=== PATIENT | female | born 1960 | race Caucasian/White ===

== ENCOUNTER → 2017-12-08 08:47 | Outpatient (CLI) | payer OTHER, SELFPAY ==
[2017-12-08 09:40] LABS: AST(SGOT) 19 U/L (15-37); Alanine Aminotransfer ALT/SGPT 26 U/L (13-56); Albumin, Serum 3.7 g/dL (3.2-5.0); Alkaline Phosphatase 95 U/L (45-117); Bilirubin, Direct 0.18 mg/dL (0.00-0.30); Cholesterol 201 mg/dL (200); Globulin 4.1 g/dL (2.2-4.2); High Density Lipoprotein 43 mg/dL; Protein, Total 7.8 g/dL (6.4-8.2); Triglycerides 305 mg/dL; Very Low Density Lipoprotein 61 mg/dL (5-40)
== END ==
PROVIDERS: Family Provider Family Medicine; PCP Family Medicine; Visit Provider Internal Medicine Cardiovascular Disease
DX: E78.5 Hyperlipidemia, unspecified (principal); I25.10 Atherosclerotic heart disease of native coronary artery without angina pectoris; Z79.899 Other long term (current) drug therapy
CPT/HCPCS: 36415; 80061; 80076

== ENCOUNTER → 2017-12-21 16:12 | Outpatient (CLI) | payer BC, SELFPAY ==
--- NOTE | 2017-12-21 16:16 | HPBI_ITS ---
MAMMOGRAPHY - BILATERAL SCREENING REASON FOR EXAM: Female, 57 years old. Routine annual screening examination. PERTINENT HISTORY: Non-contributory. TECHNIQUE: Digital bilateral breast ivory (3D mammographic acquisition) in the CC and MLO projections. 2-D mediolateral oblique (MLO) and craniocaudad (CC) views of both breasts were obtained. CAD: Full Field Digital Mammography with Computer Added Detection was performed. COMPARISON: Comparison is made with prior study date August 09, 2016 and August 05, 2015. FINDINGS: Breast Composition: There are scattered areas of fibroglandular density. There are no dominant masses or suspicious calcifications. No other significant abnormalities are identified. There has been no significant change since the prior study. HPBI/SCREENING MAMM (CAD), BILAT IMPRESSION: Stable bilateral screening mammogram. Yearly follow-up mammogram recommended. (A) ASSESSMENT CATEGORY: BIRADS Category 1: Negative. A letter regarding these results will be sent to the patient by the facility within 30 days. Approximately 10% of breast cancers are not detected by mammography. A normal mammogram should not delay biopsy of a clinically suspicious abnormality. [id number] Electronically Signed: David Cox MD at 9:55 EST Tel [phone], Service support ,
== END ==
PROVIDERS: Family Provider Family Medicine; PCP Family Medicine; Visit Provider Family Medicine
DX: Z12.31 Encounter for screening mammogram for malignant neoplasm of breast (principal)
CPT/HCPCS: 77063; 77067

== ENCOUNTER → 2017-12-27 06:17 | Outpatient (CLI) | payer BC, SELFPAY ==
--- NOTE | 2017-12-27 13:00 | STRESSREP ---
Stress Test Report Exercise myocardial perfusion stress test. 57-year-old lady with a history of midsternal chest burning with activity medications simvastatin Plavix metoprolol aspirin. Status post stents in December 2013. Stress protocol: Resting EKG demonstrates sinus rhythm with rate of 71 bpm normal intervals are noted resting blood pressure is 130/80 mmHg. The patient exercised according to the regular Samuel protocol for total duration of 7 minutes and 30 seconds. Patient completed 1 minute and 30 seconds into stage III of the Samuel protocol. The maximum heart rate attained was 146 bpm which was 90% of maximum predicted heart rate the maximum workload attained was 9.3 metabolic equivalents. At rest there were no ST or T-wave changes noted suggest abnormal flow reserve or ischemia at peak exercise upsloping ST changes only were noted with normally the criteria for ischemia. No clinical angina was noted. The resting blood pressure is 130/80 mmHg with a peak blood pressure 142/78 mmHg rate pressure product was 18,600. Myocardial perfusion protocol. 11.3 mCi of technetium 99m sestamibi was injected at rest. The patient exercised according to regular Samuel protocol for 7 minutes 30 seconds attaining 90% maximum predicted heart rate at peak exercise 33.1 mCi of technetium 99m sestamibi was injected stress images were obtained stress and rest images were reconstructed and compared in the short axis vertical long and horizontal long axis. Patient experienced midsternal burning during the exercise which helps appeared to subside on discontinuation of exercise. Perfusion SPECT analysis: Review of the stress images demonstrate Uniform uptake of tracer noted in all areas myocardium. There is a very small portion of the mid anterior wall with mildly reduced perfusion which appears to improved somewhat on the resting. Ischemia cannot be completely excluded on the scan though less likely. No obvious areas of infarct are noted. Gated SPECT analysis: The gated ejection fraction is noted to be 82%. Conclusion: Exercise myocardial perfusion stress test with possible mid anterior ischemia at a moderate to high workload. Chest burning of uncertain clinical significance. Preserved ejection fraction.
== END ==
PROVIDERS: Family Provider Family Medicine; PCP Family Medicine; Visit Provider Physician Assistant Medical
DX: R07.9 Chest pain, unspecified (principal)
CPT/HCPCS: 78452; 93017; A9500; A4216

== ENCOUNTER → 2017-12-28 08:42 | Outpatient (CLI) | payer BC, SELFPAY ==
--- NOTE | 2017-12-28 08:55 | RAD_ITS ---
STUDY: X-RAY CHEST REASON FOR EXAM: Female, 57 years old. One month history of chest pain and shortness of breath. Abnormal stress test. TECHNIQUE: PA and lateral views of the chest. COMPARISON: Comparison is made with prior study June 22, 2014. FINDINGS: Hyperinflation. There is no demonstrated pleural abnormality. Normal size heart. Normal mediastinum and noa. Normal visualized pulmonary arteries. Normal visualized aortic arch and descending thoracic aorta. There is demineralization of the osseous structures. Normal visualized ribs, clavicles, and shoulders. There is no demonstrated abnormality of the visualized soft tissue structures of the upper abdomen. RAD/Chest PA and Lateral IMPRESSION: No acute abnormality is seen. Electronically Signed: David Cox MD at 15:32 EDT Tel [phone], Service support ,
[2017-12-28 09:29] LABS: Absolute Lymphocyte Count 2.17 X10^3/ul (0.83-4.51); Absolute Neutrophil Count 2.6 X10^3/uL (2.0-7.7); Basophil# 0.04 X10^3/uL; Basophil% 0.7 % (0-1); Eosinophil# 0.24 X10^3/uL; Eosinophils% 4.4 % (0-5); Hemoglobin 13.3 g/dl (12.0-15.0); Lymphocyte # 2.17 X10^3/ul (4.0); Lymphocyte % 39.4 % (19-41); Mean Corp Hgb Conc 31.7 g/gl (32-36); Mean Corpuscular Hgb 27.4 pg (27.0-32.0); Mean Corpuscular Volume 86.6 fL (81-99); Monocyte# 0.41 X10^3/uL; Monocyte% 7.4 % (0-10); Neutrophil # 2.64 X10^3/uL (2.7-7.7); Neutrophil % 47.9 % (47-70); Platelet Count 355 K/mm3 (150-450); Prothrombin Time (Protime)PT. 12.7 SECONDS (11.7-14.9); RBC Distribution Width CV 13.8 % (11.6-14.6); RBC Distribution Width SD 43.4 fl (35.1-43.9); Red Blood Count 4.85 M/mm3 (4.2-5.4); White Blood Count 5.5 K/mm3 (4.4-11.0)
[2017-12-28 09:30] LABS: Partial Thromboplast Time 26.9 Seconds (24.1-36.2)
[2017-12-28 09:33] LABS: POSITIVE COUNT NO; POSITIVE DIFFERENTIAL NO; POSITIVE MORPHOLOGY NO
[2017-12-28 09:49] LABS: Anion Gap 9 (5-15); BUN 10 mg/dL (7-18); BUN/Creat Ratio 10.2 RATIO (10-20); Chloride 107 mmol/L (98-107); Creatinine, Serum 0.98 mg/dL (0.55-1.02); EST Glomerular Filtration Rate 62 mL/min (>60); Est Glom Filt Rate - Afr Amer 75 mL/min (>60); Glucose 94 mg/dL (74-106); Potassium 3.9 mmol/L (3.5-5.1); Sodium Level 143 mmol/L (136-145)
== END ==
PROVIDERS: Family Provider Family Medicine; PCP Family Medicine; Visit Provider Physician Assistant Medical
DX: I25.10 Atherosclerotic heart disease of native coronary artery without angina pectoris (principal); R07.9 Chest pain, unspecified; R94.39 Abnormal result of other cardiovascular function study
CPT/HCPCS: 36415; 71046; 80048; 85025; 85610; 85730

== ENCOUNTER → 2018-01-03 06:53 | Day surgery (SDC) | payer BC, SELFPAY ==
[2018-01-02 13:51] VITALS: BMI 26.6
--- NOTE | 2018-01-03 07:37 | EKG12_ITS ---
Test Reason : PRE CATH Blood Pressure : / mmHG Vent. Rate : 062 BPM Atrial Rate : 062 BPM P-R Int : 176 ms QRS Dur : 088 ms QT Int : 412 ms P-R-T Axes : 041 036 045 degrees QTc Int : 418 ms Normal sinus rhythm Normal ECG When compared with ECG of 22-JUN-2014 23:10, Nonspecific T wave abnormality no longer evident in Inferior leads T wave amplitude has increased in Anterolateral leads Confirmed by CHELA VEGA ([id number]), newspaper editor managing KYLEE ARIAS ([id number]) on 01/05/2018 3:18:05 PM Referred By: Fede Andre Confirmed By:CHELA VEGA
--- NOTE | 2018-01-03 08:46 | CL.D_ITS ---
Patient Name: ANTIONE BULLOCK Study Date: 01/03/2018 Performing: Fede Andre MD Ht: 64.17 inches 163 cm : 1960 Wt: 154.32 lbs 70 kg Age: 57 Gender: female BSA: 1.76 PROCEDURE(S) PERFORMED [id number]/LV CLINICAL PROFILE AND INDICATIONS INDICATIONS: 57-year-old lady with a history of previous coronary artery disease and chest pain w ith abnormal stress test.. Stress/Imaging Standard Exercise Stress Test: Yes Result: Positive Low Risk Angina Classification Anginal Classification w/in 2 Weeks: No symptoms CAD Presentations: Symptom unlikely to be ischemic. CONCLUSIONS Coronary artery disease with previously placed stents in the LAD, circumflex, and right coronary shin ry all patent RECOMMENDATIONS Medical therapy DESCRIPTION OF PROCEDURE The patient arrived to the procedure lab. The risks and benefits of the procedure as well as a full d escription of our services here and current unavailability of surgical backup were fully explained to the patient and/or their significant other prior to the catheterization. The Timeout was completed, verifying the correct patient and procedure. The patient's procedural site was prepped and draped in the usual fashion. Local anesthetic was given subcutaneously to right groin region with Lidocaine 2%. Using a modified Seldinger technique, arterial access was obtained via the right femoral artery, a 5 Fr sheath was inserted. Left Coronary Artery selective angiography was performed in multiple views u sing a 5 Fr. JL4 catheter. Right Coronary Artery selective angiography was then performed in multiple views using a 5 Fr. 3DRC (Benedicto) catheter. Left Ventriculography was performed in GURROLA projection using a 5 Fr. Pigtail catheter. LV to AO pullback pressures were then recorded.The arterial sheath wa s pulled and manual compression applied until hemostasis is achieved. CORONARY ANGIOGRAPHY DOMINANCE: Right Dominant LEFT HEART ASSESSMENT Left Ventricular Ejection Fraction: by LV Gram 60 % Normal Left Ventricular systolic function LEFT MAIN: Angiographically normal LEFT ANTERIOR DECENDING ARTERY: Mild luminal irregularities MID LAD: Previously placed stent is patent CIRCUMFLEX ARTERY: MID CIRC: Previously placed stent is patent RIGHT CORONARY ARTERY: MID RCA: Mild luminal irregularities, Previously placed stent is patent COMPLICATIONS No Complications PROCEDURE MEDICATIONS Versed 1 mg IV Versed 1 mg IV Oxygen: 2 L/min via nasal cannula SUMMARY OF HEMODYNAMIC DATA Time AIR REST ECG 07:37:05 AO 130/72 (95) SA 08:03:35 LV 114/3, 10 08:10:50 LV 115/3, 11 08:10:56 LV 107/-3, 16 08:11:37 LVp 113/-4, 16 08:11:43 AOp 120/60 (86) 08:11:48 Signed By Fede Andre MD On 01/03/2018 8:45:56 AM Fede Andre MD
== END ==
PROVIDERS: Family Provider Family Medicine; PCP Family Medicine; Visit Provider Internal Medicine Cardiovascular Disease
DX: R07.89 Other chest pain (principal); I25.10 Atherosclerotic heart disease of native coronary artery without angina pectoris; R94.39 Abnormal result of other cardiovascular function study; Z95.5 Presence of coronary angioplasty implant and graft; E78.5 Hyperlipidemia, unspecified; R53.83 Other fatigue; R10.13 Epigastric pain; Z79.899 Other long term (current) drug therapy; Z79.02 Long term (current) use of antithrombotics/antiplatelets; Z79.82 Long term (current) use of aspirin; Z82.49 Family history of ischemic heart disease and other diseases of the circulatory system
CPT/HCPCS: 93005; 93458; 99152; J7040; C1769; Q9967

== ENCOUNTER 2018-01-30 07:37 | Day surgery (SDC) | payer BC, SELFPAY ==
[2018-01-30 08:01] VITALS: BP 111/76; PULSE 93; RESP 16; TEMP 36.2; O2SAT 97; BMI 26.1
--- NOTE | 2018-01-30 09:19 | PCM.OPRPT ---
Problem List (1) Epigastric pain Status: Acute (2) Gastro-esophageal reflux disease without esophagitis Status: Acute (3) Colon cancer screening Status: Acute Report of Operation Date of Procedure: 01/30/18 Pre-Operative Diagnosis: r10.13 epigastric abdominal pain. k21.9 gastroesophageal reflux disease without esophagitis. z12.11 screening colonoscopy Post-Operative Diagnosis: Same Surgery/Procedure Performed:: 54026 esophagogastroduodenoscopy. 45787 colonoscopy Type of Anesthesia:: MAC Anesthesiologist: Ozzy Camp Description of Procedure: Patient was brought into the endoscopy suite. Back of her throat was sprayed with Cetacaine spray. Bite-block was placed. She was placed in the left lateral decubitus position. She was given graded anesthesia. The scope was inserted in the back of the oropharynx and directed down the esophagus into the stomach and into the duodenum without difficulty. Operative findings: 1. Duodenum: Normal appearance no mass lesions no ulcerations. 2. Stomach: Normal appearance no mass lesions retroflexion showed a small hiatal hernia. She did have a few fundic gland polyps which I did not biopsy since she was on her Plavix. 3. Esophagus: Normal appearance no mass lesions no signs of esophagitis Z line was entirely normal. The scope was inserted into the rectum. Scope was directed through the sigmoid colon, descending colon, transverse colon, ascending colon, to the cecum. Operative findings: 1. Cecum: Normal appearance no mass lesions normal ileocecal valve. 2. Ascending colon: Normal appearance no mass lesions. 3. Transverse colon: Normal appearance no mass lesions 4. Descending colon: Normal appearance no mass lesions 5. Sigmoid colon: Normal appearance no mass lesion diffuse scattered diverticuli were identified. 6. Rectum: Normal appearance no mass lesions few internal hemorrhoids the scope was withdrawn. Digital rectal exam was performed showing a smooth prostate. The patient will need another colonoscopy in 10 years. Given the fact that there is absolutely no signs of any abnormalities in the esophagus I am going to have to obtain esophageal manometry to assess the motility of the esophagus. - Admit VTE Documentation VTE Present on Admission: No VTE Mechan Device Prophylaxis: None VTE Pharm Prophylaxis ordered?: No Reason prophylaxis not ordered:: Treatment Not Indicated
[2018-01-30 09:21] VITALS: BP 105/60; BP 111/76; PULSE 78; RESP 16; TEMP 36.4; O2SAT 95
[2018-01-30 09:25] VITALS: BP 105/65; BP 111/76; PULSE 72; RESP 16; O2SAT 98
[2018-01-30 09:30] VITALS: BP 111/76; BP 97/60; PULSE 70; RESP 16; O2SAT 96
[2018-01-30 09:35] VITALS: BP 106/61; BP 111/76; PULSE 68; RESP 16; TEMP 36.6; O2SAT 96
[2018-01-30 10:13] VITALS: BP 111/76
== END 2018-01-30 10:14 | disposition home or self-care (01) ==
LOC: EN 07:39 → AC 07:39
PROVIDERS: Family Provider Family Medicine; PCP Family Medicine; Visit Provider Surgery
PROC: 0DJD8ZZ Inspection of Lower Intestinal Tract, Via Natural or Artificial Opening Endoscopic (ICD-10-PCS; CPT 45378; principal; 2018-01-30 08:55)
DX: Z12.11 Encounter for screening for malignant neoplasm of colon (principal); K44.9 Diaphragmatic hernia without obstruction or gangrene; K21.9 Gastro-esophageal reflux disease without esophagitis; K31.7 Polyp of stomach and duodenum; K64.8 Other hemorrhoids; J45.909 Unspecified asthma, uncomplicated; I25.10 Atherosclerotic heart disease of native coronary artery without angina pectoris; E78.5 Hyperlipidemia, unspecified; F32.9 Major depressive disorder, single episode, unspecified; F41.9 Anxiety disorder, unspecified; Z79.82 Long term (current) use of aspirin; Z79.899 Other long term (current) drug therapy; Z78.0 Asymptomatic menopausal state; Z95.5 Presence of coronary angioplasty implant and graft
CPT/HCPCS: 43235; 45378; J7120

== ENCOUNTER 2018-03-02 19:45 | Emergency (ER) | payer BC, SELFPAY ==
[2018-03-02 19:46] VITALS: BP 131/81; PULSE 94; RESP 16; TEMP 37; O2SAT 95; BMI 26.6
[2018-03-02 19:49] VITALS: O2SAT 98
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
[2018-03-02 19:59] VITALS: BP 140/74; PULSE 86; RESP 16; O2SAT 95
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
[2018-03-02] MEDS: Ondansetron 4 MG/2 ML Vial IV ×2 (20:02→21:15)
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
[2018-03-02 20:19] LABS: Absolute Lymphocyte Count 4.35 X10^3/ul (0.83-4.51); Absolute Neutrophil Count 3.7 X10^3/uL (2.0-7.7); Basophil# 0.05 X10^3/uL; Basophil% 0.6 % (0-1); Eosinophils% 2.2 % (0-5); Hematocrit 36.9 % (37-47); Hemoglobin 12.4 g/dl (12.0-15.0); Lymphocyte # 4.35 X10^3/ul (4.0); Lymphocyte % 48.4 % (19-41); Mean Corp Hgb Conc 33.6 g/gl (32-36); Mean Corpuscular Hgb 28.3 pg (27.0-32.0); Mean Corpuscular Volume 84.2 fL (81-99); Mean Platelet Vol. 10.5 fl (6.2-12.0); Monocyte# 0.69 X10^3/uL; Monocyte% 7.7 % (0-10); Neutrophil # 3.67 X10^3/uL (2.7-7.7); Neutrophil % 40.9 % (47-70); POSITIVE COUNT NO; POSITIVE DIFFERENTIAL NO; POSITIVE MORPHOLOGY NO; Platelet Count 342 K/mm3 (150-450); RBC Distribution Width CV 13.9 % (11.6-14.6); RBC Distribution Width SD 42.7 fl (35.1-43.9); Red Blood Count 4.38 M/mm3 (4.2-5.4)
[2018-03-02 20:26] LABS: Anion Gap 13 (5-15); BUN 13 mg/dL (7-18); Calcium,Total 8.7 mg/dL (8.5-10.1); Chloride 109 mmol/L (98-107); Creatinine, Serum 1.08 mg/dL (0.55-1.02); EST Glomerular Filtration Rate 55 mL/min (>60); Est Glom Filt Rate - Afr Amer 67 mL/min (>60); Estimated Creatinine Clearance 48.43 ml/min; Glucose 115 mg/dL (74-106); Potassium 3.2 mmol/L (3.5-5.1); Sodium Level 144 mmol/L (136-145)
[2018-03-02 20:43] VITALS: BP 137/70; PULSE 101; RESP 18; O2SAT 100; O2SAT 99
[2018-03-02 20:43] LABS: AST(SGOT) 28 U/L (15-37); Alanine Aminotransfer ALT/SGPT 28 U/L (13-56); Albumin, Serum 3.9 g/dL (3.2-5.0); Alkaline Phosphatase 83 U/L (45-117); Bilirubin, Direct 0.14 mg/dL (0.00-0.30); Globulin 3.4 g/dL (2.2-4.2); Protein, Total 7.3 g/dL (6.4-8.2)
[2018-03-02 21:31] VITALS: BP 129/73; PULSE 87; RESP 16; O2SAT 100
--- NOTE | 2018-03-02 21:41 | ED.RN ---
dhruv here- transferring to [facility]. family members present. pt is very lethargic but can answer questions appropriately. flight nurses agreed to not given dilaudid at this time d/t mental status.
== END 2018-03-02 21:43 | disposition short-term general hospital (02) ==
PROVIDERS: Emergency Provider Emergency Medicine; Family Provider Family Medicine; PCP Family Medicine
DX: S06.5X0A Traumatic subdural hemorrhage without loss of consciousness, initial encounter (principal); V89.2XXA Person injured in unspecified motor-vehicle accident, traffic, initial encounter; Y93.9 Activity, unspecified; Y92.9 Unspecified place or not applicable; Y99.9 Unspecified external cause status; Z79.02 Long term (current) use of antithrombotics/antiplatelets; Z79.82 Long term (current) use of aspirin; Z79.899 Other long term (current) drug therapy; Z95.5 Presence of coronary angioplasty implant and graft
CPT/HCPCS: 51702; 70450; 71260; 72125; 74177; 80048; 80076; 85025; 96361; 96374; 96376; 99285; J7030; Q9967; J2405

== ENCOUNTER 2018-03-10 15:16 | Emergency (ER) | payer BC, SELFPAY ==
[2018-03-10 15:17] VITALS: BP 136/87; PULSE 86; RESP 14; TEMP 36.9; O2SAT 94; BMI 26.7
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
[2018-03-10] MEDS: Ondansetron 4 MG/2 ML Vial IV (15:55)
[2018-03-10] MEDS: 0.9% Normal Saline 1,000 ML 150 ML IV (15:56)
[2018-03-10] MEDS: HYDROmorphone 1 MG/ML Syringe IV (15:56)
[2018-03-10 16:32] VITALS: BP 139/76; PULSE 62; RESP 12; O2SAT 95
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
[2018-03-10 17:36] VITALS: BP 138/76; PULSE 60; RESP 14; O2SAT 93
[2018-03-10 18:04] VITALS: BP 120/78; PULSE 62; RESP 15; O2SAT 99
--- NOTE | 2018-03-10 18:17 | DCINST.ED_ITS ---
ED Disposition - Plan for ED Patient: Chief Complaint: Head Injury Instructions: ED Cephalgia Unspecified Prescriptions: Ondansetron [Zofran Odt] 4 mg PO Q8H PRN PRN #10 tab PRN Reason: Nausea Hydrocodone/Acetaminophen [[place] 5-325 Tablet] 1 - 2 each PO 4X/DAY PRN PRN 5 Days #20 tablet PRN Reason: Pain Referrals: Charlotte Fatima DO [Primary Care Provider] - Additional Instructions: Follow up with Dr. Guerrero next week as scheduled. Don't take plavix again until after you see him.
[2018-03-10] MEDS: Ondansetron 4 MG/2 ML Vial IM (18:21)
--- NOTE | 2018-03-10 18:56 | ED.RN ---
PT SAT UP FOR DISCHARGE AND BEGAN VOMITING. DR. SIERRA INFORMED. WROTE FOR ZOFRAN IM, AND HOME GOING PRESCRIPTIONS THAT WAS ELECTRONICALLY SUBMITTED TO PT PHARMACY. PT OBSERVED FOR AWHILE, AND THEN PLACED INTO WHEELCHAIR. PT WHEELED OUT OF DEPT. PT TOLERATED WELL BUT REPORTED CONTINUED NAUSEA.
== END 2018-03-10 18:58 | disposition home or self-care (01) ==
LOC: ED 15:37
PROVIDERS: Emergency Provider Emergency Medicine; Family Provider Family Medicine; PCP Family Medicine
DX: S06.5X9D Traumatic subdural hemorrhage with loss of consciousness of unspecified duration, subsequent encounter (principal); V49.9XXD Car occupant (driver) (passenger) injured in unspecified traffic accident, subsequent encounter; I25.10 Atherosclerotic heart disease of native coronary artery without angina pectoris; Z79.02 Long term (current) use of antithrombotics/antiplatelets; Z79.82 Long term (current) use of aspirin; Z79.899 Other long term (current) drug therapy; Z88.5 Allergy status to narcotic agent
CPT/HCPCS: 70450; 96361; 96372; 96374; 96375; 99285; J7030; J2405

== ENCOUNTER 2018-08-21 12:00 | Outpatient (RCR) | payer BC, SELFPAY ==
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
== END 2018-08-21 19:00 | disposition home or self-care (01) ==
LOC: SP 12:00
PROVIDERS: Family Provider Family Medicine; PCP Family Medicine
DX: S06.5X9D Traumatic subdural hemorrhage with loss of consciousness of unspecified duration, subsequent encounter (principal); R41.3 Other amnesia
CPT/HCPCS: 92507; 92523

== ENCOUNTER → 2018-10-16 07:56 | Outpatient (CLI) | payer BC, SELFPAY ==
[2018-10-16 10:59] LABS: AST(SGOT) 22 U/L (15-37); Alanine Aminotransfer ALT/SGPT 26 U/L (13-56); Albumin, Serum 3.9 g/dL (3.2-5.0); Alkaline Phosphatase 92 U/L (45-117); Bilirubin, Direct 0.22 mg/dL (0.00-0.30); Cholesterol 180 mg/dL (200); Globulin 3.8 g/dL (2.2-4.2); High Density Lipoprotein 49 mg/dL; Protein, Total 7.7 g/dL (6.4-8.2); Triglycerides 280 mg/dL; Very Low Density Lipoprotein 56 mg/dL (5-40)
== END ==
PROVIDERS: Family Provider Family Medicine; PCP Family Medicine; Referring Provider Internal Medicine Cardiovascular Disease; Visit Provider Internal Medicine Cardiovascular Disease
DX: E78.5 Hyperlipidemia, unspecified (principal)
CPT/HCPCS: 36415; 80061; 80076

== ENCOUNTER → 2018-12-28 13:13 | Outpatient (CLI) | payer BC, SELFPAY ==
[2018-10-30 14:07] VITALS: BMI 26.4
--- NOTE | 2018-12-28 13:18 | MRI_ITS ---
STUDY: MRI BRAIN WITHOUT CONTRAST REASON FOR EXAM: Female, 58 years old. Headache. Previous surgery to relieve subdural hematoma. TECHNIQUE: Standardized multiplanar fat and water weighted pulse sequences were obtained. COMPARISON: CT head without contrast 03/10/2018. FINDINGS: No restricted diffusion to suspect acute or subacute ischemic infarct. Normal size of the ventricles and extra-axial spaces for the patient's age. Normal white matter tracts of the supratentorial brain. Normal bilateral basal ganglia. Normal thalami. There is no extra-axial fluid accumulation. Normal flow voids within the major intracranial circulation suggesting patency by spin echo criteria. Normal sella turcica, pituitary gland, infundibular stalk, optic chiasm and hypothalamus. Normal tectal plate and pineal gland. Normal midbrain, claude and medulla. Normal cerebellum. Normal basal cisterns. Normal bilateral temporal bones. Normal bilateral internal auditory canals. No demonstrated orbital abnormality, within the constraints of a routine brain study. Normal visualized paranasal sinuses. Normal calvarium and skull base. Normal visualized soft tissue structures. Normal visualized upper cervical spine. MRI/Brain without Contrast IMPRESSION: 1. No MRI evidence of recurrent or residual subdural hematoma following surgical evacuation. 2. Normal MRI of the brain without contrast. Electronically Signed: Roberth Todd MD at 14:03 EDT , Service support ,
== END ==
PROVIDERS: Family Provider Family Medicine; PCP Family Medicine; Referring Provider Family Medicine; Visit Provider Family Medicine
DX: H93.19 Tinnitus, unspecified ear (principal); R51 Headache; Z86.73 Personal history of transient ischemic attack (TIA), and cerebral infarction without residual deficits
CPT/HCPCS: 70551

== ENCOUNTER → 2019-01-11 07:42 | Outpatient (CLI) | payer BC, SELFPAY ==
[2018-10-30 14:07] VITALS: BMI 26.4
--- NOTE | 2019-01-11 07:44 | BI_ITS ---
MAMMOGRAPHY - BILATERAL SCREENING REASON FOR EXAM: Female, 58 years old. Routine annual screening examination. PERTINENT HISTORY: Non-contributory. TECHNIQUE: Digital bilateral breast ivory (3D mammographic acquisition) in the CC and MLO projections. 2-D mediolateral oblique (MLO) and craniocaudad (CC) views of both breasts were obtained. CAD: Full Field Digital Mammography with Computer Added Detection was performed. COMPARISON: Comparison is made with prior study dated December 21, 2017 and August 09, 2016. FINDINGS: Breast Composition: There are scattered areas of fibroglandular density. There are no dominant masses or suspicious calcifications. No other significant abnormalities are identified. There has been no significant change since the prior study. BI/SCREENING MAMM (CAD), BILAT IMPRESSION: Stable bilateral screening mammogram. Yearly follow-up mammogram recommended. (A) ASSESSMENT CATEGORY: BIRADS Category 1: Negative. A letter regarding these results will be sent to the patient by the facility within 30 days. Approximately 10% of breast cancers are not detected by mammography. A normal mammogram should not delay biopsy of a clinically suspicious abnormality. [id number] Electronically Signed: David Cox, at 9:57 EDT , Service support ,
== END ==
PROVIDERS: Family Provider Family Medicine; PCP Family Medicine; Referring Provider Family Medicine; Visit Provider Family Medicine
DX: Z12.31 Encounter for screening mammogram for malignant neoplasm of breast (principal)
CPT/HCPCS: 77063; 77067

== ENCOUNTER → 2019-07-28 08:33 | Outpatient (CLI) | payer BC, SELFPAY ==
[2018-10-30 14:07] VITALS: BMI 26.4
[2019-07-28 10:05] LABS: AST(SGOT) 19 U/L (15-37); Alanine Aminotransfer ALT/SGPT 28 U/L (13-56); Albumin, Serum 3.8 g/dL (3.2-5.0); Alkaline Phosphatase 94 U/L (45-117); Cholesterol 159 mg/dL (200); Globulin 4.1 g/dL (2.2-4.2); High Density Lipoprotein 45 mg/dL; Protein, Total 7.9 g/dL (6.4-8.2); Triglycerides 178 mg/dL; Very Low Density Lipoprotein 36 mg/dL (5-40)
== END ==
PROVIDERS: Family Provider Family Medicine; PCP Family Medicine; Referring Provider Internal Medicine Cardiovascular Disease; Visit Provider Internal Medicine Cardiovascular Disease
DX: E78.5 Hyperlipidemia, unspecified (principal)
CPT/HCPCS: 36415; 80061; 80076

== ENCOUNTER → 2020-08-06 16:15 | Outpatient (CLI) | payer BC, SELFPAY ==
[2020-02-06 10:38] VITALS: BMI 27.8
--- NOTE | 2020-08-06 16:17 | BI_ITS ---
MAMMOGRAPHY - BILATERAL SCREENING REASON FOR EXAM: Female, 60 years old. Routine annual screening examination. PERTINENT HISTORY: Non-contributory. TECHNIQUE: Digital bilateral breast henny (3D mammographic acquisition) in the CC and MLO projections. 2-D mediolateral oblique (MLO) and craniocaudad (CC) views of both breasts were obtained. CAD: Full Field Digital Mammography with Computer Added Detection was performed. COMPARISON: Comparison is made with prior study dated 01/11/2019 and 12/21/2017. FINDINGS: Breast Composition: There are scattered areas of fibroglandular density. There are no dominant masses or suspicious calcifications. No other significant abnormalities are identified. There has been no significant change since the prior study. BI/SCREEN MAMM (CAD) W/HENNY BILAT IMPRESSION: Stable bilateral screening mammogram. Yearly follow-up mammogram recommended. (A) ASSESSMENT CATEGORY: BIRADS Category 1: Negative. A letter regarding these results will be sent to the patient by the facility within 30 days. Approximately 10% of breast cancers are not detected by mammography. A normal mammogram should not delay biopsy of a clinically suspicious abnormality. [id number] Electronically Signed: David Cox, at 8:22 EDT , Service support ,
== END ==
PROVIDERS: PCP Family Medicine; Referring Provider Family Medicine; Visit Provider Family Medicine
DX: Z12.31 Encounter for screening mammogram for malignant neoplasm of breast (principal)
CPT/HCPCS: 77063; 77067

== ENCOUNTER → 2020-09-03 09:02 | Outpatient (CLI) | payer MEDICARE, SELFPAY ==
[2020-02-06 10:38] VITALS: BMI 27.8
[2020-09-03 13:24] LABS: AST(SGOT) 21 U/L (15-37); Alanine Aminotransfer ALT/SGPT 37 U/L (13-56); Albumin, Serum 3.9 g/dL (3.2-5.0); Alkaline Phosphatase 82 U/L (45-117); Bilirubin, Direct 0.18 mg/dL (0.00-0.30); Cholesterol 174 mg/dL (200); Globulin 3.8 g/dL (2.2-4.2); High Density Lipoprotein 45 mg/dL; Protein, Total 7.7 g/dL (6.4-8.2); Triglycerides 234 mg/dL; Very Low Density Lipoprotein 47 mg/dL (5-40)
== END ==
PROVIDERS: PCP Family Medicine; Visit Provider Physician Assistant Medical
DX: I25.10 Atherosclerotic heart disease of native coronary artery without angina pectoris (principal); E78.00 Pure hypercholesterolemia, unspecified
CPT/HCPCS: 36415; 80061; 80076

== ENCOUNTER → 2020-12-16 07:12 | Outpatient (CLI) | payer MEDICARE, SELFPAY ==
[2020-12-04 10:53] VITALS: BMI 27.6
--- NOTE | 2020-12-16 08:49 | STRESSREP ---
Stress Test Report Date: 12-16-2020 Procedure: Exercise tolerance test/imaging study Indications: Chest pain; CAD; PCI: Status post COVID-19 Consent: Per the patient Procedure: The patient exercised on a Samuel protocol for 6 minutes completing Stage II achieving a peak heart rate of 139 bpm (87% predicted maximal heart rate) with a peak blood pressure 162/60 mmHg and a peak MET capacity of 7 METs. The baseline ECG demonstrated normal sinus rhythm. The peak exercise ECG demonstrated no obvious ECG changes. There were no cardiac dysrhythmias pretest, during exercise, or recovery. The functional capacity was considered average. There was the patient noted a little burning and a little shortness of breath with subsequent spontaneous resolution. The examination was discontinued secondary to dyspnea. Impression: 1. Technically adequate (percent predicted maximal heart rate greater than 85%) exercise tolerance test 2. Peak exercise ECG with no obvious ECG changes 3. There were no cardiac dysrhythmias pretest, during exercise, or recovery 4. Nuclear images pending Myocardial perfusion imaging study: Technique: The patient was injected with 11.3 mCi of technetium 99m Cardiolite and subsequently rest SPECT Cardiolite nuclear imaging was obtained in the horizontal long, vertical long, and short axis views. The patient exercised on a Samuel protocol for 6 minutes completing Stage II achieving a peak heart rate of 139 bpm (87% predicted maximal heart rate) with a peak blood pressure 162/60 mmHg and a peak MET capacity of 7 METs. The patient was injected with 32.1 mCi of technetium 99m Cardiolite and subsequently stress SPECT Cardiolite nuclear imaging was obtained in the horizontal long, vertical long, and short axis views. A gated Cardiolite study at peak stress was obtained. Interpretation: Rest and stress SPECT Cardiolite nuclear imaging status post realignment, normalization, and attenuation correction, demonstrates the appearance of body motion during image acquisition and the appearance of a small area of subtle diminished tracer uptake in the mid anterior segments which appears to be more prominent at rest as opposed to stress. There is end systolic thickening and brightening. The gated Cardiolite study demonstrates myocardial thickening and inward wall motion. The reported LVEF is 75%. Impression: 1. Rest and stress SPECT Cardiolite nuclear imaging demonstrate a small area of subtle diminished tracer uptake in the mid anterior segments which appears to be more prominent at rest as opposed to stress appearing compatible with shifting soft tissue attenuation/artifact with no myocardial perfusion changes considered diagnostic for associated stress-induced myocardial ischemia. 2. The gated Cardiolite study reports an LVEF of 75%. This note was generated with [employer] software. It may contain incorrect words, spelling, and punctuation that were not noted in checking the note before signing.
== END ==
PROVIDERS: PCP Family Medicine; Referring Provider Internal Medicine Cardiovascular Disease; Visit Provider Internal Medicine Cardiovascular Disease
DX: Z95.5 Presence of coronary angioplasty implant and graft (principal)
CPT/HCPCS: 78452; 93017; A9500; A4216

== ENCOUNTER → 2021-05-25 09:42 | Outpatient (CLI) | payer MEDICARE, SELFPAY ==
[2020-12-04 10:53] VITALS: BMI 27.6
[2021-05-25 11:17] LABS: AST(SGOT) 22 U/L (15-37); Alanine Aminotransfer ALT/SGPT 36 U/L (13-56); Albumin, Serum 3.9 g/dL (3.2-5.0); Alkaline Phosphatase 73 U/L (45-117); Bilirubin, Direct 0.18 mg/dL (0.00-0.30); Cholesterol 193 mg/dL (200); Globulin 3.8 g/dL (2.2-4.2); High Density Lipoprotein 49 mg/dL; Protein, Total 7.7 g/dL (6.4-8.2); Triglycerides 302 mg/dL; Very Low Density Lipoprotein 60 mg/dL (5-40)
== END ==
PROVIDERS: PCP Family Medicine; Referring Provider Physician Assistant Medical; Visit Provider Physician Assistant Medical
DX: E78.00 Pure hypercholesterolemia, unspecified (principal)
CPT/HCPCS: 36415; 80061; 80076

== ENCOUNTER → 2021-06-06 09:45 | Outpatient (CLI) | payer MEDICARE, SELFPAY ==
[2021-06-06 10:30] LABS: Hemoglobin A1c 5.7 % (3.8-5.6)
== END ==
PROVIDERS: PCP Family Medicine; Visit Provider Physician Assistant Medical
DX: R73.09 Other abnormal glucose (principal)
CPT/HCPCS: 36415; 83036

== ENCOUNTER → 2021-08-10 12:39 | Outpatient (CLI) | payer MEDICARE, SELFPAY ==
--- NOTE | 2021-08-10 12:42 | BI_ITS ---
MAMMOGRAPHY - BILATERAL SCREENING REASON FOR EXAM: Female, 61 years old. Routine annual screening examination. PERTINENT HISTORY: Non-contributory. TECHNIQUE: Digital bilateral breast henny (3D mammographic acquisition) in the CC and MLO projections. 2-D mediolateral oblique (MLO) and craniocaudad (CC) views of both breasts were obtained. CAD: Full Field Digital Mammography with Computer Added Detection was performed. COMPARISON: Comparison is made with prior study dated 08/06/2020 and 01/11/2019. FINDINGS: Breast Composition: There are scattered areas of fibroglandular density. There are no dominant masses or suspicious calcifications. No other significant abnormalities are identified. There has been no significant change since the prior study. BI/SCRN MAMM (CAD)W/HENNY BILAT IMPRESSION: Stable bilateral screening mammogram. Yearly follow-up mammogram recommended. (A) ASSESSMENT CATEGORY: BIRADS Category 1: Negative. A letter regarding these results will be sent to the patient by the facility within 30 days. Approximately 10% of breast cancers are not detected by mammography. A normal mammogram should not delay biopsy of a clinically suspicious abnormality. [id number] Electronically Signed: David Cox MD at 13:18 EDT , Service support ,
== END ==
PROVIDERS: PCP Family Medicine; Referring Provider Family Medicine; Visit Provider Family Medicine
DX: Z12.31 Encounter for screening mammogram for malignant neoplasm of breast (principal)
CPT/HCPCS: 77063; 77067

== ENCOUNTER → 2022-04-09 | Outpatient (CLI) | payer MEDICARE, SELFPAY ==
[2022-04-09 10:18] LABS: AST(SGOT) 26 U/L (15-37); Alanine Aminotransfer ALT/SGPT 39 U/L (13-56); Albumin, Serum 3.6 g/dL (3.2-5.0); Alkaline Phosphatase 76 U/L (45-117); Bilirubin, Direct 0.26 mg/dL (0.00-0.30); Cholesterol 166 mg/dL (200); Globulin 3.7 g/dL (2.2-4.2); High Density Lipoprotein 43 mg/dL; Protein, Total 7.3 g/dL (6.4-8.2); Triglycerides 244 mg/dL; Very Low Density Lipoprotein 49 mg/dL (5-40)
== END | disposition home or self-care (01) ==
PROVIDERS: PCP Family Medicine; Referring Provider Physician Assistant Medical; Visit Provider Physician Assistant Medical
DX: E78.00 Pure hypercholesterolemia, unspecified (principal)
CPT/HCPCS: 36415; 80061; 80076

== ENCOUNTER → 2022-08-18 | Outpatient (CLI) | payer MEDICARE, SELFPAY ==
--- NOTE | 2022-08-18 12:22 | BI_ITS ---
MAMMOGRAPHY - BILATERAL SCREENING REASON FOR EXAM: Female, 62 years old. Routine annual screening examination. PERTINENT HISTORY: Non-contributory. TECHNIQUE: Digital bilateral breast henny (3D mammographic acquisition) in the CC and MLO projections. 2-D mediolateral oblique (MLO) and craniocaudad (CC) views of both breasts were obtained. CAD: Full Field Digital Mammography with Computer Added Detection was performed. COMPARISON: Comparison is made with prior study dated 08/10/2021 and 08/06/2020. FINDINGS: Breast Composition: There are scattered areas of fibroglandular density. There are no dominant masses or suspicious calcifications. No other significant abnormalities are identified. There has been no significant change since the prior study. BI/SCRN MAMM (CAD)W/HENNY BILAT IMPRESSION: Stable bilateral screening mammogram. Yearly follow-up mammogram recommended. (A) ASSESSMENT CATEGORY: BIRADS Category 1: Negative. A letter regarding these results will be sent to the patient by the facility within 30 days. Approximately 10% of breast cancers are not detected by mammography. A normal mammogram should not delay biopsy of a clinically suspicious abnormality. [id number] Electronically Signed: David Cox MD at 13:38 EDT ,
== END | disposition home or self-care (01) ==
LOC: OPBI 12:21
PROVIDERS: PCP Family Medicine; Visit Provider Family Medicine
DX: Z12.31 Encounter for screening mammogram for malignant neoplasm of breast (principal)
CPT/HCPCS: 77063; 77067

== ENCOUNTER → 2022-10-20 | Outpatient (CLI) | payer MEDICARE, SELFPAY ==
[2022-10-20 12:44] LABS: Absolute Lymphocyte Count 2.48 X10^3/uL (0.83-4.51); Absolute Neutrophil Count 4.7 X10^3/uL (2.0-7.7); Basophil# 0.08 X10^3/uL; Eosinophil# 0.27 X10^3/uL; Eosinophils% 3.3 % (0-5); Hematocrit 43.1 % (37-47); Hemoglobin 14.3 g/dL (12.0-15.0); Lymphocyte # 2.48 X10^3/ul (0.83-4.51); Lymphocyte % 30.4 % (19-41); Mean Corp Hgb Conc 33.2 g/dL (32-36); Mean Corpuscular Hgb 29.2 pg (27.0-32.0); Mean Platelet Vol. 10.6 fl (6.2-12.0); Monocyte# 0.65 X10^3/uL; NRBC Flagged by Analyzer 0 % (0-5); Neutrophil # 4.66 X10^3/uL (2.7-7.7); Neutrophil % 56.9 % (47-70); Platelet Count 383 K/mm3 (150-450); RBC Distribution Width CV 12.8 % (11.6-14.6); RBC Distribution Width SD 41.5 fl (35.1-43.9); White Blood Count 8.2 K/mm3 (4.4-11.0)
[2022-10-20 13:09] LABS: AST(SGOT) 20 U/L (15-37); Alanine Aminotransfer ALT/SGPT 31 U/L (13-56); Albumin, Serum 3.9 g/dL (3.2-5.0); Alkaline Phosphatase 76 U/L (45-117); Anion Gap 6 (5-15); BUN 14 mg/dL (7-18); BUN/Creat Ratio 11.6 RATIO (10-20); Calcium,Total 9.2 mg/dL (8.5-10.1); Chloride 106 mmol/L (98-107); Creatinine, Serum 1.21 mg/dL (0.55-1.02); EST Glomerular Filtration Rate 48 mL/min (>60); Est Glom Filt Rate - Afr Amer 58 mL/min (>60); Ferritin 25 ng/mL (8-252); Globulin 4.1 g/dL (2.2-4.2); Glucose 113 mg/dL (74-106); Iron 55 ug/dL (50-170); Magnesium 2.1 mg/dL (1.6-2.6); Potassium 4.4 mmol/L (3.5-5.1); Sodium Level 139 mmol/L (136-145)
[2022-10-20 13:12] LABS: Vitamin B12 228 pg/mL (211-911)
== END | disposition home or self-care (01) ==
PROVIDERS: PCP Family Medicine; Visit Provider Family Medicine
DX: R20.2 Paresthesia of skin (principal); R53.83 Other fatigue; G25.81 Restless legs syndrome; Z51.81 Encounter for therapeutic drug level monitoring; D64.9 Anemia, unspecified
CPT/HCPCS: 36415; 80053; 82607; 82728; 83540; 83735; 85025

== ENCOUNTER → 2022-11-04 | Outpatient (CLI) | payer MEDICARE, SELFPAY ==
--- NOTE | 2022-11-04 14:59 | BD_ITS ---
STUDY: DUAL ENERGY X-RAY ABSORPTIOMETRY / DXA REASON FOR EXAM: Female, 62 years old. M810 TECHNIQUE: Bone Mineral Density (BMD) measurements of lumbar spine and bilateral hips were obtained. COMPARISON: Comparison is made with prior study dated 01/07/2011. FINDINGS: Lumbar Spine (L1-L4): g/cm2 (0.747) / T-score (-2.7) / Z-score (-1.0) Findings are suggestive of osteoporosis with a high fracture risk. Left Femur Total: g/cm2 (0.792) / T-score (-1.2) / Z-score (0.0) Left Femoral Neck: g/cm2 (0.593) / T-score (-2.3) / Z-score (-0.8) Right Femur Total: g/cm2 (0.742) / T-score (-1.6) / Z-score (-0.4) Right Femoral Neck: g/cm2 (0.528) / T-score (-2.9) / Z-score (-1.4) The T-Scores on the most recent prior examination were: Lumbar Spine (L1-L4): There has been worsening of bone density since the previous examination. Left Femur Total: which represents a worsening of 5.5%. Right Femur Total: which represents a worsening of 6.2%. BD/Dexa Bone Density Study IMPRESSION: The patient is considered osteoporotic as outlined below according to World Rei Organization (WHO) criteria with a high fracture risk. There has been worsening of bone density since the previous examination. Reference Information: The T-score is the number of standard deviations above or below the standard which is normal for young adults at their peak bone mineral density. The World Health Organization (WHO) interprets the T-scores as follows: Above -1 Normal bone density Between -1 and -2.5 Osteopenia Equal to / or below -2.5 Osteoporosis As a practical clinical guideline, osteopenia may be graded as follows: Mild -1 through -1.5 Moderate -1.6 through -2.0 Severe -2.1 through -2.4 The Z-score is the number of standard deviations above or below age-matched controls. A Z-score of less than -1.5 would be considered abnormal. References: 1. NIH Osteoporosis and Related Bone Diseases www osteo.org 2. International Society for Clinical Densitometry www iscd.org 3. National Osteoporosis Foundation www nof.org Electronically Signed: David Cox MD at 13:11 EST ,
== END | disposition home or self-care (01) ==
LOC: OPBD 14:55
PROVIDERS: PCP Family Medicine; Referring Provider Family Medicine; Visit Provider Family Medicine
DX: M81.0 Age-related osteoporosis without current pathological fracture (principal)
CPT/HCPCS: 77080

== ENCOUNTER → 2022-12-10 | Outpatient (CLI) | payer MEDICARE, SELFPAY ==
--- NOTE | 2022-12-10 12:37 | STRESSREP_ITS ---
Stress Test Report Date: 12-10-2022 Procedure: Exercise tolerance test/imaging study Indications: Chest pain; CAD; PCI; hyperlipidemia Consent: Per the patient Procedure: The patient exercised on a Samuel protocol for 6 minutes completing Stage II achieving a peak heart rate of 142 bpm (91% predicted maximal heart rate) with resting blood pressure of 110/80 mmHg and a peak blood pressure 162/74 mmHg and a peak MET capacity of 7 METs. The baseline ECG demonstrated normal sinus rhythm. The peak exercise ECG demonstrated no obvious ECG changes. There were no cardiac dysrhythmias pretest, during exercise, or recovery. The functional capacity was considered fair. There was no complaint of chest discomfort during exercise or recovery. The examination was discontinued secondary to hip discomfort and dyspnea. Impression: 1. Technically adequate (percent predicted maximal heart rate greater than 85%) exercise tolerance test 2. Peak exercise ECG with no obvious ECG change 3. There were no cardiac dysrhythmias pretest, during exercise, or recovery 4. Nuclear images pending Myocardial perfusion imaging study: Technique: The patient was injected with 11.6 mCi of technetium 99m Cardiolite and subsequently rest SPECT Cardiolite nuclear imaging was obtained in the horizontal long, vertical long, and short axis views. The patient exercised on a Samuel protocol for 6 minutes completing Stage II achieving a peak heart rate of 142 bpm (91% predicted maximal heart rate) with resting blood pressure of 110/80 mmHg and a peak blood pressure 162/74 mmHg and a peak MET capacity of 7 METs. The patient was injected with 34.9 mCi of technetium 99m Cardiolite and subsequently stress SPECT Cardiolite nuclear imaging was obtained in the horizontal long, vertical long, and short axis views. A gated Cardiolite study at peak stress was obtained. Interpretation: Rest and stress SPECT Cardiolite nuclear imaging status post realignment, normalization, and attenuation correction, demonstrates the appearance of relative uniform tracer uptake and myocardial perfusion appearing within normal limits. There is end systolic thickening and brightening. The gated Cardiolite study demonstrates myocardial thickening and inward wall motion. The reported LVEF is 91%. Impression: 1. Rest and stress SPECT Cardiolite nuclear imaging demonstrate relative uniform tracer uptake and myocardial perfusion appearing within normal limits. 2. The gated Cardiolite study reports an LVEF of 91%. This note was generated with [employer] software. It may contain incorrect words, spelling, and punctuation that were not noted in checking the note before signing.
== END | disposition home or self-care (01) ==
LOC: CVS 06:21
PROVIDERS: PCP Family Medicine; Referring Provider Nurse Practitioner Family; Visit Provider Nurse Practitioner Family
DX: R07.9 Chest pain, unspecified (principal); I25.10 Atherosclerotic heart disease of native coronary artery without angina pectoris; Z95.5 Presence of coronary angioplasty implant and graft
CPT/HCPCS: 78452; 93017; A9500

== ENCOUNTER → 2022-12-14 | Outpatient (CLI) | payer MEDICARE, SELFPAY ==
[2022-12-14 11:59] VITALS: BP 123/74; PULSE 76; RESP 16; TEMP 36.6; O2SAT 93; BMI 29.2
[2022-12-14] MEDS: DENOSUMAB 60 MG/ML SC (12:08)
== END | disposition home or self-care (01) ==
LOC: MEDOUTP 11:52
PROVIDERS: PCP Family Medicine; Referring Provider Family Medicine; Visit Provider Family Medicine
DX: M81.0 Age-related osteoporosis without current pathological fracture (principal)
CPT/HCPCS: 96372; J0897

== ENCOUNTER → 2022-12-20 | Outpatient (CLI) | payer MEDICARE, SELFPAY | END | disposition home or self-care (01) | LOC: SL 19:44 | PROVIDERS: PCP Family Medicine; Referring Provider Family Medicine; Visit Provider Family Medicine | DX: G47.30 Sleep apnea, unspecified (principal) | CPT/HCPCS: 95810 ==

== ENCOUNTER → 2023-01-12 | Outpatient (CLI) | payer MEDICARE, SELFPAY | END | disposition home or self-care (01) | LOC: SL 19:55 | PROVIDERS: PCP Family Medicine; Referring Provider Family Medicine; Visit Provider Family Medicine | DX: G47.33 Obstructive sleep apnea (adult) (pediatric) (principal) | CPT/HCPCS: 95811 ==

== ENCOUNTER → 2023-01-27 | Outpatient (CLI) | payer MEDICARE, SELFPAY | END | disposition home or self-care (01) | LOC: SL 08:48 | PROVIDERS: PCP Family Medicine; Visit Provider Family Medicine | DX: Z00.00 Encounter for general adult medical examination without abnormal findings (principal) ==

== ENCOUNTER 2023-06-13 12:57 | Outpatient (CLI) | payer MEDICARE, SELFPAY ==
[2023-06-13 13:09] VITALS: BP 139/79; PULSE 70; RESP 16; TEMP 36.2; O2SAT 97; BMI 29.2
[2023-06-13] MEDS: DENOSUMAB 60 MG/ML SC (13:12)
== END 2023-06-13 12:58 | disposition home or self-care (01) ==
LOC: MEDOUTP 12:57
PROVIDERS: PCP Family Medicine; Referring Provider Family Medicine; Visit Provider Family Medicine
DX: M81.0 Age-related osteoporosis without current pathological fracture (principal)
CPT/HCPCS: 96372; J0897

== ENCOUNTER → 2023-08-19 | Outpatient (CLI) | payer MEDICARE, SELFPAY ==
[2023-08-19 11:08] LABS: AST(SGOT) 30 U/L (15-37); Alanine Aminotransfer ALT/SGPT 49 U/L (13-56); Albumin, Serum 3.7 g/dL (3.2-5.0); Alkaline Phosphatase 58 U/L (45-117); Bilirubin, Direct 0.23 mg/dL (0.00-0.30); Cholesterol 157 mg/dL (200); Globulin 3.7 g/dL (2.2-4.2); High Density Lipoprotein 46 mg/dL; Protein, Total 7.4 g/dL (6.4-8.2); Triglycerides 163 mg/dL; Very Low Density Lipoprotein 33 mg/dL (5-40)
== END | disposition home or self-care (01) ==
LOC: LAB 09:35
PROVIDERS: PCP Family Medicine; Visit Provider Internal Medicine Cardiovascular Disease
DX: I25.10 Atherosclerotic heart disease of native coronary artery without angina pectoris (principal); E78.00 Pure hypercholesterolemia, unspecified
CPT/HCPCS: 36415; 80061; 80076

== ENCOUNTER → 2023-08-19 | Outpatient (CLI) | payer MEDICARE, SELFPAY ==
--- NOTE | 2023-08-19 09:46 | BI_ITS ---
MAMMOGRAPHY - BILATERAL SCREENING REASON FOR EXAM: Female, 63 years old. Routine annual screening examination. PERTINENT HISTORY: Non-contributory. TECHNIQUE: Digital bilateral breast henny (3D mammographic acquisition) in the CC and MLO projections. 2-D mediolateral oblique (MLO) and craniocaudad (CC) views of both breasts were obtained. CAD: Full Field Digital Mammography with Computer Added Detection was performed. COMPARISON: Comparison is made with prior study dated August 18, 2022 and August 10, 2021. FINDINGS: Breast Composition: There are scattered areas of fibroglandular density. There are no dominant masses or suspicious calcifications. No other significant abnormalities are identified. There has been no significant change since the prior study. BI/SCRN MAMM (CAD)W/HENNY BILAT IMPRESSION: Stable bilateral screening mammogram. Yearly follow-up mammogram recommended. (A) ASSESSMENT CATEGORY: BIRADS Category 1: Negative. A letter regarding these results will be sent to the patient by the facility within 30 days. Approximately 10% of breast cancers are not detected by mammography. A normal mammogram should not delay biopsy of a clinically suspicious abnormality. [id number] Electronically Signed: David Cox MD at 11:15 EDT ,
== END | disposition home or self-care (01) ==
LOC: OPBI 09:43
PROVIDERS: PCP Family Medicine; Referring Provider Family Medicine; Visit Provider Family Medicine
DX: Z12.31 Encounter for screening mammogram for malignant neoplasm of breast (principal)
CPT/HCPCS: 77063; 77067

== ENCOUNTER → 2023-11-07 | Outpatient (CLI) | payer MEDICARE, SELFPAY ==
--- NOTE | 2023-11-07 08:01 | CT_ITS ---
CT LEFT LOWER EXTREMITY WITH 3-D IMAGING CLINICAL INDICATION: OSTEO TECHNIQUE: Axial CT images of the left lower extremity (left hip, knee, and ankle) was performed without IV contrast material. Coronal and sagittal reformats were provided. RADIATION DOSAGE If Supplied By Facility): CTDIvol = 20.03 ) mGy, DLP = ( 2499.88 ) mGycm COMPARISON: None. FINDINGS: Bones: Normal left hip. There is mild pubic symphysis arthrosis. Normal medial, lateral, and patellofemoral left knee compartments. Normal left ankle. Osseous structures are normal without evidence of fracture or dislocation. No lytic or blastic osseous masses. There is no CT evidence of osteomyelitis. Soft Tissues: There is a tiny left knee joint effusion. The deep soft tissue structures are unremarkable. The superficial soft tissues are unremarkable without evidence of edema, hematoma, or foreign body. CT/Extremity Lower without Contra IMPRESSION: Tiny left knee joint effusion. Intact left knee. Electronically Signed: Hollis Tilley MD at 9:21 EST ,
[2023-11-07 09:18] LABS: Absolute Lymphocyte Count 2.57 X10^3/uL (0.83-4.51); Absolute Neutrophil Count 4.5 X10^3/uL (2.0-7.7); Basophil# 0.06 X10^3/uL; Basophil% 0.7 % (0-1); Eosinophil# 0.35 X10^3/uL; Eosinophils% 4.3 % (0-5); Hematocrit 40.4 % (37-47); Hemoglobin 13.1 g/dL (12.0-15.0); Lymphocyte # 2.57 X10^3/ul (0.83-4.51); Lymphocyte % 31.4 % (19-41); Mean Corp Hgb Conc 32.4 g/dL (32-36); Mean Corpuscular Hgb 28.9 pg (27.0-32.0); Mean Platelet Vol. 10.5 fl (6.2-12.0); Monocyte# 0.72 X10^3/uL; Monocyte% 8.8 % (0-10); NRBC Flagged by Analyzer 0 % (0-5); Neutrophil # 4.45 X10^3/uL (2.7-7.7); Neutrophil % 54.3 % (47-70); Platelet Count 348 K/mm3 (150-450); RBC Distribution Width CV 12.3 % (11.6-14.6); RBC Distribution Width SD 40.1 fl (35.1-43.9); Red Blood Count 4.54 M/mm3 (4.2-5.4); White Blood Count 8.2 K/mm3 (4.4-11.0)
[2023-11-07 09:49] LABS: Albumin, Serum 3.5 g/dL (3.2-5.0); Anion Gap 5 (5-15); BUN 11 mg/dL (7-18); BUN/Creat Ratio 10.5 RATIO (10-20); Calcium,Total 9.2 mg/dL (8.5-10.1); Chloride 107 mmol/L (98-107); Creatinine, Serum 1.05 mg/dL (0.55-1.02); EST Glomerular Filtration Rate 56 mL/min (>60); Est Glom Filt Rate - Afr Amer 68 mL/min (>60); Glucose 110 mg/dL (74-106); Potassium 4.1 mmol/L (3.5-5.1); Sodium Level 140 mmol/L (136-145)
== END | disposition home or self-care (01) ==
PROVIDERS: PCP Family Medicine; Referring Provider Specialist; Visit Provider Specialist
DX: Z01.818 Encounter for other preprocedural examination (principal); M17.12 Unilateral primary osteoarthritis, left knee; Z01.810 Encounter for preprocedural cardiovascular examination; E78.00 Pure hypercholesterolemia, unspecified; Z79.899 Other long term (current) drug therapy
CPT/HCPCS: 36415; 73700; 80048; 82040; 85025; 93005

== ENCOUNTER 2023-12-12 12:51 | Outpatient (CLI) | payer MEDICARE, SELFPAY ==
[2023-12-12 13:16] VITALS: BP 132/63; PULSE 77; RESP 14; TEMP 36.4; O2SAT 94
[2023-12-12] MEDS: DENOSUMAB 60 MG/ML SC (13:43)
== END 2023-12-12 12:52 | disposition home or self-care (01) ==
LOC: MEDOUTP 12:52
PROVIDERS: PCP Family Medicine; Referring Provider Family Medicine; Visit Provider Family Medicine
DX: M81.0 Age-related osteoporosis without current pathological fracture (principal)
CPT/HCPCS: 96372; J0897

== ENCOUNTER → 2024-02-09 | Outpatient (CLI) | payer MEDICARE, SELFPAY ==
--- NOTE | 2024-02-09 11:06 | LES_PTH ---
PATIENT: ANTIONE BULLOCK LOC: [facility] U#:[id number] AGE/SX: 63/F ROOM: RE02/09/[address]: Dr. Charlotte Fatima DO : 1960 BED: DIS: 02/09/2024 SPEC #: [id number] RECD: 02/10/24 10:01 STATUS: SHAKEEL DOUG #: [id number] JORGE: 02/09/24 11:[address]: Charlotte Fatima DEPT: SURGICAL PATHOLOGY RECD BY: Oralia Naqvi Tissues: Skin of upper extremity and shoulder Procedures: Surgery Specimen Level IV HEADER OPERATION: Excisional biopsy left anterior shoulder PRE-OP DIAGNOSIS: Squamous cell carcinoma vs Basal cell carcinoma TISSUE SUBMITTED: Left anterior shoulder MICROSCOPIC DIAGNOSIS Skin lesion, left anterior shoulder, biopsy: Skin and soft tissue with ulceration, acute and chronic inflammation and granulation. No evidence of malignancy. AM/mr 02/14/2024 MICROSCOPIC DESCRIPTION Slides are reviewed. GROSS DESCRIPTION Received is one container labeled with the patient's name and not further designated. The specimen consists of an irregular piece of murrell-white skin measuring 0.7 x 0.3 x 0.2cm. The specimen is inked and submitted entirely in one cassette. JOSE/ 02/10/24 TC:2 CPT:57015
== END | disposition home or self-care (01) ==
LOC: BFHLAB 13:31
PROVIDERS: PCP Family Medicine; Referring Provider Family Medicine; Visit Provider Family Medicine
DX: L92.9 Granulomatous disorder of the skin and subcutaneous tissue, unspecified (principal); L98.499 Non-pressure chronic ulcer of skin of other sites with unspecified severity; L08.9 Local infection of the skin and subcutaneous tissue, unspecified
CPT/HCPCS: 88305

== ENCOUNTER 2024-06-12 12:50 | Outpatient (CLI) | payer MEDICARE, SELFPAY ==
[2024-06-12 13:05] VITALS: BP 118/67; PULSE 71; RESP 16; TEMP 35.7; O2SAT 94; BMI 29.8
[2024-06-12] MEDS: DENOSUMAB 60 MG/ML SC (13:35)
== END 2024-06-12 23:59 | disposition home or self-care (01) ==
LOC: MEDOUTP 12:50
PROVIDERS: PCP Family Medicine; Referring Provider Family Medicine; Visit Provider Family Medicine
DX: M81.0 Age-related osteoporosis without current pathological fracture (principal)
CPT/HCPCS: 96372; J0897

== ENCOUNTER → 2024-07-10 | Outpatient (CLI) | payer MEDICARE, SELFPAY ==
[2024-07-10 11:13] LABS: AST(SGOT) 27 U/L (15-37); Alanine Aminotransfer ALT/SGPT 36 U/L (13-56); Albumin, Serum 3.5 g/dL (3.2-5.0); Alkaline Phosphatase 65 U/L (45-117); Cholesterol 164 mg/dL (200); Globulin 3.7 g/dL (2.2-4.2); High Density Lipoprotein 46 mg/dL; Protein, Total 7.2 g/dL (6.4-8.2); Triglycerides 206 mg/dL; Very Low Density Lipoprotein 41 mg/dL (5-40)
== END | disposition home or self-care (01) ==
LOC: LAB 09:39
PROVIDERS: PCP Family Medicine; Referring Provider Nurse Practitioner Family; Visit Provider Nurse Practitioner Family
DX: E78.00 Pure hypercholesterolemia, unspecified (principal); I25.10 Atherosclerotic heart disease of native coronary artery without angina pectoris; Z95.5 Presence of coronary angioplasty implant and graft; E78.1 Pure hyperglyceridemia
CPT/HCPCS: 36415; 80061; 80076

== ENCOUNTER → 2024-08-22 | Outpatient (CLI) | payer MEDICARE, SELFPAY | END | disposition home or self-care (01) | LOC: OPBI 10:44 | PROVIDERS: PCP Family Medicine; Referring Provider Family Medicine; Visit Provider Family Medicine | DX: Z12.31 Encounter for screening mammogram for malignant neoplasm of breast (principal) | CPT/HCPCS: 77063; 77067 ==

== ENCOUNTER 2024-12-07 12:51 | Outpatient (CLI) | payer MEDICARE, SELFPAY ==
[2024-12-07 13:04] VITALS: BP 147/73; PULSE 67; RESP 16; TEMP 35.6; O2SAT 96; BMI 30.5
[2024-12-07] MEDS: DENOSUMAB 60 MG/ML SC (13:05)
== END 2024-12-07 23:59 | disposition home or self-care (01) ==
LOC: MEDOUTP 12:52
PROVIDERS: PCP Family Medicine; Referring Provider Family Medicine; Visit Provider Family Medicine
DX: M81.0 Age-related osteoporosis without current pathological fracture (principal)
CPT/HCPCS: 96372; J0897

== ENCOUNTER → 2024-12-13 | Outpatient (CLI) | payer MEDICARE, SELFPAY ==
--- NOTE | 2024-12-13 12:46 | BD_ITS ---
PROCEDURE: DEXA BONE DENSITY STUDY REASON FOR EXAM: F, age 64 y/o . Postmenopausal. TECHNIQUE: DEXA scan of the lumbar spine and both hips. COMPARISON: Comparison is made with prior study dated November 04, 2022. FINDINGS: Lumbar Spine (L1-L4): g/cm2 (0.811)/T-score (-2.6)/Z-score (-0.6) findings are suggestive of osteoporosis with a high fracture risk. Left Femur Total: g/cm2 (0.847)/T-score (-0.8)/Z-score (0.5) Left Femoral Neck: g/cm2 (0.566)/T-score (-2.6)/Z-score (-0.9) Right Femur Total: g/cm2 (0.824)/T-score (-1.0)/Z-score (0 point) Right Femoral Neck: g/cm2 (0.561)/T-score (-2.6)/Z-score (-1 point) The T-Scores on the most recent prior examination were: Lumbar Spine (L1-L4): There has been improvement of bone density since the previous examination. Left Femur Total: Improvement by 7.1%. Right Femur Total: Improvement by 11.1%. BD/Dexa Bone Density Study IMPRESSION: The patient is considered osteoporotic as outlined below according to World Hea th Organization (WHO) criteria with a high fracture risk. There has been improvement of bone density since the previous e xamination. Reading Location: [facility]
== END | disposition home or self-care (01) ==
LOC: OPBD 12:44
PROVIDERS: PCP Family Medicine; Referring Provider Family Medicine; Visit Provider Family Medicine
DX: M81.0 Age-related osteoporosis without current pathological fracture (principal); Z78.0 Asymptomatic menopausal state
CPT/HCPCS: 77080

== ENCOUNTER 2025-03-26 22:54 | Emergency (ER) | payer MEDICARE, SELFPAY ==
[2025-03-26 22:56] VITALS: BP 152/86; PULSE 76; RESP 16; TEMP 36.8; O2SAT 94; BMI 30.8
[2025-03-26 23:16] VITALS: O2SAT 98
--- NOTE | 2025-03-26 23:16 | EKG12_ITS ---
Test Reason : CP Blood Pressure : */* mmHG Vent. Rate : 77 BPM Atrial Rate : 77 BPM P-R Int : 160 ms QRS Dur : 84 ms QT Int : 388 ms P-R-T Axes : 42 31 41 degrees QTcB Int : 439 ms Normal sinus rhythm Normal ECG Confirmed by Roosevelt Taylor ([id number]), tape editor AARON MARTIN ([id number]) on 03/28/2025 6:56:56 AM Referred By: Confirmed By: Roosevelt Taylor
--- NOTE | 2025-03-26 23:25 | RAD_ITS ---
PROCEDURE: CHEST 1 VIEW (PORTABLE) 03/26/2025 REASON FOR EXAM: CHEST PAIN TECHNIQUE: Frontal view of the chest. COMPARISON: None. FINDINGS: The cardiac silhouette is prominent. The lungs are hypoaerated mildly limiting assessment but clear. No acute osseous abnormalities. RAD/Chest 1 View (Portable) IMPRESSION: No Acute Findings. Reading Location: [place] [id number]
--- NOTE | 2025-03-26 23:28 | EX.ED.DYSGE1 ---
HPI History of Present Illness Chief Complaint: Chest Pain Informant: patient and spouse/S.O. Narrative Narrative: 64-year-old female presenting to the emergency room with chest tightness. Patient states that around 1530 hrs. she was stung by a honeybee on the left foot. She states that she did some topical Benadryl and some ice. She laid down for bed around 20 to 30 hours and felt some tightness in her chest and scratchy throat and is concerned she could possibly be having a allergic reaction. She denies any hives or wheezing. She did not have any other symptomology prior to that other than discomfort on the foot and some mild erythema. Patient has a history of coronary artery disease and has had prior stenting to the LAD and the circumflex. She follows locally with [facility]. [facility] Medical History Hypertriglyceridemia COVID-19 History of subdural hematoma Pure hypercholesterolemia Presence of stent in coronary artery (~01/01/14) Atherosclerotic heart disease of platinum coronary artery without angina pectoris Colon cancer screening Gastro-esophageal reflux disease without esophagitis Chest pain Family history of coronary artery disease Family history of hyperlipidemia Family history of hypertension ASHD (arteriosclerotic heart disease) Home Medications ?Medication ?Instructions ?Recorded ?Last Taken ?Type acetaminophen 325 mg tablet 325 mg PO PRN PRN Pain 03/15/14 01/30/18 History aspirin 81 mg chewable tablet 81 mg PO DAILY 03/18/21 Unknown History buspirone 5 mg tablet 5 mg PO DAILY 04/12/22 Unknown History mcxyevzqihqh-yksovmby-oetwnv tablet 1 tab PO DAILY 12/02/22 Unknown History denosumab 60 mg/mL subcutaneous 60 mg subcut [id number] 07/22/23 Unknown History syringe (Prolia) nitroglycerin 0.4 mg sublingual 0.4 mg sublingual Q5-15M PRN Chest 07/22/23 Unknown Rx tablet Pain #25 tabs amoxicillin 500 mg capsule 2,000 mg PO ONCE PRN dental 07/19/24 Unknown History lorazepam 0.5 mg tablet 0.5 mg PO Q4-6H PRN anxiety 07/19/24 Unknown History omeprazole 40 mg capsule,delayed 40 mg PO QDAY 07/19/24 Unknown History release paroxetine HCl 40 mg tablet 60 mg PO QDAY 07/19/24 Unknown History scopolamine base 1 mg over 3 days 1 patch topical Q3D PRN secretions 07/19/24 Unknown History transdermal patch simvastatin 40 mg tablet See Rx Instructions .Route 10/08/24 Unknown Rx .COMPLEX #90 tabs metoprolol tartrate 25 mg tablet See Rx Instructions .Route 11/12/24 Unknown Rx .COMPLEX #90 tabs Allergy/AdvReac Type Severity Reaction Status Date / Time morphine Allergy Low blood Verified 03/26/25 22:58 pressure naproxen Allergy Nausea Verified 03/26/25 22:58 Family History Mother Diabetes Hypertension Father CAD (coronary artery disease), Onset Age: 49 Brother CAD (coronary artery disease), Onset Age: 59 CABG X4 Other Family history of hyperlipidemia Family history of hypertension Surgical History History of knee replacement procedure of left knee (12/02/23) Presence of coronary angioplasty implant and graft (~01/01/14) History of craniotomy History of hysterectomy History of appendectomy Hx laparoscopic cholecystectomy Social History (Updated 03/26/25 @ 23:46 by Yanet Oreilly) household members: spouse Smoking Status: Never smoker alcohol intake: current alcohol intake frequency: holidays/special occasions only substance use type: does not use caffeine: Yes Type: coffee Number of servings: 1 and tea Number of servings: 1 ROS ROS ED Constitutional Constitutional ED: Denies chills or weight loss Eyes Eyes: Denies change in vision or diplopia ENT ENT ED: Reports other Details: Raspy voice ; Denies ear pain, rhinorrhea or sore throat Cardiovascular Cardiovascular: Reports chest pain; Denies orthopnea, palpitations or racing heartbeat Respiratory/Chest Respiratory/Chest: Denies cough, dyspnea or orthopnea Gastrointestinal Gastrointestinal: Denies abdominal pain, diarrhea, nausea or vomiting Genitourinary Genitourinary ED: Denies dysuria, hematuria or urinary frequency Musculoskeletal Musculoskeletal: Denies arthralgias or myalgias Integumentary Denies abscess or rash Neurologic Neurologic: Denies headache(s) or weakness Psychiatric Psychiatric: Denies anxiety, depression, suicidal ideation or suicidal thoughts Endocrine Endocrinology: Denies polydipsia, polyphagia or polyuria Allergic/Immunologic Allergic/Immunologic ED: Denies mouth swelling, tongue swelling or urticaria EXAM Physical Exam Const Vital Signs: 03/26/25 22:56 03/26/25 23:16 03/26/25 23:45 Temperature 98.2 F Temperature Source Oral Pulse Rate 76 68 Respiratory Rate 16 15 Respiratory Effort Blood Pressure 152/86 H 136/74 H Blood Pressure Mean 108 93 Pulse Ox 94 98 92 Oxygen Delivery Method Room Air Room Air 03/26/25 23:46 03/27/25 01:00 03/27/25 02:00 Temperature Temperature Source Pulse Rate 70 70 Respiratory Rate 18 18 Respiratory Effort Normal Non-Labored Blood Pressure 125/70 H 127/77 H Blood Pressure Mean 88 93 Pulse Ox 98 98 Oxygen Delivery Method 03/27/25 02:50 Temperature 98 F Temperature Source Pulse Rate 80 Respiratory Rate 14 Respiratory Effort Blood Pressure 132/72 H Blood Pressure Mean 92 Pulse Ox 100 Oxygen Delivery Method Positive well nourished and well developed General Appearance ED: well developed HEENT Reports normocephalic, head/scalp atraumatic and moist mucous membranes HEENT Narrative: No stridor. No angioedema. Uvula appears normal. Patient is laying back in secretions normally. Eyes PERRL and EOMs intact bilaterally Neck no lymphadenopathy, supple and no JVD Resp normal respiratory effort and clear to auscultation bilaterally Cardio regular rate, regular rhythm and no murmurs GI normal to inspection, nondistended, normoactive bowel sounds and non-tender Palpation: soft Back/Spine no CVA tenderness and normal ROM Extremity normal to inspection General Extremety ED: Negative for edema General Extremity: Negative for edema Neuro oriented x3 and CN's II-XII intact bilaterally Sensorium / Orientation: alert Motor Exam: strength 5/5 throughout Psych mental status grossly normal Mood & Affect: Negative for depressed or tearful Skin no rashes or lesions noted and no wounds Skin Narrative: No hives are noted. There is no significant erythema at the injection site. I do not appreciate a stinger. MDM MDM MDM Narrative Medical decision making narrative: Differential diagnosis includes acute allergic reaction and anaphylaxis acute coronary syndrome bronchospasm bee sting 2 sets of cardiac enzymes are negative. EKG is nonischemic and appears unchanged from prior. My independent interpretation of the chest x-ray is no acute process. Patient was observed on the monitor send no events. She clinically appears well. Would recommend continued supportive care return if worsening or concerns History & Record Review Discussion w/independent historian: Patient and Significant other Additional record(s) reviewed:: Prior outpatient record, Prior ED visit and Prior labs Lab Data Attestation: I reviewed the patient's lab results. Labs: Laboratory Results - last 24 hr 03/26/25 03/27/25 23:14 01:29 WBC 9.9 RBC 4.61 Hgb 13.9 Hct 40.9 MCV 88.7 MCH 30.2 MCHC 34.0 RDW Std Deviation 41.2 RDW Coeff of Benjamin 12.6 Plt Count 354 MPV 10.3 Immature Gran % (Auto) 0.300 Neut % (Auto) 49.8 Lymph % (Auto) 37.1 [place] % (Auto) 8.4 Eos % (Auto) 3.6 Baso % (Auto) 0.8 Absolute Neuts (auto) 4.9 Absolute Lymphs (auto) 3.68 Nucleated RBC % 0 Sodium 141 Potassium 3.6 Chloride 103 Carbon Dioxide 25.7 Anion Gap 12 BUN 14 Creatinine 1.16 Estim Creat Clear Calc 49.27 L Est GFR (MDRD) Non-Af 52 L BUN/Creatinine Ratio 12.0 Glucose 98 Calcium 9.6 Troponin T High Sens 7 Troponin T Hi Sens 2 Hr 7 Radiography Diagnostic Testing: Clinical Impression(s) from Imaging Studies Chest X-Ray 03/26/25 23:25 IMPRESSION: No Acute Findings. Reading Location: [place] [address] EKG Initial EKG: Attestation: I personally reviewed and interpreted this EKG as follows: Comments: Normal sinus rhythm ventricular rate of 77 bpm Prior EKG tracings: available for review Prior: Unchanged (November 07, 2023) Discharge Plan Triage Chief Complaint: Chest Pain ED Provider: Bobby Tran Dx/Rx/DC Orders Clinical Impression: Chest pain, Bee sting Instructions: ED Chest Pain, Noncardiac Prescriptions: No Action buspirone 5 mg tablet 5 mg PO DAILY [id number]-tdhuyrny-nhxftq Tablet 1 tab PO DAILY Prolia 60 mg/mL syringe 60 mg subcut [id number] omeprazole 40 mg capsule,delayed release(DR/EC) 40 mg PO QDAY paroxetine HCl 40 mg tablet 60 mg PO QDAY lorazepam 0.5 mg tablet 0.5 mg PO Q4-6H PRN (Reason: anxiety) scopolamine base 1 mg over 3 days patch 3 day 1 patch topical Q3D PRN (Reason: secretions) amoxicillin 500 mg capsule 2,000 mg PO ONCE PRN (Reason: dental) Rx Instructions: Prior to dental visits acetaminophen 325 MG tablet 325 mg PO PRN PRN (Reason: Pain) Patient Comments: pain aspirin 81 mg tablet,chewable 81 mg PO DAILY Patient Comments: blood thinner nitroglycerin 0.4 mg tablet, sublingual 0.4 mg SUBLINGUAL Q5-15M PRN (Reason: Chest Pain) Qty: 25 3RF simvastatin 40 mg tablet See Rx Instructions .ROUTE .COMPLEX Qty: 90 3RF Dose Instruction: TAKE 1 TABLET AT BEDTIME Rx Instructions: TAKE 1 TABLET AT BEDTIME metoprolol tartrate 25 mg tablet See Rx Instructions .ROUTE .COMPLEX Qty: 90 3RF Dose Instruction: TAKE ONE-HALF (1/2) TABLET (12.5 MG) TWICE A DAY Rx Instructions: TAKE ONE-HALF (1/2) TABLET (12.5 MG) TWICE A DAY Primary Care Provider: Charlotte Fatima Referrals: Charlotte Fatima DO [Primary Care Provider] - As Needed Print Language: Swedish Disposition Disposition: Home, Self Care Discharge Date/Time: 03/27/25 02:51
[2025-03-26 23:45] VITALS: BP 136/74; PULSE 68; RESP 15; O2SAT 92
[2025-03-26 23:46] LABS: Absolute Lymphocyte Count 3.68 X10^3/uL (0.83-4.51); Absolute Neutrophil Count 4.9 X10^3/uL (2.0-7.7); Basophil# 0.08 X10^3/uL; Basophil% 0.8 % (0-1); Eosinophil# 0.36 X10^3/uL; Eosinophils% 3.6 % (0-5); Hematocrit 40.9 % (37-47); Hemoglobin 13.9 g/dL (12.0-15.0); Lymphocyte # 3.68 X10^3/ul (0.83-4.51); Lymphocyte % 37.1 % (19-41); Mean Corpuscular Hgb 30.2 pg (27.0-32.0); Mean Corpuscular Volume 88.7 fL (81-99); Mean Platelet Vol. 10.3 fl (6.2-12.0); Monocyte# 0.83 X10^3/uL; Monocyte% 8.4 % (0-10); NRBC Flagged by Analyzer 0 % (0-5); Neutrophil # 4.94 X10^3/uL (2.7-7.7); Neutrophil % 49.8 % (47-70); Platelet Count 354 K/mm3 (150-450); RBC Distribution Width CV 12.6 % (11.6-14.6); RBC Distribution Width SD 41.2 fl (35.1-43.9); Red Blood Count 4.61 M/mm3 (4.2-5.4); White Blood Count 9.9 K/mm3 (4.4-11.0)
[2025-03-26 23:59] LABS: Anion Gap 12 (5-15); BUN 14 mg/dL (4-19); Calcium,Total 9.6 mg/dL (7.6-11.0); Carbon Dioxide 25.7 mmol/L (21.0-32.0); Chloride 103 mmol/L (98-108); Creatinine, Serum 1.16 mg/dL (0.70-1.20); EST Glomerular Filtration Rate 52 (>60); Estimated Creatinine Clearance 49.27 ml/min (50-250); Glucose 98 mg/dL (70-99); Potassium 3.6 mmol/L (3.3-5.1); Sodium Level 141 mmol/L (133-145); Troponin T High Sensitivity 7 ng/L (<=14)
[2025-03-27 01:00] VITALS: BP 125/70; PULSE 70; RESP 18; O2SAT 98
[2025-03-27 02:00] VITALS: BP 127/77; PULSE 70; RESP 18; O2SAT 98
[2025-03-27 02:23] LABS: Troponin T High Sens 2 HR 7 ng/L (<=14)
[2025-03-27 02:50] VITALS: BP 132/72; PULSE 80; RESP 14; TEMP 36.6; O2SAT 100
== END 2025-03-27 02:51 | disposition home or self-care (01) ==
PROVIDERS: Emergency Provider Emergency Medicine; PCP Family Medicine; Visit Provider Emergency Medicine
DX: R07.89 Other chest pain (principal); T63.441A Toxic effect of venom of bees, accidental (unintentional), initial encounter; I25.10 Atherosclerotic heart disease of native coronary artery without angina pectoris; E78.00 Pure hypercholesterolemia, unspecified; Z95.5 Presence of coronary angioplasty implant and graft; Z79.82 Long term (current) use of aspirin; Z79.899 Other long term (current) drug therapy; Z86.16 Personal history of COVID-19
CPT/HCPCS: 71045; 80048; 84484; 85025; 93005; 99284; A4216

== ENCOUNTER → 2025-05-14 | Outpatient (CLI) | payer MEDICARE, SELFPAY ==
--- NOTE | 2025-05-14 09:59 | MRI_ITS ---
EXAM: BRAIN W/WO CONTRAST CLINICAL HISTORY: RIGHT ARM WEAKNESS, NUMBNESS, DYSARTHRIA COMPARISON: December 28, 2018 TECHNIQUE: Multiplanar, multisequence MR images of the brain were obtained without and with 16 cc Clariscan gadolinium contrast material. FINDINGS: Craniotomy changes are noted on the right with minimal metallic artifact, similar to the prior. No intracranial hemorrhage, mass, mass effect, midline shift or pathologic extra- axial fluid collection. No hydrocephalus. Preservation of the cordova- white parenchymal differentiation. No areas of restricted diffusion to suggest acute ischemia or infarction. No gradient signal blooming artifacts are identified. No cerebellar tonsillar ectopia. No sellar/suprasellar signal abnormalities. The ocular globes and intraorbital soft tissues are symmetrically unremarkable. Paranasal sinuses are essentially clear. There are no suspicious enhancing lesions. MRI/Brain W/WO Contrast IMPRESSION: Craniotomy changes are noted on the right with minimal metallic artifact, simil ar to the prior. No acute abnormality or suspicious enhancing lesion is identified in the brain. Reading Location: [facility]
--- NOTE | 2025-05-14 09:59 | MRI_ITS ---
EXAM: BRAIN W/WO CONTRAST CLINICAL HISTORY: RIGHT ARM WEAKNESS, NUMBNESS, DYSARTHRIA COMPARISON: December 28, 2018 TECHNIQUE: Multiplanar, multisequence MR images of the brain were obtained without and with 16 cc Clariscan gadolinium contrast material. FINDINGS: Craniotomy changes are noted on the right with minimal metallic artifact, similar to the prior. No intracranial hemorrhage, mass, mass effect, midline shift or pathologic extra- axial fluid collection. No hydrocephalus. Preservation of the cordova- white parenchymal differentiation. No areas of restricted diffusion to suggest acute ischemia or infarction. No gradient signal blooming artifacts are identified. No cerebellar tonsillar ectopia. No sellar/suprasellar signal abnormalities. The ocular globes and intraorbital soft tissues are symmetrically unremarkable. Paranasal sinuses are essentially clear. There are no suspicious enhancing lesions. MRI/Brain W/WO Contrast IMPRESSION: Craniotomy changes are noted on the right with minimal metallic artifact, simil ar to the prior. No acute abnormality or suspicious enhancing lesion is identified in the brain. Reading Location: [facility]
== END | disposition home or self-care (01) ==
PROVIDERS: PCP Family Medicine; Referring Provider Family Medicine; Visit Provider Family Medicine
DX: R47.1 Dysarthria and anarthria (principal); R29.898 Other symptoms and signs involving the musculoskeletal system; R20.0 Anesthesia of skin
CPT/HCPCS: 70553; A9575

== ENCOUNTER → 2025-06-03 | Outpatient (CLI) | payer MEDICARE, SELFPAY ==
--- NOTE | 2025-06-03 16:52 | MRI_ITS ---
PROCEDURE: MRA HEAD ONLY WITHOUT CONTRAST 06/03/2025 REASON FOR EXAM: RIGHT ARM WEAKNESS, NUMBNESS,DYSARTHRITIS, R/O ANEURYSM TECHNIQUE: MRA HEAD ONLY WITHOUT CONTRAST Multiplanar multisequential imaging was performed without IV contrast administration. FINDINGS: Distal vertebral arteries patent. No basilar stenosis. Patent basilar tip. Left and right STRIP MILL [employer]ATOR are patent. Normal caliber of the distal cervical internal carotid arteries. Normal petrous, precavernous and cavernous internal carotid arteries. Patent left and right A1 and A2 segments. Negative for intracranial aneurysm. No left or right MCA branch occlusion. MRI/MRA Head ONLY without Contrast IMPRESSION: MR a of the head is within normal limits. Reading Location: [facility]
--- OUTSIDE RECORDS SUMMARY | 2025-06-03 23:54 | XMS RPT_ITS | CCD ---
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 been improvement of bone density since the previous examination. Left Femur Total: Improvement by 7.1%. Right Femur Total: Improvement by 11.1%. BD/Dexa Bone Density Study IMPRESSION: The patient is considered osteoporotic as outlined below according to World Rei Organization (WHO) criteria with a high fracture risk. There has been improvement of bone density since the previous examination. Reading Location: [id number] CC: Dr. Charlotte Fatima DO Tele Rn: Signed Normal [facility] SCRN MAMM (CAD)W/HENNY BILATo n 08-22-2024 SCRN MAMM (CAD)W/HENNY BILAT [facility] [address], [place] [id number] SCRN MAMM (CAD)W/HENNY BILAT MR#: [id number] Acct: [id number] Name: ANTIONE BROWER Rep #: [id number] : 1960 F 64 From: David fernandez MD PCP: Dr. Charlotte Fatima DO Status: REG CLI Study: SCRN MAMM (CAD)W/HENNY BILAT Date of Exam: 04/09 Exam# [id number] Ordering Dr: Charlotte Fatima DO [id number] MAMMOGRAPHY - BILATERAL SCREENING REASON FOR EXAM: Female, 64 years old. Routine annual screening examination. PERTINENT HISTORY: Non-contributory. TECHNIQUE: Digital bilateral breast henny (3D mammographic acquisition) in the CC and MLO projections. 2-D mediolateral oblique (MLO) and craniocaudad (CC) views of both breasts were obtained. CAD: Full Field Digital Mammography with Computer Added Detection was performed. COMPARISON: Comparison is made with prior study dated August 19, 2023 and August 18, 2022. FINDINGS: Breast Composition: There are scattered areas of fibroglandular density. There are no dominant masses or suspicious calcifications. No other significant abnormalities are identified. There has been no significant change since the prior study. BI/SCRN MAMM (CAD)W/HENNY BILAT IMPRESSION: Stable bilateral screening mammogram. Yearly follow-up mammogram recommended. (A) ASSESSMENT CATEGORY: BIRADS Category 1: Negative. A letter regarding these results will be sent to the patient by the facility within 30 days. Approximately 10% of breast cancers are not detected by mammography. A normal mammogram should not delay biopsy of a clinically suspicious abnormality. [id number] Electronically Signed: David Cox MD at 12:30 EST Reading Location ID and State: [facility] / [place] , Service support , CC: Dr. Charlotte Fatima DO Tele Rn: Signed Normal [facility] Cardiology Visit Reporton Cardiology Visit Report [facility] [place] [address] OFFICE VISIT Date of Service: 07/19/24 MR#: [id number] Acct: [id number] Name: ANTIONE BROWER Rep #: [id number] : 1960 Provider: GUERLINE mccabe Age/Sex: 64/F Location: [facility] Status: Signed HPI HPI History of Present Illness Details: ANTIONE BROWER, is a 64-year-old white female who presents to the office today for outpatient cardiovascular follow up of her history of underlying CAD/PCI superimposed upon hyperlipidemia. She as you member underwent cardiac catheterization which demonstrated preserved ejection fraction and multivessel coronary disease but with no evidence of high-grade stenosis. The stent in the LAD, circumflex artery, and right coronary artery with patent. She did have a stress test in November of this year where she exercised 7 metabolic equivalents without any angina. She states occasional/rare palpitations. This is unchanged. She denies bilateral lower extremity edema. She denies claudication. She denies shortness of breath at rest, orthopnea, or PND. She denies chronic cough. She denies significant, sudden weight gain. She denies lightheadedness, dizziness, near-syncope, or syncope. She denies blood in urine, blood in stool, or epistaxis. He denies fever or chills. She denies myalgia. She denies fatigue. Her exercise level has remained stable. 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 Receptionist Required: No Accompanied by: Is patient in pain?: No Allergies morphine Allergy (Verified 07/19/24 10:30) Low blood pressure naproxen Allergy (Verified 07/19/24 10:30) Nausea Medications ???Medication ???Instructions ???Recorded ???Confirmed ???Type acetaminophen 325 mg tablet 325 mg PO PRN PRN Pain 03/15/14 07/19/24 History aspirin 81 mg chewable tablet 81 mg PO DAILY 03/18/21 07/19/24 History buspirone 5 mg tablet 5 mg PO DAILY 04/12/22 07/19/24 History ydvvkpiesvgt-qdphocjo-nogdac tablet 1 tab PO DAILY 12/02/22 07/19/24 History denosumab 60 mg/mL subcutaneous 60 mg subcut [id number] 07/22/23 07/19/24 History syringe (Prolia) nitroglycerin 0.4 mg sublingual 0.4 mg sublingual Q5-15M PRN Chest 07/22/23 07/19/24 Rx tablet Pain #25 tabs metoprolol tartrate 25 mg tablet See Rx Instructions .Route 10/14/23 07/19/24 Rx .COMPLEX #90 tabs simvastatin 40 mg tablet See Rx Instructions .Route 10/14/23 07/19/24 Rx .COMPLEX #90 tabs amoxicillin 500 mg capsule 2,000 mg PO ONCE PRN 07/19/24 07/19/24 History lorazepam 0.5 mg tablet 0.5 mg PO Q4-6H PRN anxiety 07/19/24 07/19/24 History omeprazole 40 mg capsule,delayed 40 mg PO QDAY 07/19/24 07/19/24 History release paroxetine HCl 40 mg tablet 60 mg PO QDAY 07/19/24 07/19/24 History scopolamine base 1 mg over 3 days 1 patch topical Q3D PRN 07/19/24 07/19/24 History transdermal patch Ejection fraction %: 60 Have you fallen in the past year?: No PFSH Medical History Hypertriglyceridemia COVID-19 History of subdural hematoma Pure hypercholesterolemia Presence of stent in coronary artery ( 01/01/14) Atherosclerotic heart disease of [place] coronary artery without angina pectoris Colon cancer screening Gastro-esophageal reflux disease without esophagitis Chest pain Family history of coronary artery disease Family history of hyperlipidemia Family history of hypertension ASHD (arteriosclerotic heart disease) Surgical History History of knee replacement procedure of left knee (12/02/23) Presence of coronary angioplasty implant and graft ( 01/01/14) History of craniotomy History of hysterectomy History of appendectomy Hx laparoscopic cholecystectomy Family History Mother Diabetes Hypertension Father CAD (coronary artery disease), Onset Age: 49 Brother CAD (coronary artery disease), Onset Age: 59 CABG X4 Other Family history of hyperlipidemia Family history of hypertension Social History (Updated 07/19/24 @ 10:35 by Shannan Brock) Smoking Status: Never smoker alcohol intake: current alcohol intake frequency: holidays/special occasions only substance use type: does not use caffeine: Yes Type: coffee Number of servings: 1 and tea Number of servings: 1 ROS Const Const: Positive for other (Decreased energy); Negative for fatigue or weakness Eyes Eyes: Negative for change in vision ENT ENT: Negative for dizziness, Nosebleed/epistaxis or balance (more content not included)... Normal [facility] Lipid Profileon 07-10-2024 Cholesterol [Mass/Vol] 164 mg/dL Normal 200 [facility] Comment on above: Result Comment: <200 mg/dL Desirable 200-240 mg/dL Borderline >240 mg/dL High Risk Performed By: #### L 500.3400, L500.4100 ####[facility] [id number] [place], [address] Cholesterol in HDL [Mass/Vol] 46 mg/dL Normal [facility] Comment on above: Result Comment: The drugs N-Acetylcysteine and Metamizole may falsely depress this assay. Reference Range HDL <40 mg/dL Low HDL Cholesterol HDL >or= 60 mg/dL High HDL Cholesterol Performed By: #### L 500.3400, L500.4100 ####[facility] [address] [place], [address] Cholesterol in LDL [Mass/Vol] 77 mg/dL Normal 0-130 [facility] Comment on above: Performed By: #### L 500.3400, L500.4100 ####[facility] [address] [place], [address] Cholesterol in VLDL [Mass/Vol] 41 mg/dL High 5-40 [facility] Comment on above: Performed By: #### L 500.3400, L500.4100 ####[facility] [address] [place], [address] Triglyceride [Mass/Vol] 206 mg/dL High [facility] Comment on above: Result Comment: The drugs N-Acetylcysteine and Metamizole may falsely depress this assay. Serum Triglycerides Reference Interval Normal <150 mg/dL Borderline high 150 - 199 mg/dL High 200 - 499 mg/dL Very High > or = 500 mg/dL Performed By: #### L 500.3400, L500.4100 ####[facility] [address] [place], [address] Liver Profileon 07-10-2024 Albumin [Mass/Vol] 3.5 g/dL Normal 3.2-5.0 [facility] Comment on above: Performed By: #### L 500.3400, L500.4100 ####[facility] [address] [place], [address] ALK P 65 U/L Normal 45-117 [facility] Comment on above: Performed By: #### L 500.3400, L500.4100 ####[facility] [address] [place], [address] ALT [Catalytic activity/Vol] 36 U/L Normal 13-56 [facility] Comment on above: Performed By: #### L 500.3400, L500.4100 ####[facility] [address] [place], [address] AST [Catalytic activity/Vol] 27 U/L Normal 15-37 [facility] Comment on above: Performed By: #### L 500.3400, L500.4100 ####[facility] [address] [place], [address] Bilirubin [Mass/Vol] 0.90 mg/dL Normal 0.20-1.00 [facility] Comment on above: Result Comment: For patients on eltrombopag therapy, use of Dimension [place] TBIL is not recommended. Performed By: #### L 500.3400, L500.4100 ####[facility] [address] [place], [address] Bilirubin.direct [Mass/Vol] 0.20 mg/dL Normal 0.00-0.30 [facility] Comment on above: Performed By: #### L 500.3400, L500.4100 ####[facility] [address] [place], [address] Globulin (S) [Mass/Vol] 3.7 g/dL Normal 2.2-4.2 [facility] Comment on above: Performed By: #### L 500.3400, L500.4100 ####[facility] [address] [place], [address] T PROT 7.2 g/dL Normal 6.4-8.2 [facility] Comment on above: Performed By: #### L 500.3400, L500.4100 ####[facility] [address] [place], [address] Absolute lymphocyte countOrd ered By: Solis Jung on 11-07-2023 Lymphocytes Auto (Unsp spec) [#/Vol] 2.57 10*3/uL 0.83-4.51 [facility] Automated lymphocyte count a s percentage of total leukocytesOrdered By: Solis Jung on 11-07-2023 Lymphocytes/100 WBC Auto (Unsp spec) 31.4 % 19-41 [facility] Basophil percentageOrdered B y: Solis Jung on 11-07-2023 Basophils/100 WBC (Bld) 0.7 % 0-1 [facility] Chloride [Moles/Vol] 107 mmol/L 98-107 [facility] Eosinophils/100 WBC (Bld) 4.3 % 0-5 [facility] Glucose [Mass/Vol] 110 mg/dL 74-106 [facility] Comment on above: Fasting Glucose resu lt from 100 to 125 mg/dL suggests IMPAIRED HOMEOSTASIS per A.D.A. criteria. Hemoglobin (Bld) [Mass/Vol] 13.1 g/dL 12.0-15.0 [facility] Monocytes/100 WBC (Bld) 8.8 % 0-10 [facility] Neutrophils (Bld) [#/Vol] 4.5 10*3/uL 2.0-7.7 [facility] Neutrophils/100 WBC (Bld) 54.3 % 47-70 [facility] Potassium [Moles/Vol] 4.1 mmol/L 3.5-5.1 [facility] Sodium [Moles/Vol] 140 mmol/L 136-145 [facility] WBC (Bld) [#/Vol] 8.2 10*3/uL 4.4-11.0 [facility] Determination of erythrocyte mean corpuscular volume (MCV)Ordered By: Solis Jung on 11-07-2023 MCV (RBC) [Entitic vol] 89.0 fL 81-99 [facility] Erythrocyte distribution wid th ratioOrdered By: Solis Jung on 11-07-2023 Erythrocyte distribution width (RBC) [Ratio] 12.3 % 11.6-14.6 [facility] Erythrocyte distribution wid th standard deviationOrdered By: Solis Jung on 11-07-2023 Erythrocyte distribution width (RBC) [Entitic vol] 40.1 fL 35.1-43.9 [facility] Hematocrit Auto (Bld) [Volum e fraction]Ordered By: Solis Jung on 11-07-2023 Hematocrit (Bld) [Volume fraction] 40.4 % 37-47 [facility] Immature granulocytes/100 WB C Auto (Bld)Ordered By: Solis Jung on 11-07-2023 Immature granulocytes/100 WBC (Bld) 0.500 % 0.0-0.9 [facility] Comment on above: IG% - Immature Granu locytes (promyelocytes, myelocytes and metamyelocytes) > 1% indicates that a LEFT SHIFT is Present. Laboratory - Chemistry and C hemistry - challengeOrdered By: Solis Jung on 11-07-2023 CO2 [Moles/Vol] 28.0 mmol/L 21.0-32.0 [facility] Urea nitrogen/Creatinine [Mass ratio] 10.5 mg/mg 10-20 [facility] Laboratory - Hematology and Cell countsOrdered By: Solis Jung on 11-07-2023 MCH (RBC) [Entitic mass] 28.9 pg 27.0-32.0 [facility] MCHC (RBC) [Mass/Vol] 32.4 g/dL 32-36 [facility] Nucleated RBC/100 WBC (Bld) [Ratio] 0 % 0-5 [facility] Platelets (Bld) [#/Vol] 348 10*3/uL 150-450 [facility] No Panel InformationOrdered By: Solis Jung on 11-07-2023 Estimated GFR (MDRD) Amer 68 mL/min >60 [facility] Comment on above: GFR Calc Estimated GFR (MDRD) Non-Af Amer 56 mL/min >60 [facility] Comment on above: Non- GFR Calc Platelet mean volume Sean-Ec ker (Bld) [Entitic vol]Ordered By: Solis Jung on 11-07-2023 Platelet mean volume (Bld) [Entitic vol] 10.5 fL 6.2-12.0 [facility] RBC Auto (Bld) [#/Vol]Ordere d By: Solis Jung on 11-07-2023 RBC (Bld) [#/Vol] 4.54 10*6/uL 4.2-5.4 [facility] Serum or plasma calcium curt urement (mass/volume)Ordered By: Solis Jung on 11-07-2023 Calcium [Mass/Vol] 9.2 mg/dL 8.5-10.1 [facility] Serum or plasma creatinine m easurement (mass/volume)Ordered By: Solis Jung on 11-07-2023 Creatinine [Mass/Vol] 1.05 mg/dL 0.55-1.02 [facility] Comment on above: The validity of the calculated GFR & GFRAA in patients over 70 years has not been determined. Clinical correlation is essential. Serum or plasma urea nitroge n measurement (mass/volume)Ordered By: Solis Jung on 11-07-2023 Urea nitrogen [Mass/Vol] 11 mg/dL 7-18 [facility] Thin prep Papanicolaou smear with manual screeningOrdered By: Solis Jung on 11-07-2023 Thin prep Papanicolaou smear with manual screening 3.5 g/dL 3.2-5.0 [facility] Thin prep Papanicolaou smear with manual screening 5 5-15 [facility] Basophil percentageOrdered B y: Fede Andre on 08-19-2023 Bilirubin [Mass/Vol] 0.90 mg/dL 0.20-1.00 [facility] Comment on above: For patients on eltr ombopag therapy, use of Dimension [place] TBIL is not recommended. Cholesterol [Mass/Vol] 157 mg/dL <200 [facility] Comment on above: <200 mg/dL Desirable 200-240 mg/dL Borderline >240 mg/dL High Risk Protein [Mass/Vol] 7.4 g/dL 6.4-8.2 [facility] Triglyceride [Mass/Vol] 163 mg/dL <199 [facility] Comment on above: The drugs N-Acetylcy steine and Metamizole may falsely depress this assay.Serum Triglycerides Reference Interval Normal <150 mg/dL Borderline high 150 - 199 mg/dL High 200 - 499 mg/dL Very High > or = 500 mg/dL Direct bilirubinOrdered By: Fede Andre on 08-19-2023 Bilirubin.direct [Mass/Vol] 0.23 mg/dL 0.00-0.30 [facility] Laboratory - Chemistry and C hemistry - challengeOrdered By: Fede Andre on 08-19-2023 ALP [Catalytic activity/Vol] 58 U/L 45-117 [facility] ALT [Catalytic activity/Vol] 49 U/L 13-56 [facility] Globulin (S) [Mass/Vol] 3.7 g/dL 2.2-4.2 [facility] Serum or plasma albumin curt urement (mass/volume)Ordered By: Fede Andre on 08-19-2023 Albumin [Mass/Vol] 3.7 g/dL 3.2-5.0 [facility] Serum or plasma cholesterol in HDL measurement (mass/volume)Ordered By: Fede Andre on 08-19-2023 Cholesterol in HDL [Mass/Vol] 46 mg/dL >40 [facility] Comment on above: The drugs N-Acetylcy steine and Metamizole may falsely depress this assay. Reference Range HDL <40 mg/dL Low HDL Cholesterol HDL >or= 60 mg/dL High HDL Cholesterol Serum or plasma cholesterol in VLDL measurement (mass/volume)Ordered By: Fede Andre on 08-19-2023 Cholesterol in VLDL [Mass/Vol] 33 mg/dL 5-40 [facility] Serum or plasma low density lipoprotein (LDL) cholesterol measurement (mass/volume)Ordered By: Fede Andre on 08-19-2023 Cholesterol in LDL [Mass/Vol] 78 mg/dL 0-130 [facility] Thin prep Papanicolaou smear with manual screeningOrdered By: Fede Andre on 08-19-2023 Thin prep Papanicolaou smear with manual screening 30 U/L 15-37 [facility] Absolute lymphocyte countOrd ered By: Dr. Fatima on 10-20-2022 Lymphocytes Auto (Unsp spec) [#/Vol] 2.48 10*3/uL 0.83-4.51 [facility] Basophil percentageOrdered B y: Dr. Fatima on 10-20-2022 Basophils/100 WBC (Bld) 1.0 % 0-1 [facility] Bilirubin [Mass/Vol] 0.60 mg/dL 0.20-1.00 [facility] Comment on above: For patients on eltr ombopag therapy, use of Dimension [place] TBIL is not recommended. Chloride [Moles/Vol] 106 mmol/L 98-107 [facility] Eosinophils/100 WBC (Bld) 3.3 % 0-5 [facility] Glucose [Mass/Vol] 113 mg/dL 74-106 [facility] Comment on above: Fasting Glucose resu lt from 100 to 125 mg/dL suggests IMPAIRED HOMEOSTASIS per A.D.A. criteria. Neutrophils (Bld) [#/Vol] 4.7 10*3/uL 2.0-7.7 [facility] Neutrophils/100 WBC (Bld) 56.9 % 47-70 [facility] Potassium [Moles/Vol] 4.4 mmol/L 3.5-5.1 [facility] Protein [Mass/Vol] 8.0 g/dL 6.4-8.2 [facility] Sodium [Moles/Vol] 139 mmol/L 136-145 [facility] WBC (Bld) [#/Vol] 8.2 10*3/uL 4.4-11.0 [facility] Blood erythrocytes count (nu mber/volume)Ordered By: Dr. Fatima on 10-20-2022 RBC (Bld) [#/Vol] 4.90 10*6/uL 4.2-5.4 [facility] Blood hemoglobin measurement (mass/volume)Ordered By: Dr. Fatima on 10-20-2022 Hemoglobin (Bld) [Mass/Vol] 14.3 g/dL 12.0-15.0 [facility] Blood lymphocytes/100 leukoc ytesOrdered By: Dr. Fatima on 10-20-2022 Lymphocytes/100 WBC (Bld) 30.4 % 19-41 [facility] Blood monocytes/100 leukocyt esOrdered By: Dr. Fatima on 10-20-2022 Monocytes/100 WBC (Bld) 8.0 % 0-10 [facility] Blood platelet mean volumeOr dered By: Dr. Fatima on 10-20-2022 Platelet mean volume (Bld) [Entitic vol] 10.6 fL 6.2-12.0 [facility] Determination of erythrocyte mean corpuscular volume (MCV)Ordered By: Dr. Fatima on 10-20-2022 MCV (RBC) [Entitic vol] 88.0 fL 81-99 [facility] Hematocrit Auto (Bld) [Volum e fraction]Ordered By: Dr. Fatima on 10-20-2022 Hematocrit (Bld) [Volume fraction] 43.1 % 37-47 [facility] Iron measurement (mass/mass) Ordered By: Dr. Fatima on 10-20-2022 Iron (Unsp spec) [Mass/Mass] 55 ug/dL 50-170 [facility] Laboratory - Chemistry and C hemistry - challengeOrdered By: Dr. Fatima on 10-20-2022 ALP [Catalytic activity/Vol] 76 U/L 45-117 [facility] ALT [Catalytic activity/Vol] 31 U/L 13-56 [facility] CO2 [Moles/Vol] 27.0 mmol/L 21.0-32.0 [facility] Cobalamin (Vitamin B12) [Mass/Vol] 228 pg/mL 211-911 [facility] Globulin (S) [Mass/Vol] 4.1 g/dL 2.2-4.2 [facility] Magnesium [Mass/Vol] 2.1 mg/dL 1.6-2.6 [facility] Urea nitrogen/Creatinine [Mass ratio] 11.6 mg/mg 10-20 [facility] Laboratory - Hematology and Cell countsOrdered By: Dr. Fatima on 10-20-2022 Erythrocyte distribution width (RBC) [Entitic vol] 41.5 fL 35.1-43.9 [facility] Erythrocyte distribution width (RBC) [Ratio] 12.8 % 11.6-14.6 [facility] Immature granulocytes/100 WBC (Bld) 0.400 % 0.0-0.9 [facility] Comment on above: IG% - Immature Granu locytes (promyelocytes, myelocytes and metamyelocytes) > 1% indicates that a LEFT SHIFT is Present. MCH (RBC) [Entitic mass] 29.2 pg 27.0-32.0 [facility] Nucleated RBC/100 WBC (Bld) [Ratio] 0 % 0-5 [facility] [facility] MCHC Auto (RBC) [Mass/Vol]Or dered By: Dr. Fatima on 10-20-2022 MCHC (RBC) [Mass/Vol] 33.2 g/dL 32-36 [facility] No Panel InformationOrdered By: Dr. Fatima on 10-20-2022 Estimated GFR (MDRD) Amer 58 mL/min >60 [facility] Comment on above: GFR Calc Estimated GFR (MDRD) Non-Af Amer 48 mL/min >60 [facility] Comment on above: Non- GFR Calc Platelets bldOrdered By: Dr. Fatima on 10-20-2022 Platelets (Bld) [#/Vol] 383 10*3/uL 150-450 [facility] Serum or plasma albumin curt urement (mass/volume)Ordered By: Dr. Fatima on 10-20-2022 Albumin [Mass/Vol] 3.9 g/dL 3.2-5.0 [facility] Serum or plasma albumin/glob ulin mass ratioOrdered By: Dr. Fatima on 10-20-2022 Albumin/Globulin [Mass ratio] 1.0 {ratio} 0.9-2.4 [facility] Serum or plasma calcium curt urement (mass/volume)Ordered By: Dr. Fatima on 10-20-2022 Calcium [Mass/Vol] 9.2 mg/dL 8.5-10.1 [facility] Serum or plasma creatinine m easurement (mass/volume)Ordered By: Dr. Fatima on 10-20-2022 Creatinine [Mass/Vol] 1.21 mg/dL 0.55-1.02 [facility] Comment on above: The validity of the calculated GFR & GFRAA in patients over 70 years has not been determined. Clinical correlation is essential. Serum or plasma ferritin radha surement (mass/volume)Ordered By: Dr. Fatima on 10-20-2022 Ferritin [Mass/Vol] 25 ng/mL 8-252 [facility] Serum or plasma urea nitroge n measurement (mass/volume)Ordered By: Dr. Fatima on 10-20-2022 Urea nitrogen [Mass/Vol] 14 mg/dL 7-18 [facility] Thin prep Papanicolaou smear with manual screeningOrdered By: Dr. Fatima on 10-20-2022 Thin prep Papanicolaou smear with manual screening 20 U/L 15-37 [facility] Thin prep Papanicolaou smear with manual screening 6 5-15 [facility] APTTon 10-17-2020 aPTT Coag (Bld) [Time] 26.7 s Normal 25.4 - 38.4 [facility] Comment on above: Performed By: #### 2 [id number] #### [facility],[address] [place] [address] 68031 C-REACTIVE PROTEINon 021 CRP [Mass/Vol] mg/L Normal 0.00 - 0.90 [facility] Comment on above: Performed By: #### 2 54383 #### [facility],[address] [place] [address] 41578 CBC + DIFFon 10-17-2020 Basophils (Bld) [#/Vol] 0.00 x10EE3/UL Normal 0.00 - 0.10 [facility] Comment on above: Performed By: #### 2 72277 #### [facility],[address] [place] [address] 88967 Basophils/100 WBC (Bld) 0.2 % Normal 0.0 - 2.0 [facility] Comment on above: Performed By: #### 2 02499 #### [facility],[address] [place] [address] 98123 CBC + DIFF Normal [facility] Comment on above: Result Comment: CBC- COMPLETE BLOOD COUNT Performed By: #### 2 54440 #### [facility],[address] [place] [address] 77895 Eosinophils (Bld) [#/Vol] 0.00 x10EE3/UL Normal 0.00 - 0.50 [facility] Comment on above: Performed By: #### 2 89361 #### [facility],[address] [place] [address] 99932 Eosinophils/100 WBC (Bld) 0.0 % Normal 0.0 - 7.0 [facility] Comment on above: Performed By: #### 2 09745 #### [facility],[address] [place], [place] [id number] Erythrocyte distribution width (RBC) [Ratio] 13.4 % Normal 12.0 - 15.6 [facility] Comment on above: Performed By: #### 2 44572 #### [facility],[address] [place] [address] Hematocrit (Bld) [Volume fraction] 45.1 % Normal 34.0 - 46.0 [facility] Comment on above: Performed By: #### 2 84932 #### [facility],[address] [place] [address] Hemoglobin (Bld) [Mass/Vol] 14.9 g/dL Normal 12.0 - 16.0 [facility] Comment on above: Performed By: #### 2 46422 #### [place] [id number] Lymphocytes (Bld) [#/Vol] 3.10 x10EE3/UL High 0.80 - 2.80 [facility] Comment on above: Performed By: #### 2 45633 #### [facility],[address] [place], [place] [phone] Lymphocytes/100 WBC (Bld) 34.2 % Normal 20.0 - 45.0 [facility] Comment on above: Performed By: #### 2 52506 #### [facility],[address] [place], [place] [phone] MANUAL DIFF N/A Normal [facility] Comment on above: Performed By: #### 2 04818 #### [facility],[address] [place], [place] [phone] MCH (RBC) [Entitic mass] 29 pg Normal 27 - 33 [facility] Comment on above: Performed By: #### 2 59576 #### [facility],[address],[place] [address] MCHC (RBC) [Mass/Vol] 33 X10 3 Normal 32 - 36 [facility] Comment on above: Performed By: #### 2 02695 #### [facility],[address] [place] [address] 19929 MCV (RBC) [Entitic vol] 88 fL Normal 80 - 99 [facility] Comment on above: Performed By: #### 2 20367 #### [facility],[address] [place] [address] 34404 Monocytes (Bld) [#/Vol] 0.70 x10EE3/UL Normal 0.20 - 1.00 [facility] Comment on above: Performed By: #### 2 25087 #### [facility],[address] [place] [address] 91000 MONOS % 7.6 % Normal 0.0 - 10.0 [facility] Comment on above: Performed By: #### 2 56815 #### [facility],[address] [place] [address] 03889 Morphology Martín (Bld) [Interp] N/A Normal [facility] Comment on above: Result Comment: {CD] Performed By: #### 2 10974 #### [address] [address] Neutrophils (Bld) [#/Vol] 5.20 x10EE3/UL Normal 1.50 - 7.10 [facility] Comment on above: Performed By: #### 2 37135 #### [facility],[address] [place] [address] 83140 Neutrophils/100 WBC (Bld) 58.0 % Normal 46.0 - 76.0 [facility] Comment on above: Performed By: #### 2 38932 #### [facility],[address] [place] [address] 70527 Platelet mean volume (Bld) [Entitic vol] 8.9 fL Normal 6.6 - 10.5 [facility] Comment on above: Result Comment: AUTO MATED DIFFERENTIAL Performed By: #### 2 17136 #### [facility],[address] [place] [address] 95155 Platelets (Bld) [#/Vol] 380 x10EE3/UL Normal 150 - 450 [facility] Comment on above: Performed By: #### 2 27975 #### [facility],[address] [place] [address] 53513 RBC (Bld) [#/Vol] 5.16 x 10EE6/UL Normal 4.10 - 5.30 [facility] Comment on above: Performed By: #### 2 94008 #### [facility],[address] [place] [address] 49982 WBC (Bld) [#/Vol] 9.0 x 10EE3/UL Normal 4.5 - 10.8 [facility] Comment on above: Performed By: #### 2 58141 #### [facility],[address] [place], [place] [phone] CMP with eGFRon 10-17-2020 Age - Reported 60 years Normal [facility] Comment on above: Performed By: #### 2 67623 ####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 AND OLDER. Performed By: #### 2 05304 #### [facility],[address] [place] [address] 19609 Globulin (S) [Mass/Vol] 3.6 g/dL Normal 1.5 - 3.8 [facility] Comment on above: Performed By: #### 2 21907 #### [address] [address] Glucose [Mass/Vol] 101 mg/dL Normal 74 - 106 [facility] Comment on above: Performed By: #### 2 32498 #### [facility],[address] [place] [address] 14401 Potassium [Moles/Vol] 4.1 mmol/L Normal 3.5 - 5.1 [facility] Comment on above: Performed By: #### 2 49299 #### [facility],[address] [place] [address] 51311 Protein [Mass/Vol] 7.1 g/dL Normal 6.4 - 8.2 [facility] Comment on above: Performed By: #### 2 50324 #### [facility],[address] [place] [address] 09661 Sodium [Moles/Vol] 140 mmol/L Normal 136 - 145 [facility] Comment on above: Performed By: #### 2 88855 #### [facility],[address] [place] [address] 27593 Urea nitrogen [Mass/Vol] 14 mg/dL Normal 7 - 18 [facility] Comment on above: Performed By: #### 2 13415 #### [facility],[address] [place] [address] 22332 CPKon 10-15-2020 CPK 37 U/L Normal 26 - 192 [facility] Comment on above: Performed By: #### 2 06111 #### [facility],[address] [place] [address] 00932 D-DIMER, QUANTITATIVEon 09-18 D-DIMER QUANT 275 ng/ml High 0 - 230 [facility] Comment on above: Performed By: #### 2 16605 #### [facility],[address] [place] [address] 41930 D-DIMER, QUANTITATIVE Normal [facility] Comment on above: Result Comment: ALFONSO T D-DIMER Performed By: #### 2 68784 #### [facility],[address] [place] [address] 56986 LDHon 10-15-2020 LDH 129 U/L Normal 81 - 234 [facility] Comment on above: Performed By: #### 2 83207 #### [facility],[address] [place] [address] 33158 PROTHROMBIN TIME AND INRon INR Coag (Bld) [Relative time] Normal [facility] Comment on above: Result Comment: PROT HROMBIN TIME AND INR Performed By: #### 2 86213 #### [facility],[address] [place] [address] 79432 INR Coag (PPP) [Relative time] 1.0 {INR} Normal 0.8 - 1.2 [facility] Comment on above: Result Comment: T HE HEMOSIL THROMBOPLASTIN REAGENT USED IN THE PROTHROMBIN TIME TEST INTERACTS WITH THE DRUG CUBICIN (DAPTOMYCIN) AND WILL RESULT IN FALSELY ELEVATED PT / INR RESULTS INR INTERPRETATION INR INDICATION PREVENTION AND TREATMENT OF THROMBOEMBOLISM ASSOCIATED WITH: 2.0 - 3.0 ATRIAL FIBRILLATION, BIOPROSTHETIC HEART VALVES, PULMONARY EMBOLISM, VENOUS THROMBOSIS, SYSTEMIC EMBOLISM POST MYOCARDIAL INFARCTION 2.5 - 3.5 MECHANICAL HEART VALVES Performed By: #### 2 20917 #### [facility],[address] [place] [address] PT-COUMADIN 11.2 sec Normal 9.3 - 14.1 [facility] Comment on above: Performed By: #### 2 57552 #### [facility],[address] [place] [address] TROPONINon 10-15-2020 Troponin I.cardiac [Mass/Vol] 4.3 pg/mL Normal 0.0 - 51.4 [facility] Comment on above: Performed By: #### 2 99097 #### [facility],[address] [place] [address] APTTon 10-14-2020 aPTT Coag (Bld) [Time] 26.1 s Normal 25.4 - 38.4 [facility] Comment on above: Performed By: #### 2 06926 #### [facility],[address] [place] [address] BB SINGLE DONOR FROZ PLASMon 10-14-2020 BB SINGLE DONOR FROZ PLASM Normal [facility] Comment on above: Result Comment: [id number] REQUEST FOR BLOOD OR BLOOD COMPONENT UNIT #_1 10/14/20.DJB. Performed By: #### 2 93554 #### [facility],[address] [place] [address] Compatibility COMPATIBLE Normal [facility] Comment on above: Result Comment: [employer] sfusion comments [id number] 10/14/20.DJB. Name and number from blood bank ID bracelet I have confirmed the above required items at the time of unit issue: Issuing Tech ........................ === PT ID VERIFIED AT BEDSIDE PRIOR TO BLOOD ADMINISTRATION PT ID VERIFIED AND DOCUMENTED BY TWO NURSES PT Name same on unit and BB ID Bracelet Verify PT name by asking to state name(if poss.) Pt's MR Number on bag is the same as BB ID Bracelet Verify Pt's ABO Group/Rh from this sheet Verify unit number from unit and this sheet Informed consent obtained? I have checked the above listed items and there were no discrepancies #1 RN signature .................... Date/Time .................. #2 RN signature .................... Date/Time .................. === RECORD OF PATIENT'S RESPONSE Date/Time Prior to transfusion ......... Start of transfusion ......... 15 minute check ......... Blood complete/DC ......... SITE: Central Vein Central Artery Peripheral Vein Peripheral Artery [place]IV[place] (1/4, 1/2, 3/4 or full unit) WAS THERE A REACTION TO THE TRANSFUSION? Yes... No... If so, notify the physician and the lab immediately, and initiate a Blood Transfusion Reaction form. COMPLETE FORMS ENTIRELY. KEEP CARDBOARD COPY ATTACHED TO UNIT. PLACE WHITE COPY ON CHART. RETURN YELLOW COPY TO LAB ANITHA UPON COMPLETION OF TRANSFUSION. Performed By: #### 2 09514 #### [facility],[address] [place] [address] Component SINGLE DONOR PLASMA Normal [facility] Comment on above: Performed By: #### 2 30271 #### [facility],[address] [place] [address] Donor's ABO/Rh Positive Normal [facility] Comment on above: Performed By: #### 2 48742 #### [facility],[address] [place] [address] Donor's Unit No [id number] [facility] Comment on above: Performed By: #### 2 47028 #### [facility],[address] [place] [address] Pt's ABO/Rh Positive Normal [facility] Comment on above: Performed By: #### 2 72776 #### [facility],[address] [place] [address] Unit Exp Date 06/03/2021 [facility] Comment on above: Performed By: #### 2 94118 #### [facility],[address] [place] [address] BB TYPE & SCREENon 0 ABO A Normal [facility] Comment on above: Performed By: #### 2 81085 #### [facility],[address] [place] [address] ANTIBODY SCR Negative Normal [facility] Comment on above: Performed By: #### 2 83017 #### [facility],[address] [place] [address] BB TYPE & SCREEN Normal [facility] Comment on above: Result Comment: TYPE , Rh, AND SCREEN Performed By: #### 2 68867 #### [facility],[address] [place] [address] 70344 Rh Nom (Bld) Positive Normal [facility] Comment on above: Performed By: #### 2 39268 #### [facility],[address] [place] [address] 98352 C-REACTIVE PROTEINon CRP [Mass/Vol] 0.90 mg/dl Normal 0.00 - 0.90 [facility] Comment on above: Performed By: #### 2 59632 #### [facility],[address] [place] [address] 54498 CBC + DIFFon 10-14-2020 Basophils (Bld) [#/Vol] 0.00 x10EE3/UL Normal 0.00 - 0.10 [facility] Comment on above: Performed By: #### 2 61256 #### [facility],[address] [place] [address] 37964 Basophils/100 WBC (Bld) 0.4 % Normal 0.0 - 2.0 [facility] Comment on above: Performed By: #### 2 47494 #### [facility],[address] [place], [place] [address] CBC + DIFF Normal [facility] Comment on above: Result Comment: CBC- COMPLETE BLOOD COUNT Performed By: #### 2 83469 #### [facility],[address] [place] [address] 86137 Eosinophils (Bld) [#/Vol] 0.00 x10EE3/UL Normal 0.00 - 0.50 [facility] Comment on above: Performed By: #### 2 03792 #### [facility],[address] [place] [address] 85513 Eosinophils/100 WBC (Bld) 0.0 % Normal 0.0 - 7.0 [facility] Comment on above: Performed By: #### 2 88280 #### [facility],[address] [place], [place] [id number] Erythrocyte distribution width (RBC) [Ratio] 13.5 % Normal 12.0 - 15.6 [facility] Comment on above: Performed By: #### 2 55539 #### [facility],[address] [place], [place] [id number] Hematocrit (Bld) [Volume fraction] 40.2 % Normal 34.0 - 46.0 [facility] Comment on above: Performed By: #### 2 27076 #### [facility],[address] [place] [address] Hemoglobin (Bld) [Mass/Vol] 13.3 g/dL Normal 12.0 - 16.0 [facility] Comment on above: Performed By: #### 2 93740 #### [facility],[address] [place] [address] 36421 Lymphocytes (Bld) [#/Vol] 1.10 x10EE3/UL Normal 0.80 - 2.80 [facility] Comment on above: Performed By: #### 2 96043 #### [facility],[address] [place] [address] 63410 Lymphocytes/100 WBC (Bld) 20.4 % Normal 20.0 - 45.0 [facility] Comment on above: Performed By: #### 2 74111 #### [facility],[address] [place] [address] 37700 MANUAL DIFF N/A Normal [facility] Comment on above: Performed By: #### 2 67707 #### [facility],[address] [place] [address] 58748 MCH (RBC) [Entitic mass] 29 pg Normal 27 - 33 [facility] Comment on above: Performed By: #### 2 61083 #### [facility],[address] [place] [address] 53551 MCHC (RBC) [Mass/Vol] 33 X10 3 Normal 32 - 36 [facility] Comment on above: Performed By: #### 2 68261 #### [facility],[address] [place] [address] 13380 MCV (RBC) [Entitic vol] 88 fL Normal 80 - 99 [facility] Comment on above: Performed By: #### 2 38619 #### [facility],[address] [place] [address] 68682 Monocytes (Bld) [#/Vol] 0.50 x10EE3/UL Normal 0.20 - 1.00 [facility] Comment on above: Performed By: #### 2 51824 #### [facility],[address] [place] [address] 69485 MONOS % 9.3 % Normal 0.0 - 10.0 [facility] Comment on above: Performed By: #### 2 40882 #### [facility],[address] [place], [place] [id number] Morphology Martín (Bld) [Interp] N/A Normal [facility] Comment on above: Result Comment: {CD] Performed By: #### 2 58188 #### [address] [address] Neutrophils (Bld) [#/Vol] 3.90 x10EE3/UL Normal 1.50 - 7.10 [facility] Comment on above: Performed By: #### 2 08454 #### [facility],[address] [place] [address] 19845 Neutrophils/100 WBC (Bld) 69.9 % Normal 46.0 - 76.0 [facility] Comment on above: Performed By: #### 2 82663 #### [facility],[address] [place] [address] 70883 Platelet mean volume (Bld) [Entitic vol] 8.6 fL Normal 6.6 - 10.5 [facility] Comment on above: Result Comment: AUTO MATED DIFFERENTIAL Performed By: #### 2 27370 #### [facility],[address] [place] [address] 73003 Platelets (Bld) [#/Vol] 326 x10EE3/UL Normal 150 - 450 [facility] Comment on above: Performed By: #### 2 24367 #### [facility],[address] [place] [address] 87444 RBC (Bld) [#/Vol] 4.59 x 10EE6/UL Normal 4.10 - 5.30 [facility] Comment on above: Performed By: #### 2 70586 #### [facility],[address] [place] [address] 28813 WBC (Bld) [#/Vol] 5.5 x 10EE3/UL Normal 4.5 - 10.8 [facility] Comment on above: Performed By: #### 2 94339 #### [facility],[address] [place], [place] [id number] CMP with eGFRon 10-14-2020 Age - Reported 60 years Normal [facility] Comment on above: Performed By: #### 2 01021 #### [facility],[address] [place] [address] 36282 Albumin [Mass/Vol] 3.1 g/dL Low 3.4 - 5.0 [facility] Comment on above: Performed By: #### 2 95038 #### [facility],[address] [place] [address] 53327 Albumin/Globulin [Mass ratio] 0.9 {ratio} Normal 0.9 - 1.6 [facility] Comment on above: Performed By: #### 2 80609 #### [facility],[address] [place] [address] 57420 ALK PHOS 66 U/L Normal 46 - 116 [facility] Comment on above: Performed By: #### 2 00025 #### [facility],[address] [place] [address] 13411 ALT/SGPT 27 U/L Normal 14 - 59 [facility] Comment on above: Performed By: #### 2 39716 #### [facility],[address] [place] [address] 12857 Anion gap [Moles/Vol] 11 mmol/L Normal 10 - 20 [facility] Comment on above: Performed By: #### 2 03248 #### [facility],[address] [place] [address] 21930 AST/SGOT 18 U/L Normal 13 - 39 [facility] Comment on above: Performed By: #### 2 73833 #### [facility],[address] [place] [address] 44642 B/C RATIO 14 ratio Normal 0 - 30 [facility] Comment on above: Performed By: #### 2 71117 #### [facility],[address] [place] [address] 23095 Bilirubin [Mass/Vol] 0.5 mg/dL Normal 0.2 - 1.0 [facility] Comment on above: Performed By: #### 2 12029 #### [facility],[address] [place] [address] 63629 Calcium [Mass/Vol] 8.2 mg/dL Low 8.5 - 10.1 [facility] Comment on above: Performed By: #### 2 69090 #### [facility],[address] [place] [address] 83277 Chloride [Moles/Vol] 109 mmol/L High 98 - 107 [facility] Comment on above: Performed By: #### 2 62787 #### [facility],[address] [place] [address] 06059 CO2 [Moles/Vol] 25.8 mmol/L Normal 21.0 - 32.0 [facility] Comment on above: Performed By: #### 2 07157 #### [facility],[address] [place] [address] 06705 Creatinine [Mass/Vol] 0.8 mg/dL Normal 0.5 - 1.0 [facility] Comment on above: Performed By: #### 2 47026 #### [facility],[address] [place] [address] 37268 GFR/1.73 sq M predicted among non-blacks MDRD (S/P/Bld) [Vol rate/Area] Normal [facility] Comment on above: Result Comment: COMP REHENSIVE METABOLIC PANEL Performed By: #### 2 19801 #### [facility],[address] [place] [address] 05484 GFR/1.73 sq M predicted among non-blacks MDRD (S/P/Bld) [Vol rate/Area] mL/min/{1.73_m2} Normal 60 - 999 [facility] Comment on above: Performed By: #### 2 95344 #### [facility],[address] [place], [place] [phone] Result Comment: ACCO RDING TO THE NATIONAL KIDNEY DISEASE EDUCATION PROGRAM(NKDE), A NORMAL eGFR IS A VALUE GREATER THAN OR EQUAL TO 60 ML/MIN/1.73 SQ METERS. CHRONIC KIDNEY DISEASE: <60mL/MIN/1.73 SQ METERS KIDNEY FAILURE: <15mL/MIN/1.73 SQ METERS THIS TEST SHOULD ONLY BE USED FOR PATIENTS 18 YEARS OF AGE AND OLDER. Globulin (S) [Mass/Vol] 3.6 g/dL Normal 1.5 - 3.8 [facility] Comment on above: Performed By: #### 2 63584 #### [facility],[address] [place] [address] 13749 Glucose [Mass/Vol] 107 mg/dL High 74 - 106 [facility] Comment on above: Performed By: #### 2 97811 #### [facility],[address] [place] [address] 49785 Potassium [Moles/Vol] 4.4 mmol/L Normal 3.5 - 5.1 [facility] Comment on above: Performed By: #### 2 30429 #### [facility],[address] [place] [address] 51966 Protein [Mass/Vol] 6.7 g/dL Normal 6.4 - 8.2 [facility] Comment on above: Performed By: #### 2 35300 #### [facility],[address] [place] [address] 65594 Sodium [Moles/Vol] 141 mmol/L Normal 136 - 145 [facility] Comment on above: Performed By: #### 2 92192 #### [facility],[address] [place] [address] 61415 Urea nitrogen [Mass/Vol] 11 mg/dL Normal 7 - 18 [facility] Comment on above: Performed By: #### 2 24588 #### [facility],[address] [place] [address] 38434 CPKon 10-14-2020 CPK 32 U/L Normal 26 - 192 [facility] Comment on above: Performed By: #### 2 88780 #### [facility],[address] [place] [address] 18193 D-DIMER, QUANTITATIVEon 09-17 D-DIMER QUANT 241 ng/ml High 0 - 230 [facility] Comment on above: Performed By: #### 2 52001 #### [facility],[address] [place] [address] 69985 D-DIMER, QUANTITATIVE Normal [facility] Comment on above: Result Comment: ALFONSO T D-DIMER Performed By: #### 2 67807 #### [facility],[address] [place] [address] 55466 LDHon 10-14-2020 LDH 139 U/L Normal 81 - 234 [facility] Comment on above: Performed By: #### 2 72548 #### [facility],[address] [place] [address] 12296 PROTHROMBIN TIME AND INRon 1 12-15-2019 INR Coag (Bld) [Relative time] Normal [facility] Comment on above: Result Comment: PROT HROMBIN TIME AND INR Performed By: #### 2 21965 #### [facility],[address] [place] [address] INR Coag (PPP) [Relative time] 0.9 {INR} Normal 0.8 - 1.2 [facility] Comment on above: Result Comment: T HE HEMOSIL THROMBOPLASTIN REAGENT USED IN THE PROTHROMBIN TIME TEST INTERACTS WITH THE DRUG CUBICIN (DAPTOMYCIN) AND WILL RESULT IN FALSELY ELEVATED PT / INR RESULTS INR INTERPRETATION INR INDICATION PREVENTION AND TREATMENT OF THROMBOEMBOLISM ASSOCIATED WITH: 2.0 - 3.0 ATRIAL FIBRILLATION, BIOPROSTHETIC HEART VALVES, PULMONARY EMBOLISM, VENOUS THROMBOSIS, SYSTEMIC EMBOLISM POST MYOCARDIAL INFARCTION 2.5 - 3.5 MECHANICAL HEART VALVES Performed By: #### 2 64914 #### [facility],[address] [place] [address] PT-COUMADIN 10.9 sec Normal 9.3 - 14.1 [facility] Comment on above: Performed By: #### 2 26940 #### [place] [address] TROPONINon 10-14-2020 Troponin I.cardiac [Mass/Vol] 4.0 pg/mL Normal 0.0 - 51.4 [facility] Comment on above: Performed By: #### 2 73020 #### [facility],[address] [place], [place] [address] CBC + DIFFon 10-13-2020 Basophils (Bld) [#/Vol] 0.10 x10EE3/UL Normal 0.00 - 0.10 [facility] Comment on above: Performed By: #### 2 73422 #### [place] [address] Basophils/100 WBC (Bld) 1.0 % Normal 0.0 - 2.0 [facility] Comment on above: Performed By: #### 2 15837 #### [facility],[address] [place] [address] CBC + DIFF Normal [facility] Comment on above: Result Comment: CBC- COMPLETE BLOOD COUNT Performed By: #### 2 70764 #### [facility],[address] [place], [place] [address] Eosinophils (Bld) [#/Vol] 0.00 x10EE3/UL Normal 0.00 - 0.50 [facility] Comment on above: Performed By: #### 2 17884 #### [facility],[address] [place], [place] [address] Eosinophils/100 WBC (Bld) 0.7 % Normal 0.0 - 7.0 [facility] Comment on above: Performed By: #### 2 95106 #### [facility],[address] [place], [place] [address] Erythrocyte distribution width (RBC) [Ratio] 13.4 % Normal 12.0 - 15.6 [facility] Comment on above: Performed By: #### 2 15674 #### [facility],[address] [place], [place] [address] Hematocrit (Bld) [Volume fraction] 46.0 % Normal 34.0 - 46.0 [facility] Comment on above: Performed By: #### 2 71460 #### [facility],[address] [place], [place] [address] Hemoglobin (Bld) [Mass/Vol] 15.5 g/dL Normal 12.0 - 16.0 [facility] Comment on above: Performed By: #### 2 81742 #### [facility],[address] [place], [place] [address] Lymphocytes (Bld) [#/Vol] 1.20 x10EE3/UL Normal 0.80 - 2.80 [facility] Comment on above: Performed By: #### 2 28909 #### [facility],[address] [place] [address] 26727 Lymphocytes/100 WBC (Bld) 22.5 % Normal 20.0 - 45.0 [facility] Comment on above: Performed By: #### 2 75802 #### [facility],[address] [place] [address] 79936 MANUAL DIFF N/A Normal [facility] Comment on above: Performed By: #### 2 85172 #### [facility],[address] [place] [address] 29466 MCH (RBC) [Entitic mass] 29 pg Normal 27 - 33 [facility] Comment on above: Performed By: #### 2 43704 #### [facility],[address] [place] [address] 99802 MCHC (RBC) [Mass/Vol] 34 X10 3 Normal 32 - 36 [facility] Comment on above: Performed By: #### 2 34328 #### [facility],[address] [place] [address] 59329 MCV (RBC) [Entitic vol] 86 fL Normal 80 - 99 [facility] Comment on above: Performed By: #### 2 12001 #### [facility],[address] [place] [address] 14549 Monocytes (Bld) [#/Vol] 0.60 x10EE3/UL Normal 0.20 - 1.00 [facility] Comment on above: Performed By: #### 2 66665 #### [facility],[address] [place] [address] 44526 MONOS % 10.7 % High 0.0 - 10.0 [facility] Comment on above: Performed By: #### 2 53581 #### [facility],[address] [place] [address] 77824 Morphology Martín (Bld) [Interp] N/A Normal [facility] Comment on above: Result Comment: {CD] Performed By: #### 2 16448 #### [facility],[address] [place] [address] 98959 Neutrophils (Bld) [#/Vol] 3.40 x10EE3/UL Normal 1.50 - 7.10 [facility] Comment on above: Performed By: #### 2 42998 #### [facility],[address] [place] [address] 90561 Neutrophils/100 WBC (Bld) 65.1 % Normal 46.0 - 76.0 [facility] Comment on above: Performed By: #### 2 62377 #### [facility],[address] [place] [address] 40944 Platelet mean volume (Bld) [Entitic vol] 8.8 fL Normal 6.6 - 10.5 [facility] Comment on above: Result Comment: AUTO MATED DIFFERENTIAL Performed By: #### 2 20776 #### [facility],[address] [place] [address] 97001 Platelets (Bld) [#/Vol] 339 x10EE3/UL Normal 150 - 450 [facility] Comment on above: Performed By: #### 2 69608 #### [facility],[address] [place] [address] 15006 RBC (Bld) [#/Vol] 5.37 x 10EE6/UL High 4.10 - 5.30 [facility] Comment on above: Performed By: #### 2 42273 #### [facility],[address] [place] [address] 57880 WBC (Bld) [#/Vol] 5.2 x 10EE3/UL Normal 4.5 - 10.8 [facility] Comment on above: Performed By: #### 2 73060 #### [facility],[address] [place] [address] 78844 CHEST 1 VIEWon 10-13-2020 CHEST 1 VIEW [place] [address] Patient: ANTIONE BROWER Phone#: : 1960 Age: 60 Gender: F Pt. Type: ER Account: [id number] Location: [id number] Ordering: JHONNY JEAN-BAPTISTE Exam Date: 10/13/2020/11:40 Family Phys: Charge Code: [id number] Physician: Amelia Order #: [id number] DLP Dose#: PROCEDURE: X-RAY CHEST 1 VIEW COMPARISON: None. INDICATIONS: Illness. FINDINGS: LUNGS: Normal. No significant pulmonary parenchymal abnormalities. VASCULATURE: Normal. Unremarkable pulmonary vasculature. CARDIAC: Normal. No cardiac silhouette abnormality or cardiomegaly. MEDIASTINUM: Normal. No visible mass or adenopathy. PLEURA: Normal. No effusion or pleural thickening. BONES: Normal. No fracture or visible bony lesion. OTHER: Negative. CONCLUSION: No acute disease. Dictated by: Velma Oviedo MD on 10/13/2020 at 12:00 Approved by: Velma Oviedo MD on 10/13/2020 at 12:01 Normal [facility] CMP with eGFRon 10-13-2020 Age - Reported 60 years Normal [facility] Comment on above: Performed By: #### 2 01919 #### [facility],[address] [place] [address] 87188 Albumin [Mass/Vol] 4.1 g/dL Normal 3.4 - 5.0 [facility] Comment on above: Performed By: #### 2 66103 #### [facility],[address] [place] [address] 78143 Albumin/Globulin [Mass ratio] 1.0 {ratio} Normal 0.9 - 1.6 [facility] Comment on above: Performed By: #### 2 83971 #### [facility],[address] [place] [address] 37543 ALK PHOS 85 U/L Normal 46 - 116 [facility] Comment on above: Performed By: #### 2 43361 #### [facility],[address] [place] [address] 71024 ALT/SGPT 41 U/L Normal 14 - 59 [facility] Comment on above: Performed By: #### 2 61432 #### [facility],[address] [place] [address] 67137 Anion gap [Moles/Vol] 17 mmol/L Normal 10 - 20 [facility] Comment on above: Performed By: #### 2 44869 #### [facility],[address] [place] [address] 82428 AST/SGOT 29 U/L Normal 13 - 39 [facility] Comment on above: Performed By: #### 2 49774 #### [facility],[address] [place] [address] 89647 B/C RATIO 12 ratio Normal 0 - 30 [facility] Comment on above: Performed By: #### 2 65927 #### [facility],[address] [place] [address] 05667 Bilirubin [Mass/Vol] 1.0 mg/dL Normal 0.2 - 1.0 [facility] Comment on above: Performed By: #### 2 05420 #### [facility],[address] [place] [address] 75922 Calcium [Mass/Vol] 9.0 mg/dL Normal 8.5 - 10.1 [facility] Comment on above: Performed By: #### 2 69312 #### [facility],[address] [place] [address] 28411 Chloride [Moles/Vol] 101 mmol/L Normal 98 - 107 [facility] Comment on above: Performed By: #### 2 73608 #### [facility],[address] [place] [address] 29043 CO2 [Moles/Vol] 23.5 mmol/L Normal 21.0 - 32.0 [facility] Comment on above: Performed By: #### 2 87559 #### [facility],[address] [place] [address] 23584 Creatinine [Mass/Vol] 1.0 mg/dL Normal 0.5 - 1.0 [facility] Comment on above: Performed By: #### 2 89936 #### [facility],[address] [place] [address] 66884 GFR/1.73 sq M predicted among non-blacks MDRD (S/P/Bld) [Vol rate/Area] 56 ML/MINUTE Low 60 - 999 [facility] Comment on above: Performed By: #### 2 65312 #### [facility],[address] [place] [address] 79615 GFR/1.73 sq M predicted among non-blacks MDRD (S/P/Bld) [Vol rate/Area] mL/min/{1.73_m2} Normal 60 - 999 [facility] Comment on above: Result Comment: ACCO RDING TO THE NATIONAL KIDNEY DISEASE EDUCATION PROGRAM(NKDE), A NORMAL eGFR IS A VALUE GREATER THAN OR EQUAL TO 60 ML/MIN/1.73 SQ METERS. CHRONIC KIDNEY DISEASE: <60mL/MIN/1.73 SQ METERS KIDNEY FAILURE: <15mL/MIN/1.73 SQ METERS THIS TEST SHOULD ONLY BE USED FOR PATIENTS 18 YEARS OF AGE AND OLDER. Performed By: #### 2 95181 #### [facility],[address] [place] [address] 23386 GFR/1.73 sq M predicted among non-blacks MDRD (S/P/Bld) [Vol rate/Area] Normal [facility] Comment on above: Result Comment: COMP REHENSIVE METABOLIC PANEL Performed By: #### 2 81571 #### [facility],[address] [place] [address] 86037 Globulin (S) [Mass/Vol] 4.2 g/dL High 1.5 - 3.8 [facility] Comment on above: Performed By: #### 2 92298 #### [facility],[address] [place] [address] 06278 Glucose [Mass/Vol] 133 mg/dL High 74 - 106 [facility] Comment on above: Performed By: #### 2 16323 #### [facility],[address] [place] [address] 18895 Potassium [Moles/Vol] 3.2 mmol/L Low 3.5 - 5.1 [facility] Comment on above: Performed By: #### 2 46398 #### [facility],[address] [place] [address] 37298 Protein [Mass/Vol] 8.3 g/dL High 6.4 - 8.2 [facility] Comment on above: Performed By: #### 2 85877 #### [facility],[address] [place] [address] Sodium [Moles/Vol] 138 mmol/L Normal 136 - 145 [facility] Comment on above: Performed By: #### 2 87561 #### [facility],[address] [place] [address] Urea nitrogen [Mass/Vol] 12 mg/dL Normal 7 - 18 [facility] Comment on above: Performed By: #### 2 08561 #### [facility],[address] [place] [address] CORONAVIRUS (SARS) ANTIGEN T [facility] 10-13-2020 EXTERNAL QC DONE? YES Normal [facility] Comment on above: Performed By: #### 2 22159 #### [facility],[address] [place] [address] INTERNAL CONTROL PASS Normal [facility] Comment on above: Performed By: #### 2 58917 #### [facility],[address] [place] [address] SARS ANTIGEN Positive Critically abnormal NORMAL: NEGATIVE [facility] Comment on above: Result Comment: { CA LLED TO { READ BACK BY Performed By: #### 2 13578 #### [place] [address] SEND TO IC? YES Normal [facility] Comment on above: Result Comment: SARS -CoV-2 THIS TEST IS BEING USED UNDER THE FDA EUA PROCEDURE. THIS ASSAY HAS BEEN VALIDATED AT [facility] FOR USE WITH NASAL AND NASOPHARYNGEAL SWAB SPECIMENS. INTERPRETIVE DATA TEST RESULTS SHOULD ALWAYS BE CONSIDERED IN THE CONTEXT OF CLINICAL OBSERVATIONS AND EPIDEMIOLOGICAL DATA IN MAKING FINAL DIAGNOSIS AND PATIENT MANAGEMENT DECISIONS. PATIENT MANAGEMENT SHOULD FOLLOW CURRENT CDC GUIDELINES. THE NICOLE SARS ANTIGEN MARIE DOES NOT DIFFERENTIATE BETWEEN SARS-CoV & SARS-CoV-2. A POSITIVE TEST RESULT INDICATES THE PRESENCE OF SARS-CoV-2 NUCLEOCAPSID PROTEIN ANTIGEN, AND THE PATIENT IS INFECTED WITH THE VIRUS AND PRESUMED TO BE CONTAGIOUS. A NEGATIVE TEST RESULT FOR THIS TEST MEANS THAT SARS-CoV-2 NUCLEOCAPSID PROTEIN ANTIGEN WAS NOT PRESENT IN THE SPECIMEN ABOVE THE LIMIT OF DETECTION. HOWEVER, A NEGATIVE RESULT DOES NOT RULE OUT COVID-19 AND SHOULD NOT BE USED THE SOLE BASIS FOR TREATMENT OR PATIENT MANAGEMENT DECISIONS. A NEGATIVE RESULT DOES NOT EXCLUDE THE POSSIBILITY OF COVID-19. NEGATIVE RESULTS, FROM PATIENTS WITH SYMPTOM ONSET BEYOND FIVE DAYS, SHOULD BE TREATED PRESUMPTIVE AND CONFIRMATION WITH A MOLECULAR ASSAY, IF NECESSARY, FOR PATIENT MANAGEMENT, MAY BE PERFORMED. WHEN DIAGNOSTIC TESTING IS NEGATIVE, THE POSSIBLILTY OF A FALSE NEGATIVE RESULT SHOULD BE CONSIDERED IN THE CONTEXT OF A PATIENT'S RECENT EXPOSURES AND THE PRESENCE OF CLINICAL SIGNS AND SYMPTOMS CONSISTENT WITH COVID-19. THE POSSIBILITY OF A FALSE NEGATIVE RESULT SHOULD ESPECIALLY BE CONSIDERED IF THE PATIENT'S RECENT EXPOSURES OR CLINICAL PRESENTATION INDICATE THAT COVID-19 IS LIKELY, AND DIAGNOSTIC TESTS FOR OTHER CAUSES OF ILLNESS (e.g., OTHER RESPIRATORY ILLNESS) ARE NEGATIVE. IF COVID-19 IS STILL SUSPECTED BASED ON EXPOSURE HISTORY TOGETHER WITH OTHER CLINICAL FINDINGS, RE-TESTING SHOULD BE CONSIDERED BY HEALTHCARE PROVIDERS IN CONSULTATION WITH PUBLIC HEALTH AUTHORITIES. Performed By: #### 2 39157 #### [place] [address] LACTATEon 10-13-2020 Lactate [Moles/Vol] 1.6 mmol/L Normal 0.4 - 2.0 [facility] Comment on above: Performed By: #### 2 19445 #### [place] [address] CT HEAD W/O CONTRASTon 08-10 CT HEAD W/O CONTRAST Performed at [facility] APPROVED BY: Isrrael Mcclelland MD EXAMINATION: CT HEAD W/O CONTRAST CLINICAL HISTORY: Postsurgical, subdural hemorrhage , new onset headaches x2 weeks TECHNIQUE: Serial axial images without IV contrast were obtained from the vertex to the foramen magnum.MQ: [id number] CT Dose-Length Product (DLP): 795 mGy*cmCT Dose Reduction Employed: 5-no dose reduction technique was required COMPARISON: 07/06/2018 CT RESULT: Post-operative change: Postoperative changes following right frontal craniotomy. Acute change: No evidence of an acute infarct or other acute parenchymal process. Hemorrhage: Interval resolution of the small right frontal subdural hemorrhage. No evidence of acute interval rebleeding. 3 mm isodensity subjacent to the craniotomy which likely postoperative dural changes. Mass Lesion / Mass Effect: There is no evidence of an intracranial mass or extraaxial fluid collection. No significant mass effect. Chronic change: None apparent. Parenchyma: There is no significant volume loss. The brain parenchyma is otherwise within normal limits for age. Ventricles: The ventricles are within normal limits of size and configuration for age. Paranasal sinuses and skull base: The visualized paranasal sinuses are grossly clear. The skull base and imaged soft tissues are unremarkable. IMPRESSION: 1. Interval resolution of small right frontal subdural hemorrhage. No evidence of acute interval rebleeding. Normal [facility] CT HEAD W/O CONTRASTon 07-06 CT HEAD W/O CONTRAST Performed at [facility] APPROVED BY: Isrrael Mcclelland MD Addendum Begins* * * * * * * * ORIGINAL REPORT * * * * * * * *EXAMINATION: CT HEAD W/O CONTRAST CLINICAL HISTORY: Follow-up traumatic subdural hemorrhage TECHNIQUE: Serial axial images without IV contrast were obtained from the vertex to the foramen magnum.MQ: CTBWO_3 CT Dose-Length Product (DLP): 795 mGy*cmCT Dose Reduction Employed: 5-no dose reduction technique was required COMPARISON: 05/25/2018 CT RESULT: Post-operative change: Postoperative changes following right frontal craniotomy with decrease in the volume of subjacent hypodense extra-axial fluid in the right frontal region. Small volume of hyperdense fluid right frontal region measuring 4.6 mm on axial image 10 consistent with a small volume of residual subacute blood Acute change: No evidence of an acute infarct or other acute parenchymal process. Hemorrhage: See discussion above Mass Lesion / Mass Effect: There is no evidence of an intracranial mass or extraaxial fluid collection. No significant mass effect. Chronic change: None apparent. Parenchyma: There is no significant volume loss. The brain parenchyma is otherwise within normal limits for age. Ventricles: The ventricles are within normal limits of size and configuration for age. Paranasal sinuses and skull base: The visualized paranasal sinuses are grossly clear. The skull base and imaged soft tissues are unremarkable. IMPRESSION: 1. Postoperative changes following right frontal craniotomy with decrease in the volume of subjacent hypodense extra-axial fluid in the right frontal region. 2. Small volume of hyperdense fluid right frontal region measuring 4.6 mm on axial image 10 consistent with a small volume of residual subacute blood * * * * * * * * ADDENDUM #1 * * * * * * * *Impression: Should be noted that a small bilateral hyperdense fluid right frontal region could represent a new volume of subacute hemorrhage or redistributed hemorrhage.Results of study were submitted be called to ordering physician following interpretation on 07/07/2018 1144 hoursAddendum EndsEXAMINATION: CT HEAD W/O CONTRAST CLINICAL HISTORY: Follow-up traumatic subdural hemorrhage TECHNIQUE: Serial axial images without IV contrast were obtained from the vertex to the foramen magnum.MQ: CTBWO_3 CT Dose-Length Product (DLP): 795 mGy*cmCT Dose Reduction Employed: 5-no dose reduction technique was required COMPARISON: 05/25/2018 CT RESULT: Post-operative change: Postoperative changes following right frontal craniotomy with decrease in the volume of subjacent hypodense extra-axial fluid in the right frontal region. Small volume of hyperdense fluid right frontal region measuring 4.6 mm on axial image 10 consistent with a small volume of residual subacute blood Acute change: No evidence of an acute infarct or other acute parenchymal process. Hemorrhage: See discussion above Mass Lesion / Mass Effect: There is no evidence of an intracranial mass or extraaxial fluid collection. No significant mass effect. Chronic change: None apparent. Parenchyma: There is no significant volume loss. The brain parenchyma is otherwise within normal limits for age. Ventricles: The ventricles are within normal limits of size and configuration for age. Paranasal sinuses and skull base: The visualized paranasal sinuses are grossly clear. The skull base and imaged soft tissues are unremarkable. IMPRESSION: 1. Postoperative changes following right frontal craniotomy with decrease in the volume of subjacent hypodense extra-axial fluid in the right frontal region. 2. Small volume of hyperdense fluid right frontal region measuring 4.6 mm on axial image 10 consistent with a small volume of residual subacute blood Normal [facility] CT HEAD W/O CONTRASTon 05-25 CT HEAD W/O CONTRAST Performed at [facility] APPROVED BY: Isaac Schneider MD BRAIN CT WITHOUT CONTRAST ENHANCEMENT Serial transverse images of the brain were obtained without contrast material. The study was performed within 24 hours of arrival to evaluate intracranial hemorrhage. CT Dose-Length Product (DLP): 795 mGy*cmCT Dose Reduction Employed: No dose reduction techniques were required Serial images redemonstrate postoperative changes following a right frontal craniotomy with an underlying low attenuation extra-axial collection measuring approximately 6-8 mm in maximal thickness, most likely with both epidural and subdural components. Mass effect is limited to partial effacement of sulci. The overall size of the ventricular system is within normal limits. There is no evidence of acute infarction, hemorrhage, mass lesion, or midline shift. IMPRESSION: No significant interval change when compared with the previous study from 04/2018 as described above. Findings consistent with subacute/chronic hemorrhage are again noted overlying the right cerebral convexity with probable epidural and subdural components and only mild associated mass effect. Normal [facility] CT HEAD W/O CONTRASTon 05-01 CT HEAD W/O CONTRAST Performed at [facility] APPROVED BY: Bobby Chiang MD EXAMINATION: CT HEAD W/O CONTRAST CLINICAL HISTORY: History of subdural hematoma. Patient presents for follow-up. TECHNIQUE: Serial axial images without IV contrast were obtained from the vertex to the foramen magnum.MQ: CTBWO_3 CT Dose-Length Product (DLP): 695.2 mGy*cmCT Dose Reduction Employed: No dose reduction techniques required COMPARISON: 04/13/2018 RESULT: Prior right craniotomy again noted. Underlying predominantly low-density right convexity collection currently measures approximately 6 mm in maximal thickness overlying the right frontal lobe, previously up to 8 mm. No new hemorrhagic components. Mass effect is again noted to include local sulcal effacement. No significant midline shift currently. No CT features of acute or evolving territorial infarct. Ventricles are midline and normal in size and configuration. The paranasal sinuses and the mastoid air cells are grossly clear. IMPRESSION: Mild interval decrease in extent of right cerebral convexity subdural predominantly hypodense hemorrhagic collection compared to 04/13/2018 as described, with slight interval decrease in associated mass effect. No new intracranial abnormality identified. Normal [facility] CT HEAD W/O CONTRASTon 04-13 CT HEAD W/O CONTRAST Performed at [facility] APPROVED BY: Calvin Evangelista MD EXAMINATION: CT HEAD WITHOUT CONTRAST CLINICAL HISTORY: S06.5X9A. Subdural hematoma. TECHNIQUE: Serial axial images without IV contrast were obtained from the vertex to the foramen magnum.MQ: CTBWO_3 CT Dose-Length Product (DLP): 794.52 mGy*cmCT Dose Reduction Employed: No dose reduction techniques were required. COMPARISON: CT head 03/27/2018. RESULT: Post-operative change: Prior right-sided craniotomy. Acute change: No evidence of an acute infarct or other acute parenchymal process. Hemorrhage: The right vertebral convexity subdural hemorrhage has decreased in size since the prior exam and now measures approximately 8 mm in thickness. The right epidural hemorrhage component beneath the margins of the craniotomy site has decreased in size. Mass Lesion / Mass Effect: There is decreased mass effect on the right cerebral hemisphere. There is decreased midline shift from right to left with only minimal residual. Chronic change: None apparent. Parenchyma: There is no significant volume loss. The brain parenchyma is otherwise within normal limits for age. Ventricles: The ventricles are within normal limits of size and configuration for age. Paranasal sinuses and skull base: The visualized paranasal sinuses are grossly clear. The skull base and imaged soft tissues are unremarkable. IMPRESSION: Decrease in size of right subdural hemorrhage. Decreased size of right epidural hemorrhage component. Decreased mass effect on the right cerebral hemisphere. Decreased midline shift. Normal [facility] CT HEAD W/O CONTRASTon 03-27 CT HEAD W/O CONTRAST Performed at [facility] APPROVED BY: Calvin Evangelista MD EXAMINATION: CT HEAD WITHOUT CONTRAST CLINICAL HISTORY: Subdural hematoma. S06.5X9A. TECHNIQUE: Serial axial images without IV contrast were obtained from the vertex to the foramen magnum.MQ: CTBWO_3 CT Dose-Length Product (DLP): 695.20 mGy*cmCT Dose Reduction Employed: No dose reduction techniques were required. COMPARISON: CT head 03/15/2018. RESULT: Post-operative change: No evidence of prior right-sided craniotomy. Acute change: No evidence of an acute infarct or other acute parenchymal process. Hemorrhage: There is a low-density right subdural fluid collection that measures 12 mm in thickness and contains a small amount of gas. Overall this subdural fluid collection has decreased in size compared to the previous head CT. There is also a thin epidural fluid collection immediately beneath the margins of the craniotomy that measures only 6 mm in thickness. Mass Lesion / Mass Effect: There is mass effect on underlying right cerebral hemisphere and minimal deformity of the right lateral ventricle. There is mild midline shift from right to left that has improved since the prior exam. Chronic change: None apparent. Parenchyma: There is no significant volume loss. The brain parenchyma is otherwise within normal limits for age. Ventricles: No hydrocephalus. Paranasal sinuses and skull base: The visualized paranasal sinuses are grossly clear. The skull base and imaged soft tissues are unremarkable. IMPRESSION: 1. Status post right sided craniotomy for subdural hematoma evacuation.2. Mild subdural hemorrhages noted which is decreased in size compared to the preoperative exam.3. There is decreased mass effect and midline shift compared to the prior exam.4. There is a small epidural component of hemorrhage immediately confined to the margins of the craniotomy. Normal [facility] Activated PTTon 03-21-2018 aPTT Coag time (Bld) 23.4 s Normal 22.0-34.0 [facility] Comment on above: Performed By: #### A LC ####[place] [address] Basic Panelon 03-21-2018 Creatinine mass conc 0.81 mg/dL Normal 0.51-0.95 [facility] Comment on above: Performed By: #### A LC ####[place] [address] Anion gap 3 molar conc 11 mmol/L Normal 8-16 [facility] Comment on above: Performed By: #### A LC ####[place] [address] Calcium mass conc 8.8 mg/dL Normal 8.5-10.1 [facility] Comment on above: Performed By: #### A LC ####[facility] [place], [place] [address] CO2 molar conc 26 mmol/L Normal 21-32 [facility] Comment on above: Performed By: #### A LC ####[facility] [place], [place] [address] Glucose mass conc 101 mg/dL High 70-99 [facility] Comment on above: Performed By: #### A LC ####[facility] [place], [place] [address] Urea nitrogen mass conc 7 mg/dL Normal 7-18 [facility] Comment on above: Performed By: #### A LC ####[facility] [place], [place] [address] Chloride molar conc 105 mmol/L Normal 98-107 [facility] Comment on above: Performed By: #### A LC ####[address] [address] Potassium molar conc 3.9 mmol/L Normal 3.5-5.1 [facility] Comment on above: Performed By: #### A LC ####[address] [address] Sodium molar conc 138 mmol/L Normal 136-145 [facility] Comment on above: Performed By: #### A LC ####[address] [address] CASE MANAGEMon 03-21-2018 CASE MANAGEM HNO ID: [id number] thor: CORY Ley Rnervice: Care ManagementAuthor Type: Registered NurseType: Care Mgt Progress NoteFiled: 03/21/2018 1:03 PMNote Text:CARE MANAGEMENT PROGRESS NOTESERVICE DATE: 03/21/2018SERVICE TIME: 1303 LOS: 7 daysPt ready [facility] Wheelchair setup for 5pm. RN aware,pt aware.SIGNATURE: Jennifer Lucia RN PATIENT NAME: Antione FERNANDEZATE: March 21, 2018 : 1:03 PM PAGER/CONTACT #: [phone] Normal [facility] Hemogramon 03-21-2018 Erythrocyte distribution width Auto Ratio (RBC) 13.1 % Normal 11.7-14.4 [facility] Comment on above: Performed By: #### A LC ####[place] [address] Hematocrit Auto Volume Fraction (Bld) 32.0 % Low 34.1-44.9 [facility] Comment on above: Performed By: #### A LC ####[place] [address] Hemoglobin mass conc (Bld) 10.4 g/dL Low 11.2-15.7 [facility] Comment on above: Performed By: #### A LC ####[place] [address] MCH Auto Entitic mass (RBC) 28.3 pg Normal 25.6-32.2 [facility] Comment on above: Performed By: #### A LC ####[place] [address] MCHC Auto mass conc (RBC) 32.5 % Normal 31.6-34.8 [facility] Comment on above: Performed By: #### A LC ####[place] [address] MCV Auto Entitic volume (RBC) 87.0 fL Normal 79.4-94.8 [facility] Comment on above: Performed By: #### A LC ####[place] [address] Platelet mean volume Auto Entitic volume (Bld) 10.0 fL Normal 9.4-12.3 [facility] Comment on above: Performed By: #### A LC ####[place] [address] Platelets Auto #/vol (Bld) 517 thou/cmm High 182-369 [facility] Comment on above: Performed By: #### A LC ####[place] [address] RBC Auto #/vol (Bld) 3.68 mil/cmm Low 3.93-5.22 [facility] Comment on above: Performed By: #### A LC ####[facility] [place], [place] [address] RDW SD 41.5 fl Normal 36.4-46.3 [facility] Comment on above: Performed By: #### A LC ####[facility] [place], [place] [address] WBC Auto #/vol (Bld) 9.33 thou/cmm Normal 3.98-10.04 [facility] Comment on above: Performed By: #### A LC ####[facility] [place], [place] [address] MDRD GFRon 03-21-2018 GFR/1.73 sq M predicted among non-blacks MDRD vol rate/area (S/P/Bld) mL/min/{1.73_m2} Normal >60mL/min/ 1.73m2 [facility] Comment on above: Result Comment: If t he patient is , multiply the result by 1.210. Performed By: #### A LC ####[place] [id number] Magnesium Bloodon 03-21-2018 Magnesium mass conc 2.0 mg/dL Normal 1.6-2.6 [facility] Comment on above: Performed By: #### A LC ####[place] [id number] NURSING PROGon 03-21-2018 Protein mass conc HNO ID: [id number] Author: Hillary (Rn) ROSE Verma Service: Nursing Author Type: Registered Nurse Type: Nursing Progress Note Filed: 03/21/2018 4:08 PM Note Text: Report given to roxanne Drake [facility]. Normal [facility] Protimeon 03-21-2018 INR Coag RelTime (PPP) 0.86 {INR} Normal [facility] Comment on above: Result Comment: Mikel dard Therapy 2.0-3.0High Dose 2.5-3.5 Performed By: #### A LC ####[address] [address] Prothrombin time (PT) Coag time (PPP) 9.4 s Normal 9.3-11.9 [facility] Comment on above: Performed By: #### A ####[place] [address] THERAPY NTon 03-21-2018 THERAPY NT HNO ID: [id number] thor: Halina RosenbergService: Physical TherapyAuthor Type: Physical Therapy AssistantType: Therapy (PT/OT/Speech/Resp)Filed: 03/21/2018 10:13 AMNote Text: At testation signed by Camden Becerril at 03/21/2018 5:28 PMI reviewed and agree with the documentation corresponding to this therapyvisit.SIGNATURE: Camden Becerril, PTDATE: March 21, 2018TIME: 5:28 PM Physi hina Therapy TreatmentSERVICE DATE: 03/21/2018SERVICE TIME: 0935 to 1000ROOM: [id number] Discharge Disposition: Acute RehabJustification For Post Acute Needs: Anticipate patient will tolerate 3hours of daily [facility];Anticipated community discharge;Good premorbid functionalstatus;Living the community premorbidly;Willing to participate;Anticipatethat patient will require daily (5x/wk) skilled therapy in a post-acutefacility setting at the time of acute hospital dischargeRecommended Discharge Equipment: (Defer to receiving facility)PT Recommendations to Nursing: Ambulate with device;To bathroom;Inhalls;OOB for Meals;With assist of 1 personDevice: Wheeled WalkerPT 6 Clicks Score: 17Precautions/Activity Restrictions: Crani;Fall Risk;Lines/Tubes/DrainsPrecau tion/Activity Restriction Comments: Hemovac in placeIsolation Type: NoneASSESSMENT :Pt pleasant and cooperative throughout treatment , patient able totolerate 3 hours of therapy per day, Pt would benefit from acute rehab tomaximize functional mobility and to return to prior functional level.Patient Disposition at Start of Session: Supine in BedPatient Disposition at End of Session: OOB in Chair;Call Couch in ReachTolerated Full Session PainPhysical Therapy Problem List: Decreased Activity Tolerance;DecreasedStrength;F unctional Mobility Impairment;Balance Impaired;Safety DeficitsPatient /Caregiver Goals: Go HomeGoals for Plan of Care:Rolling with: Verbal Cues OnlyTransfer supine to/from sit with: Stand By AssistanceTransfer sit to/from stand with: Stand By AssistanceAmbulate with: Stand By AssistanceDistance: 50'x2 with appropriate safety and sequencing without LOBDevice: Wheeled WalkerProgress Toward Goals: Progressing as expectedRehab Potential: ExcellentPLAN:Treatment Frequency (times per week): 5 (2-5) Current admissionTreatment Interventions: Education;Joint Mobility;Strengthening;Functi onalMobility Training;Balance Training;Neuromuscular Re-educationPlan of Care developed with: PatientTREATMENT INTERVENTIONS:Therapy Diagnosis: Reduced mobility-otherInterventions Provided: Therapeutic Exercise (98157);Therapeutic Activity(39919);Gait Training (81937)Therapeutic Exercise (07011) Treatment Minutes: 101 unitSkilled Intervention(s): Instruction in therapeutic exercise For ROM andstrengtheningPatient completed general strengthening exercises in supine, at edge ofbed or chair (ankle pump, quad set, gluteal set, hip abd/add, straight legraise, short arc quad, hip adductor squeeze) x 12 reps B lowerextremity, with min assist.Therapeutic Activity (25914) Treatment Minutes: 50 unitsSkilled Intervention(s): Instructed patient in supine to sit pushing withupper extremities to sit up with verbal cues for proper technique .Instruction in sit to and from stand technique with proper hand placementand body positioning at edge of bed/chair with wheeled walker with verbalcues for safety awareness.Gait Training (86954) Treatment Minutes: 101 unitSkilled Intervention(s): Instruction in use of equipment, cues forsequence and pattern with ambulation with wheeled walker with unsteadygait, narrow DIMITRI and occasional scissoring gait pattern. Rhomberg EO/EC 30 secs. Each with min /CGA for balance with lateralsway , increased lateral sway with EC , LOB x 2 .Total Timed Code Treatment Minutes: 25Total Treatment Time (minutes): 25SUBJECTIVE:Current Hospital Course: Chart reviewed and no significant medical updatesrelevant to therapy were notedReason for Physical Therapy Consult : PT evaluationRelevant Past Medical History: trauma MVAPatient Report: Pt in bed and agreeable to PT session.Home EnvironmentPatient Lives With: Significant OtherAssistance Available: multimedia project manager (spouse works)Prior Functional Level: Within Functional Limits (reports increasingdifficulty the past 2 weeks due to pain)OBJECTIVE:Mini Cog Score: 3 (03/16/18 1005)CURRENT FUNCTIONAL STATUS:Current Functional Mobility Assist Level Additional InformationRollingSupine to Sit CGASit to SupineScootingSit to Stand Minimal AssistanceStand to Sit Minimal AssistanceBed to ChairToilet/CommodeGait Minimal Assistance Gait Device: Wheeled Walker Gait Distance (feet): 40 x 2StairsCurb StepCar TransferGeneral Gait Deviations: Lela decreased;Lateral sway increased;Steplength decreased;Narrow Base of Support;Difficulty changingdirection/turning;Non -functional gait speedPlease see discipline specific clinical documentation flowsheet forcomplete details for this therapy evaluation/treatment.SIGNRADHA E: Halina Rosenberg PTA PATIENT NAME: Antione JACOBS: March 21, 2018 : 10:06 AM PAGER/CONTACT #: [phone] Normal [facility] Activated PTTon 03-20-2018 aPTT Coag time (Bld) 23.8 s Normal 22.0-34.0 [facility] Comment on above: Performed By: #### A MY ####[facility] [place] [address] Basic Panelon 03-20-2018 Creatinine mass conc 0.78 mg/dL Normal 0.51-0.95 [facility] Comment on above: Performed By: #### A MY ####[facility] [place], [place] [address] Glucose mass conc 113 mg/dL High 70-99 [facility] Comment on above: Performed By: #### A MY ####[facility] [place], [place] [address] Urea nitrogen mass conc 6 mg/dL Low 7-18 [facility] Comment on above: Performed By: #### A MY ####[facility] [place] [address] Anion gap 3 molar conc 8 mmol/L Normal 8-16 [facility] Comment on above: Performed By: #### A MY ####[place] [address] Calcium mass conc 9.1 mg/dL Normal 8.5-10.1 [facility] Comment on above: Performed By: #### A MY ####[place] [address] CO2 molar conc 29 mmol/L Normal 21-32 [facility] Comment on above: Performed By: #### A MY ####[place] [address] Chloride molar conc 106 mmol/L Normal 98-107 [facility] Comment on above: Performed By: #### A MY ####[place] [address] Potassium molar conc 3.9 mmol/L Normal 3.5-5.1 [facility] Comment on above: Performed By: #### A MY ####[place] [address] Sodium molar conc 139 mmol/L Normal 136-145 [facility] Comment on above: Performed By: #### A MY ####[place] [address] CASE MANAGEMon 03-20-2018 CASE MANAGEM HNO ID: [id number] thor: Jennifer (Rn) CORY Luciaervice: Care ManagementAuthor Type: Registered NurseType: Care Mgt Progress NoteFiled: 03/20/2018 1:40 PMNote Text:CARE MANAGEMENT PROGRESS NOTESERVICE DATE: 03/20/2018SERVICE TIME: 1339 LOS: 6 daysPt awaiting precert [facility]. Can dc once obtained.SIGNATURE: Jennifer Lucia RN PATIENT NAME: Antione JACOBS: March 20, 2018 : 1:39 PM PAGER/CONTACT #: [phone] Normal [facility] CASE MANAGEM HNO ID: [id number] Author: Mara (Specialist) Natacha Service: (none) Author Type: (none) Type: Care Mgt Progress Note Filed: 03/20/2018 9:54 AM Note Text: Update sent to [facility] Living Normal [facility] Hemogramon 03-20-2018 Erythrocyte distribution width Auto Ratio (RBC) 13.2 % Normal 11.7-14.4 [facility] Comment on above: Performed By: #### A MY ####[place] [address] Hematocrit Auto Volume Fraction (Bld) 32.0 % Low 34.1-44.9 [facility] Comment on above: Performed By: #### A MY ####[place] [address] Hemoglobin mass conc (Bld) 10.5 g/dL Low 11.2-15.7 [facility] Comment on above: Performed By: #### A MY ####[place] [address] MCH Auto Entitic mass (RBC) 28.2 pg Normal 25.6-32.2 [facility] [facility] Comment on above: Performed By: #### A MY ####[place] [address] MCHC Auto mass conc (RBC) 32.8 % Normal 31.6-34.8 [facility] Comment on above: Performed By: #### A MY ####[place] [address] MCV Auto Entitic volume (RBC) 86.0 fL Normal 79.4-94.8 [facility] Comment on above: Performed By: #### A MY ####[place] [id number] Platelet mean volume Auto Entitic volume (Bld) 9.9 fL Normal 9.4-12.3 [facility] Comment on above: Performed By: #### A MY ####[facility] [place] [address] Platelets Auto #/vol (Bld) 475 thou/cmm High 182-369 [facility] Comment on above: Performed By: #### A MY ####[place] [address] RBC Auto #/vol (Bld) 3.72 mil/cmm Low 3.93-5.22 [facility] Comment on above: Performed By: #### A MY ####[place] [address] RDW SD 41.2 fl Normal 36.4-46.3 [facility] Comment on above: Performed By: #### A MY ####[place] [address] WBC Auto #/vol (Bld) 10.02 thou/cmm Normal 3.98-10.04 [facility] Comment on above: Performed By: #### A MY ####[place] [address] MDRD GFRon 03-20-2018 GFR/1.73 sq M predicted among non-blacks MDRD vol rate/area (S/P/Bld) mL/min/{1.73_m2} Normal >60mL/min/ 1.73m2 [facility] Comment on above: Result Comment: If t he patient is , multiply the result by 1.210. Performed By: #### A LC ####[place] [address] PROGRESSon 03-20-2018 Protein mass conc HNO ID: [id number] thor: Godwin Guido MarkarianService: NeurosurgeryAuthor Type: PhysicianType: Progress NotesFiled: 03/20/2018 2:46 PMNote Text:PROGRESS NOTE NEUROSURGERYSERVICE DATE: 03/20/2018SERVICE TIME: 2:45 PMSubjectiveINTERVAL HPIStable overnight. Awaiting dischargeCurrent hospital medications:levETIRAcetam 1,000 mg tab(s) (KEPPRA) 1,000 mg ORAL BIDlabetalol 10 mg injection syringe (NORMODYNE) 10 mg INTRAVENOUS q 4 H PRNmetoprolol tartrate (short acting) 12.5 mg tab(s) (LOPRESSOR) 12.5 mg ORALBIDdocusate sodium 100 mg cap(s) (COLACE) 100 mg ORAL BID PRNbisacodyl 10 mg suppository (DULCOLAX) 10 mg RECTAL DAILY PRNNaCl 0.9% iv infusion 5-30 mL/hr INTRAVENOUS CONTINUOUSondansetron (PF) 4 mg injection (ZOFRAN) 4 mg INTRAVENOUS q [address] mg tab(s) (PROTONIX) 40 mg ORAL DAILY (6 AM)oxyCODONE-acetaminophen 5-325 mg 1-2 tablet (PERCOCET) 1-2 tablet ORAL q 4H PRNatorvastatin 20 mg tab(s) (LIPITOR) 20 mg ORAL AT BEDTIMEfamotidine 20 mg tab(s) (PEPCID) 20 mg ORAL DAILYPARoxetine 20 mg tab(s) (PAXIL) 20 mg ORAL DAILYObjectiveAlert, Oriented to Person, Place, TimeEOMIPERRLFace SymmetricTongue MidlineMAESNo DriftVITAL SIGNS 24 HOUR REVIEW:Patient Vitals for the past 24 hrs: BP Temp Temp src Pulse Resp [id number]/20/18 0904 100/72 37.1 ?C (98.8 ?F) - 120 18 97 %03/20/18 0324 112/74 36.7 ?C (98.1 ?F) Oral 94 18 96 %03/19/18 2327 108/69 37 ?C (98.6 ?F) Oral 81 19 99 %03/19/18 2118 118/74 37.9 ?C (100.2 ?F) Oral 119 18 97 %03/19/18 1600 111/76 37 ?C (98.6 ?F) - 102 18 99 %LABS:CBC, Coags, BMP, Mg, PhosRecent Labs 03/19/1803WBC 10.02 10.65* 10.78*HB 10.5* 11.0* 10.3*HCT 32.0* 33.4* 30.7*PLT 475* 496* 420*INR 0.90 0.86 0.93APTT 23.8 25.2 25.2NA 139 138 138K 3.9 3.6 3.2*CHLOR 106 103 104CO2 29 28 28BUN 6* 10 9CREAT 0.78 0.86 0.81GLUC 113* 98 100*CA 9.1 9.2 8.6MG -- 1.9 1.8DATA:Diagnostic tests reviewed for today's visit:Most recent labs and imaging results.Assessment/PlanActive Problems: Subdural hematoma (HCC) POA: Yes Assessment AND Plan: Stable. Awaiting discharge.Resolved Problems: * No resolved hospital problems. *Medication and Non-Pharmacologic VTE Prophylaxis/Xvsfmacwrzxnio79/ 31/18 1030 vte pharmacologic prophylaxis contraindicated ([place])03/16/18 1030 pneumatic compression stockings [place])03/15/18 1445 vte pharmacologic prophylaxis contraindicated [place]03/14/18 1700 pneumatic compression stockings ([place])VTE Prophylaxis: VTE prophylaxis appropriateSIGNATURE: Godwin Ramirez MD PATIENT NAME: Antione JACOBS: March 20, 2018 : 2:45 PM PAGER/CONTACT #: [phone] Normal [facility] Protimeon 03-20-2018 INR Coag RelTime (PPP) 0.90 {INR} Normal [facility] Comment on above: Result Comment: Mikel haneyd Therapy 2.0-3.0High Dose 2.5-3.5 Performed By: #### A MY ####[place] [address] Prothrombin time (PT) Coag time (PPP) 9.8 s Normal 9.3-11.9 [facility] Comment on above: Performed By: #### A MY ####[place] [id number] THERAPY NTon 03-20-2018 THERAPY NT HNO ID: [id number] thor: Stanley (Quad Stayer) Conniee: Physical TherapyAuthor Type: Physical Therapy AssistantType: Therapy (PT/OT/Speech/Resp)Filed: 03/20/2018 9:38 AMNote Text: At testation signed by Camden WayPtMery Becerril at 03/21/2018 8:52 AMI reviewed and agree with the documentation corresponding to this therapyvisit.SIGNATURE: Camden Becerril, PTDATE: March 21, 2018TIME: 8:52 AM Physi [facility] Therapy TreatmentSERVICE DATE: 03/20/2018SERVICE TIME: 829 to 912ROOM: [id number] Discharge Disposition: Acute RehabJustification For Post Acute Needs: Anticipate patient will tolerate 3hours of daily [facility];Anticipated community discharge;Good premorbid functionalstatus;Living the community premorbidly;Willing to participate;Anticipatethat patient will require daily (5x/wk) skilled therapy in a post-acutecity emergency hospitality setting at the time of acute hospital dischargeRecommended Discharge Equipment: (Defer to receiving facility)PT Recommendations to Nursing: Ambulate with device;To bathroom;Inhalls;OOB for Meals;With assist of 1 personDevice: Wheeled WalkerPT 6 Clicks Score: 17Precautions/Activity Restrictions: Crani;Fall Risk;Lines/Tubes/DrainsPrecau tion/Activity Restriction Comments: Hemovac in placeIsolation Type: NoneASSESSMENT :Patient progressing towards goals.Patient also demonstrates balancedeficits during ambulation scoring 8/12 via dynamic gait index with use ofwheeled walker and continues to demonstrate challenges with following 3step commands and performing dual tasks. All goals on going. Continues torecommend acute rehab at time of discharge to promote independencemobility and activities of daily living for return to prior level offunction.Patient Disposition at Start of Session: Supine in BedPatient Disposition at End of Session: OOB in Chair;Call Couch in ReachTolerated Full Session PainPhysical Therapy Problem List: Decreased Activity Tolerance;DecreasedStrength;F unctional Mobility Impairment;Balance Impaired;Safety DeficitsPatient /Caregiver Goals: Go HomeGoals for Plan of Care:Rolling with: Verbal Cues OnlyTransfer supine to/from sit with: Stand By AssistanceTransfer sit to/from stand with: Stand By AssistanceAmbulate with: Stand By AssistanceDistance: 50'x2 with appropriate safety and sequencing without LOBDevice: Wheeled WalkerProgress Toward Goals: Progressing as expectedRehab Potential: ExcellentPLAN:Treatment Frequency (times per week): 5 (2-5) Current admissionTreatment Interventions: Education;Joint Mobility;Strengthening;Functi onalMobility Training;Balance Training;Neuromuscular Re-educationPlan of Care developed with: PatientTREATMENT INTERVENTIONS:Therapy Diagnosis: Reduced mobility-otherInterventions Provided: Therapeutic Exercise (78640);Gait Training(31245);Neuromuscular Reeducation (94284);Therapeutic Activity (11708)Therapeutic Exercise (46846) Treatment Minutes: 121 unitSkilled Intervention(s): Instruction in therapeutic exercise:Patient completed general strengthening exercises in chair (ankle pump,quad set, gluteal set, long arc quad, marching, hip adductor squeeze) x15 reps bilateral lower extremity, with minimal cueing for controllingeccentric muscle contraction.Exercise handout issue with instruction provided for performing 2-3x/dayTherapeutic Activity (84827) Treatment Minutes: 60 unitsSkilled Intervention(s): Instructed patient in supine to sit pushing withupper extremities to sit upInstruction in sit to and from stand technique with proper hand placementand body positioning at edge of bed/chair ( performing several repetitionsfrom various surfaces) minimal cueing provided for hand placement.Gait Training (72218) Treatment Minutes: 151 unitSkilled Intervention(s): Instruction in use of wheeled walker equipment,cues for increasing base of support for better stability especially withchange in direction/turning 180 degree. Instruction provided inmaintaining up right posture with forward gaze for increased safety toavoid obstacles within room and in hallway.Demonstrated decreased in speed with gait deviations with turning headleft/right/up/down and very little change in acceleration when instructedto increase speed.Neuromuscular Re-Education (52356) Treatment Minutes: 101 unitSkilled Intervention(s): Standing balance activities: completed functionalreaching within wheeled walker x 8 reps with each upper extremity withtherapist providing facilitation for trunk control/balance. Instructedstepping strategy with loss of balance.Performed sharpened romberg with eyes open achieved ~24 seconds and eyesclosed achieved ~13 seconds after multiple attempts.Total Timed Code Treatment Minutes: 43Total Treatment Time (minutes): 43SUBJECTIVE:Current Hospital Course: Chart reviewed and no significant medical updatesrelevant to therapy were notedReason for Physical Therapy Consult : PT evaluationRelevant Past Medical History: trauma MVAPatient Report: C/O itching at incision, but no pain at this time.Oriented x 2 Not to date. Very pleasant and agreeable to therapy.Home EnvironmentPatient Lives With: Significant OtherAssistance Available: multimedia project manager (spouse works)Prior Functional Level: Within Functional Limits (reports increasingdifficulty the past 2 weeks due to pain)OBJECTIVE:Mini Cog Score: 3 (03/16/18 1005)CURRENT FUNCTIONAL STATUS:Current Functional Mobility Assist Level Additional InformationRolling Contact Guard AssistanceSupine to Sit Minimal AssistanceSit to Supine Minimal AssistanceScootingSit to Stand Minimal AssistanceStand to Sit Minimal AssistanceBed to ChairToilet/CommodeGait Minimal Assistance Gait Device: Wheeled Walker Gait Distance (feet): 35ft intervalsStairsCurb StepCar TransferGeneral Gait Deviations: Lela decreased;Step length decreased;NarrowBase of Support;Difficulty changing direction/turning;Non-functio nal gaitspeedBalance: Static SittingStatic Sitting Balance: SupervisionStatic Standing Balance: Contact Guard AssistanceDynamic Standing Balance: Minimal AssistanceFunctional Performance TestFunctional PerformanceTest: Modified 4-Item Dynamic Gait Index (withwheeled walker )Gait on level surface: 2Gait with speed changes: 2Horizontal head turns: 2Vertical head turns: 2Total Score: 8Please see discipline specific clinical documentation flowsheet forcomplete details for this therapy evaluation/treatment.SIGNATUR E: Stanley Rhodes PTA PATIENT NAME: Antione JACOBS: March 20, 2018 : 9:20 AM PAGER/CONTACT #: [phone] Normal [facility] Activated PTTon 03-19-2018 aPTT Coag time (Bld) 25.2 s Normal 22.0-34.0 [facility] Comment on above: Performed By: #### A MY ####[facility] [place] [address] Basic Panelon 03-19-2018 Creatinine mass conc 0.86 mg/dL Normal 0.51-0.95 [facility] Comment on above: Performed By: #### A MY ####[address] [address] Glucose mass conc 98 mg/dL Normal 70-99 [facility] Comment on above: Performed By: #### A MY ####[place] [address] Urea nitrogen mass conc 10 mg/dL Normal 7-18 [facility] Comment on above: Performed By: #### A MY ####[address] [address] Anion gap 3 molar conc 11 mmol/L Normal 8-16 [facility] Comment on above: Performed By: #### A MY ####[address] [address] Calcium mass conc 9.2 mg/dL Normal 8.5-10.1 [facility] Comment on above: Performed By: #### A MY ####[address] [address] CO2 molar conc 28 mmol/L Normal 21-32 [facility] Comment on above: Performed By: #### A MY ####[place] [address] Chloride molar conc 103 mmol/L Normal 98-107 [facility] Comment on above: Performed By: #### A MY ####[address] [address] Potassium molar conc 3.6 mmol/L Normal 3.5-5.1 [facility] Comment on above: Performed By: #### A MY ####[place] [address] Sodium molar conc 138 mmol/L Normal 136-145 [facility] Comment on above: Performed By: #### A MY ####[place] [address] Hemogramon 03-19-2018 Erythrocyte distribution width Auto Ratio (RBC) 13.3 % Normal 11.7-14.4 [facility] Comment on above: Performed By: #### A MY ####[place] [address] Hematocrit Auto Volume Fraction (Bld) 33.4 % Low 34.1-44.9 [facility] Comment on above: Performed By: #### A MY ####[place] [address] Hemoglobin mass conc (Bld) 11.0 g/dL Low 11.2-15.7 [facility] Comment on above: Performed By: #### A MY ####[place] [address] MCH Auto Entitic mass (RBC) 28.3 pg Normal 25.6-32.2 [facility] Comment on above: Performed By: #### A MY ####[place] [address] MCHC Auto mass conc (RBC) 32.9 % Normal 31.6-34.8 [facility] Comment on above: Performed By: #### A MY ####[place] [address] MCV Auto Entitic volume (RBC) 85.9 fL Normal 79.4-94.8 [facility] Comment on above: Performed By: #### A MY ####[place] [address] Platelet mean volume Auto Entitic volume (Bld) 10.3 fL Normal 9.4-12.3 [facility] Comment on above: Performed By: #### A MY ####[place] [address] Platelets Auto #/vol (Bld) 496 thou/cmm High 182-369 [facility] Comment on above: Performed By: #### A MY ####[place] [address] RBC Auto #/vol (Bld) 3.89 mil/cmm Low 3.93-5.22 [facility] Comment on above: Performed By: #### A MY ####[place] [address] RDW SD 41.9 fl Normal 36.4-46.3 [facility] Comment on above: Performed By: #### A MY ####[place] [address] WBC Auto #/vol (Bld) 10.65 thou/cmm High 3.98-10.04 [facility] Comment on above: Performed By: #### A MY ####[place] [address] MDRD GFRon 03-19-2018 GFR/1.73 sq M predicted among non-blacks MDRD vol rate/area (S/P/Bld) mL/min/{1.73_m2} Normal >60mL/min/ 1.73m2 [facility] Comment on above: Result Comment: If t he patient is , multiply the result by 1.210. Performed By: #### A MY ####[place] [address] Magnesium Bloodon 03-19-2018 Magnesium mass conc 1.9 mg/dL Normal 1.6-2.6 [facility] Comment on above: Performed By: #### A MY ####[place] [address] PROGRESSon 03-19-2018 Protein mass conc HNO ID: [id number] thor: Godwin AntonioarianService: NeurosurgeryAuthor Type: PhysicianType: Progress NotesFiled: 03/19/2018 11:05 AMNote Text:PROGRESS NOTE NEUROSURGERYSERVICE DATE: 03/19/2018SERVICE TIME: 11:04 AMSubjectiveINTERVAL HPIcontinues to complain of general fatigue. Denies any headaches. Denies anyneurological deficits.Current hospital medications:levETIRAcetam 1,000 mg tab(s) (KEPPRA) 1,000 mg ORAL BIDlabetalol 10 mg injection syringe (NORMODYNE) 10 mg INTRAVENOUS q 4 H PRNmetoprolol tartrate (short acting) 12.5 mg tab(s) (LOPRESSOR) 12.5 mg ORALBIDdocusate sodium 100 mg cap(s) (COLACE) 100 mg ORAL BID PRNbisacodyl 10 mg suppository (DULCOLAX) 10 mg RECTAL DAILY PRNNaCl 0.9% iv infusion 5-30 mL/hr INTRAVENOUS CONTINUOUSondansetron (PF) 4 mg injection (ZOFRAN) 4 mg INTRAVENOUS q [address] mg tab(s) (PROTONIX) 40 mg ORAL DAILY (6 AM)oxyCODONE-acetaminophen 5-325 mg 1-2 tablet (PERCOCET) 1-2 tablet ORAL q 4H PRNatorvastatin 20 mg tab(s) (LIPITOR) 20 mg ORAL AT BEDTIMEfamotidine 20 mg tab(s) (PEPCID) 20 mg ORAL DAILYPARoxetine 20 mg tab(s) (PAXIL) 20 mg ORAL DAILYObjectiveAlert, Oriented to Person, Place, TimeEOMIPERRLFace SymmetricTongue MidlineMAESNo DriftVITAL SIGNS 24 HOUR REVIEW:Patient Vitals for the past 24 hrs: BP Temp Temp src Pulse Resp [id number]/19/18 0900 100/62 37.5 ?C (99.5 ?F) Oral 60 18 98 %03/19/18 0335 111/72 37 ?C (98.6 ?F) Oral 80 18 99 %03/18/18 2356 107/68 37 ?C (98.6 ?F) Oral 83 18 99 %03/18/18 2021 114/69 37.3 ?C (99.1 ?F) Oral 104 18 95 %03/18/18 1600 119/69 37.3 ?C (99.1 ?F) - 80 18 95 %03/18/18 1230 117/68 37 ?C (98.6 ?F) Oral 77 18 100 %LABS:CBC, Coags, BMP, Mg, PhosRecent Labs 316 333 540WBC 10.65* 10.78* 11.49*HB 11.0* 10.3* 11.1*HCT 33.4* 30.7* 35.0PLT 496* 420* 409*INR 0.86 0.93 0.87APTT 25.2 25.2 24.4NA 138 138 141K 3.6 3.2* 3.7CHLOR 103 104 110*CO2 28 28 26BUN 10 9 12CREAT 0.86 0.81 0.87GLUC 98 100* 84CA 9.2 8.6 8.5MG 1.9 1.8 2.0DATA:Diagnostic tests reviewed for today's visit:Most recent labs and imaging results.Assessment/PlanActive Problems: Subdural hematoma (HCC) POA: Yes Assessment AND Plan: she appears to be doing well from a subduralevacuation standpoint. However she continues to complain of fatigue andfeels unsafe to go home. She is concerned that she lives by herself andthat she does not have the appropriate hole. We will ask care managementto see if she is a candidate for placement.Resolved Problems: * No resolved hospital problems. *Medication and Non-Pharmacologic VTE Prophylaxis/Cqkqbdmglhpypa77/ 31/18 1030 vte pharmacologic prophylaxis contraindicated ([place])03/16/18 1030 pneumatic compression stockings ([place])03/15/18 1445 vte pharmacologic prophylaxis contraindicated [place])03/14/18 1700 pneumatic compression stockings [place])VTE Prophylaxis: VTE prophylaxis appropriateSIGNATURE: Godwin Ramirez MD PATIENT NAME: Antione JACOBS: March 19, 2018 : 11:04 AM PAGER/CONTACT #: [phone] Normal [facility] Protimeon 03-19-2018 INR Coag RelTime (PPP) 0.86 {INR} Normal [facility] Comment on above: Result Comment: Mikel dard Therapy 2.0-3.0High Dose 2.5-3.5 Performed By: #### A MY ####[place] [address] Prothrombin time (PT) Coag time (PPP) 9.4 s Normal 9.3-11.9 [facility] Comment on above: Performed By: #### A MY ####[facility] [place] [address] Activated PTTon 03-18-2018 aPTT Coag time (Bld) 25.2 s Normal 22.0-34.0 [facility] Comment on above: Performed By: #### L IP ####[facility] [place] [address] Basic Panelon 03-18-2018 Creatinine mass conc 0.81 mg/dL Normal 0.51-0.95 [facility] Comment on above: Performed By: #### L IP ####[place] [address] Urea nitrogen mass conc 9 mg/dL Normal 7-18 [facility] Comment on above: Performed By: #### L IP ####[place] [address] Anion gap 3 molar conc 9 mmol/L Normal 8-16 [facility] Comment on above: Performed By: #### L IP ####[place] [address] Calcium mass conc 8.6 mg/dL Normal 8.5-10.1 [facility] Comment on above: Performed By: #### L IP ####[place] [address] CO2 molar conc 28 mmol/L Normal 21-32 [facility] Comment on above: Performed By: #### L IP ####[facility] [place] [address] Glucose mass conc 100 mg/dL High 70-99 [facility] Comment on above: Performed By: #### L IP ####[place] [address] Chloride molar conc 104 mmol/L Normal 98-107 [facility] Comment on above: Performed By: #### L IP ####[place] [address] Potassium molar conc 3.2 mmol/L Low 3.5-5.1 [facility] Comment on above: Performed By: #### L IP ####[facility] [place] [address] Sodium molar conc 138 mmol/L Normal 136-145 [facility] Comment on above: Performed By: #### L IP ####[place] [id number] CASE MANAGEMon 03-18-2018 CASE MANAGEM HNO ID: [id number] thor: Jeannie (Rn) Herminia, RNService: Care ManagementAuthor Type: Registered NurseType: Care Mgt Progress NoteFiled: 03/18/2018 9:21 AMNote Text:CARE MANAGEMENT PROGRESS NOTESERVICE DATE: 03/18/2018SERVICE TIME:9:18 A.M.Spoke with patient's nurse to let her know [facility] Tuesday per the note inAllscripts. RN will relay this message to the doctor covering patient. LOS: 4 daysSIGNATURE: Jeannie Hope RN PATIENT NAME: Antione FERNANDEZATE: March 18, 2018 : 9:18 AM PAGER/CONTACT #: [phone] Normal [facility] Hemogramon 03-18-2018 Erythrocyte distribution width Auto Ratio (RBC) 13.3 % Normal 11.7-14.4 [facility] Comment on above: Performed By: #### L IP ####[place] [address] Hematocrit Auto Volume Fraction (Bld) 30.7 % Low 34.1-44.9 [facility] Comment on above: Performed By: #### L IP ####[place] [address] Hemoglobin mass conc (Bld) 10.3 g/dL Low 11.2-15.7 [facility] Comment on above: Performed By: #### L IP ####[place] [address] MCH Auto Entitic mass (RBC) 28.6 pg Normal 25.6-32.2 [facility] Comment on above: Performed By: #### L IP ####[facility] [place] [address] MCHC Auto mass conc (RBC) 33.6 % Normal 31.6-34.8 [facility] Comment on above: Performed By: #### L IP ####[place] [address] MCV Auto Entitic volume (RBC) 85.3 fL Normal 79.4-94.8 [facility] Comment on above: Performed By: #### L IP ####[place] [address] Platelet mean volume Auto Entitic volume (Bld) 10.4 fL Normal 9.4-12.3 [facility] Comment on above: Performed By: #### L IP ####[place] [address] Platelets Auto #/vol (Bld) 420 thou/cmm High 182-369 [facility] Comment on above: Performed By: #### L IP ####[place] [address] RBC Auto #/vol (Bld) 3.60 mil/cmm Low 3.93-5.22 [facility] Comment on above: Performed By: #### L IP ####[place] [address] RDW SD 41.5 fl Normal 36.4-46.3 [facility] Comment on above: Performed By: #### L IP ####[place] [address] WBC Auto #/vol (Bld) 10.78 thou/cmm High 3.98-10.04 [facility] Comment on above: Performed By: #### L IP ####[place] [address] MDRD GFRon 03-18-2018 GFR/1.73 sq M predicted among non-blacks MDRD vol rate/area (S/P/Bld) mL/min/{1.73_m2} Normal >60mL/min/ 1.73m2 [facility] Comment on above: Result Comment: If t he patient is , multiply the result by 1.210. Performed By: #### L IP ####[facility] [place], [place] [address] Magnesium Bloodon 03-18-2018 Magnesium mass conc 1.8 mg/dL Normal 1.6-2.6 [facility] Comment on above: Performed By: #### L IP ####[facility] [place], [place] [address] PROGRESSon 03-18-2018 Protein mass conc HNO ID: [id number] thor: Godwin AntonioarianService: NeurosurgeryAuthor Type: PhysicianType: Progress NotesFiled: 03/18/2018 11:13 AMNote Text:PROGRESS NOTE NEUROSURGERYSERVICE DATE: 03/18/2018SERVICE TIME: 11:13 AMSubjectiveINTERVAL HPIStable overnight. Reports some mild headache.Current hospital medications:levETIRAcetam 1,000 mg tab(s) (KEPPRA) 1,000 mg ORAL BIDlabetalol 10 mg injection syringe (NORMODYNE) 10 mg INTRAVENOUS q 4 H PRNmetoprolol tartrate (short acting) 12.5 mg tab(s) (LOPRESSOR) 12.5 mg ORALBIDdocusate sodium 100 mg cap(s) (COLACE) 100 mg ORAL BID PRNbisacodyl 10 mg suppository (DULCOLAX) 10 mg RECTAL DAILY PRNNaCl 0.9% iv infusion 5-30 mL/hr INTRAVENOUS CONTINUOUSondansetron (PF) 4 mg injection (ZOFRAN) 4 mg INTRAVENOUS q [address] mg tab(s) (PROTONIX) 40 mg ORAL DAILY (6 AM)oxyCODONE-acetaminophen 5-325 mg 1-2 tablet (PERCOCET) 1-2 tablet ORAL q 4H PRNatorvastatin 20 mg tab(s) (LIPITOR) 20 mg ORAL AT BEDTIMEfamotidine 20 mg tab(s) (PEPCID) 20 mg ORAL DAILYPARoxetine 20 mg tab(s) (PAXIL) 20 mg ORAL DAILYObjectiveAlert, Oriented to Person, Place, TimeEOMIPERRLFace SymmetricTongue MidlineMAESNo DriftVITAL SIGNS 24 HOUR REVIEW:Patient Vitals for the past 24 hrs: BP Temp Temp src Pulse Resp XiD96603/18/18 0700 124/67 36.6 ?C (97.9 ?F) Oral 78 17 99 %03/18/18 0247 129/76 36.6 ?C (97.9 ?F) Oral 85 18 100 %03/17/18 2335 116/74 36.5 ?C (97.7 ?F) Oral 88 17 96 %03/17/18 1939 139/81 37 ?C (98.6 ?F) Oral 91 18 97 %03/17/18 1630 125/62 37.1 ?C (98.8 ?F) Oral 73 18 99 %03/17/18 1200 117/69 - - 69 15 96 %LABS:CBC, Coags, BMP, Mg, PhosRecent Labs 03/17/1805WBC 10.78* 11.49* 14.74*HB 10.3* 11.1* 11.6HCT 30.7* 35.0 35.6PLT 420* 409* 457*INR 0.93 0.87 0.91APTT 25.2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 (limited by headache)Dressing Upper Body Minimal AssistanceDressing Lower Body Minimal AssistanceToileting Minimal Assistance (sim)Instrumental Activities of Daily Living Assist LevelMeal/Beverage PrepLight CleaningLaundryMedication Management with StrategiesFunctional Mobility Assist LevelRollingSupine to Sit Minimal AssistanceSit to Supine Minimal AssistanceScootingSit to Stand Contact Guard AssistanceStand to Sit Contact Guard AssistanceBed to ChairToilet/Commode Minimal Assistance (simulated)Functional Mobility Minimal Assistance Wheeled WalkerPlease see discipline specific clinical documentation flowsheet forcomplete details for this therapy evaluation/treatment.SIGNATUR E: YAHAIRA Zee/Elyssa PATIENT NAME: Antione FERNANDEZATE: March 17, 2018 : 3:37 PM PAGER: [phone] [facility] THERAPY NT HNO ID: [id number] thor: Mckenzie (Pt) EduardomService: Physical TherapyAuthor Type: Physical TherapistType: Therapy (PT/OT/Speech/Resp)Filed: 03/17/2018 2:42 PMNote Text:Physical Therapy TreatmentSERVICE DATE: 03/17/2018SERVICE TIME: 1353 to 1415ROOM: [id number] Discharge Disposition: Acute RehabJustification For Post Acute Needs: Anticipate patient will tolerate 3hours of daily therapy [facility];Anticipated community discharge;Good premorbid functionalstatus;Living the community premorbidly;Willing to participate;Anticipatethat patient will require daily (5x/wk) skilled therapy in a post-acutecity emergency hospitality setting at the time of acute hospital dischargeRecommended Discharge Equipment: (Defer to receiving facility)PT Recommendations to Nursing: Ambulate with device;To bathroom;Inhalls;OOB for Meals;With assist of 1 personDevice: Wheeled WalkerPT 6 Clicks Score: 17Precautions/Activity Restrictions: Crani;Fall Risk;Lines/Tubes/DrainsPrecau tion/Activity Restriction Comments: Hemovac in placeASSESSMENT :Patient progressing with goals as patient able to ambulate furtherdistance today vs 03/16/18. Patient continues to demo deficits instrength, endurance, balance, safety awareness. Patient would benefitfrom continued therapy at an acute rehab facility to maximize independenceand safety awareness prior to discharge home. Patient was premorbidlyindependent with all functional mobility.Patient Disposition at Start of Session: Supine in Bed;Family PresentPatient Disposition at End of Session: OOB in Chair;Call Couch in ReachTolerance Limited By PainPhysical Therapy Problem List: Decreased Activity Tolerance;DecreasedStrength;F unctional Mobility Impairment;Balance Impaired;Safety DeficitsPatient /Caregiver Goals: Go HomeGoals for Plan of Care:Rolling with: Verbal Cues OnlyTransfer supine to/from sit with: Stand By AssistanceTransfer sit to/from stand with: Stand By AssistanceAmbulate with: Stand By AssistanceDistance: 50'x2 with appropriate safety and sequencing without LOBDevice: Wheeled WalkerProgress Toward Goals: Progressing as expectedRehab Potential: ExcellentPLAN:Treatment Frequency (times per week): 5 (2-5) Current admissionTreatment Interventions: Education;Joint Mobility;Strengthening;Functi onalMobility Training;Balance Training;Neuromuscular Re-educationPlan of Care developed with: PatientTREATMENT INTERVENTIONS:Therapy Diagnosis: Reduced mobility-otherInterventions Provided: Gait Training (87459);Therapeutic Activity(37270);Therapeutic Exercise (98766)Therapeutic Exercise (95023) Treatment Minutes: 101 unitSkilled Intervention(s): Instruction in therapeutic exerciseFacilitation of muscle control, optimal recruitment and alignment withverbal and tatile cuesPatient completed general strengthening exercises in recliner chair (anklepump, quad set, gluteal set, heel slide, hip abd/add, straight leg raise,long arc quad, marching, hip adductor squeeze) x 10-12 reps bilaterallower extremity.Therapeutic Activity (66428) Treatment Minutes: 81 unitSkilled Intervention(s): Instructed patient in supine to sit pushing withupper extremities to sit upInstruction in sit to stand technique with proper hand placement and bodypositioning at edge of bed/chairInstruction in stand to sit technique with lower extremities touchingchair/bed and reaching back for surfaceEducation regarding importance of OOB, to chair, ambulate in room toregulate BP, improve lung function and overall blood flow, and to aid withbodily functions somewhat dependent on gravity.Patient complained of increased dizziness after supine to sit. Patientrequired increased time at edge of bed for dizziness to dissipate.Gait Training (39164) Treatment Minutes: 50 unitsSkilled Intervention(s): Instruction in sit to stand technique with properhand placement and body positioning at edge of bed/chair, Instruction instand to sit technique with LE's touching chair/bed and reaching back forsurfaceEducation on safety during functional mobility. I.e. Importance of nonskidsocks, being aware of medical lines, increasing time between positionchangesTotal Timed Code Treatment Minutes: 23Total Treatment Time (minutes): 23SUBJECTIVE:Current Hospital Course: Chart reviewed and no significant medical updatesrelevant to therapy were notedReason for Physical Therapy Consult : PT evaluationRelevant Past Medical History: trauma MVAPatient Report: 03/26 pain in head/incision. Spouse present. Agreeable toPT. I want to get back to where I can play with my [employer] EnvironmentPatient Lives With: Significant OtherAssistance Available: multimedia project manager (spouse works)Prior Functional Level: Within Functional Limits (reports increasingdifficulty the past 2 weeks due to pain)OBJECTIVE:Mini Cog Score: 3 (03/16/18 1005)CURRENT FUNCTIONAL STATUS:Current Functional Mobility Assist Level Additional InformationRolling Minimal AssistanceSupine to Sit Minimal AssistanceSit to Supine Minimal AssistanceScootingSit to Stand Minimal AssistanceStand to Sit Minimal AssistanceBed to ChairToilet/CommodeGait Minimal Assistance Gait Device: Hand Held Assist Gait Distance (feet): 10ft x 2StairsCurb StepCar TransferGeneral Gait Deviations: Narrow Base of Support;Arm swingdecreased;Lela decreased;Step length decreased;Difficulty changingdirection/turning;Non -functional gait speedBalance: Static Sitting;Static Standing;Dynamic StandingStatic Sitting Balance: SupervisionStatic Standing Balance: Minimal AssistanceDynamic Standing Balance: Minimal AssistancePlease see discipline specific clinical documentation flowsheet forcomplete details for this therapy evaluation/treatment.DANAE Ontiveros: Mckenzie Witt, PT PATIENT NAME: Antione JACOBS: March 17, 2018 : 2:31 PM PAGER/CONTACT #: [phone] [facility] Activated PTTon 03-16-2018 aPTT Coag time (Bld) 24.0 s Normal 22.0-34.0 [facility] Comment on above: Performed By: #### A PTT ####[facility] [place] [address] Basic Panelon 03-16-2018 Creatinine mass conc 0.59 mg/dL Normal 0.51-0.95 [facility] Comment on above: Performed By: #### A PTT ####[facility] [place] [address] Anion gap 3 molar conc 12 mmol/L Normal 8-16 [facility] Comment on above: Performed By: #### A PTT ####[facility] [place], [place] [address] CO2 molar conc 21 mmol/L Normal 21-32 [facility] Comment on above: Performed By: #### A PTT ####[facility] [place], [place] [address] Glucose mass conc 88 mg/dL Normal 70-99 [facility] Comment on above: Performed By: #### A PTT ####[facility] [place], [place] [address] Urea nitrogen mass conc 12 mg/dL Normal 7-18 [facility] Comment on above: Performed By: #### A PTT ####[facility] [place], [place] [address] Calcium mass conc 8.7 mg/dL Normal 8.5-10.1 [facility] Comment on above: Performed By: #### A PTT ####[place] [address] Chloride molar conc 109 mmol/L High 98-107 [facility] Comment on above: Performed By: #### A PTT ####[place] [address] Potassium molar conc 5.4 mmol/L High 3.5-5.1 [facility] Comment on above: Performed By: #### A PTT ####[place] [address] Sodium molar conc 137 mmol/L Normal 136-145 [facility] Comment on above: Performed By: #### A PTT ####[place] [address] Hemogramon 03-16-2018 Erythrocyte distribution width Auto Ratio (RBC) 13.2 % Normal 11.7-14.4 [facility] Comment on above: Performed By: #### A PTT ####[place] [address] Hematocrit Auto Volume Fraction (Bld) 35.6 % Normal 34.1-44.9 [facility] Comment on above: Performed By: #### A PTT ####[place] [address] Hemoglobin mass conc (Bld) 11.6 g/dL Normal 11.2-15.7 [facility] Comment on above: Performed By: #### A PTT ####[place] [address] MCH Auto Entitic mass (RBC) 28.5 pg Normal 25.6-32.2 [facility] Comment on above: Performed By: #### A PTT ####[place] [address] MCHC Auto mass conc (RBC) 32.6 % Normal 31.6-34.8 [facility] Comment on above: Performed By: #### A PTT ####[place] [address] MCV Auto Entitic volume (RBC) 87.5 fL Normal 79.4-94.8 [facility] Comment on above: Performed By: #### A PTT ####[place] [address] Platelet mean volume Auto Entitic volume (Bld) 10.5 fL Normal 9.4-12.3 [facility] Comment on above: Performed By: #### A PTT ####[place] [address] Platelets Auto #/vol (Bld) 457 thou/cmm High 182-369 [facility] Comment on above: Performed By: #### A PTT ####[place] [address] RBC Auto #/vol (Bld) 4.07 mil/cmm Normal 3.93-5.22 [facility] Comment on above: Performed By: #### A PTT ####[place] [address] RDW SD 42.3 fl Normal 36.4-46.3 [facility] Comment on above: Performed By: #### A PTT ####[place] [address] WBC Auto #/vol (Bld) 14.74 thou/cmm High 3.98-10.04 [facility] Comment on above: Performed By: #### A PTT ####[address] [address] MDRD GFRon 03-16-2018 GFR/1.73 sq M predicted among non-blacks MDRD vol rate/area (S/P/Bld) mL/min/{1.73_m2} Normal >60mL/min/ 1.73m2 [facility] Comment on above: Result Comment: If t he patient is , multiply the result by 1.210. Performed By: #### A PTT ####[address] [address] Magnesium Bloodon 03-16-2018 Magnesium mass conc 1.8 mg/dL Normal 1.6-2.6 [facility] Comment on above: Performed By: #### A PTT ####[address] [address] NURSING PROGon 03-16-2018 Protein mass conc HNO ID: [id number] thor: Sourav WayRn) CORY Loervice: NursingAuthor Type: Registered NurseType: Nursing Progress NoteFiled: 03/16/2018 1:40 PMNote Text: Nursing Progress NotePatient Name: Antione SANCHEZRN: [id number] Location: [place] [address]/[place] [address]*____ Daily Note: Pt received from Pacu from ROSE Dawn. Pt stable and in [id number].This note was completed by: Sourav Lo RN [facility] Protein mass conc HNO ID: [id number] Author: Nereyda WayRn) ROSE Salomon Service: Nursing Author Type: Registered Nurse Type: Nursing Progress Note Filed: 03/16/2018 11:43 AM Note Text: Report called to NINO Benjamin RN, and Pt transferred to [facility] via bed with monitor and RN [facility] Protein mass conc HNO ID: [id number] Author: Nereyda WayRn) ROSE Salomon Service: Nursing Author Type: Registered Nurse Type: Nursing Progress Note Filed: 03/16/2018 10:04 AM Note Text: P.T. And O.T. Visiting Pt. [facility] PROGRESSon 03-16-2018 Protein mass conc HNO ID: [id number] thor: Jarred LoaizasmanService: NeurologyAuthor Type: PhysicianType: Progress NotesFiled: 03/16/2018 4:31 PMNote Text:NEURO ICU - PROGRESS NOTESERVICE DATE: 03/16/2018SERVICE TIME: 1:37PMObjectiveDETAILED REVIEWVITAL SIGNS (last 24hrs min/max):Temp Av.3 ?C (97.3 ?F) Min: 36 ?C (96.8 ?F) Max: 36.7 ?C (98.1 ?F)Pulse Av.4 Min: 56 Max: 107Cuff BP Min: 93/62 Max: 120/78Resp Av.8 Min: 9 Max: 28SpO2 Av.4 % Min: 96 % Max: 100 %No Data RecordedNo Data RecordedNo Data RecordedNo Data RecordedNo Data RecordedINTAKE/OUTPUT:Intake/ Output Summary (Last 24 hours) at 03/16/18 1337Last data filed at 03/16/18 1145 Gross per 24 hourIntake 2970 mlOutput 3045 mlNet -75 mlCSF: N/AMIVF: KVOPO/TF: POFREE WATER: N/ABM: Has the patient had a BM in the last 24 hours? No.PHYSICAL EXAM AND PERTINENT DATANeuro: AOx3, some mild amnesia from yesterday, strength 5/5 in allextremities, sensation intact in all 4 extremities, CN2-12 intactCV: RRR, no murmursPulm: CTABGI/: Soft, nondistendedSkin/Extremities: Edema- No Peripheral pulses- Present all extremitiesWounds/Drsgs- No Breakdown- NoCurrent Facility-Administered Medications:potassium chloride 80-120 mEq oral liquid 80-120 mEq ORAL/FEEDING TUBE PRNpotassium chloride iv piggyback 20 mEq in sterile water 100 mL 20 mEqINTRAVENOUS PRNmagnesium sulfate in water 2 g in sterile water 50 ml 2 g INTRAVENOUS PRNsodium phosphate 45 mmol in NaCl 0.9% 250 mL 45 mmol INTRAVENOUS PRNcalcium gluconate 4 g in NaCl 0.9% 250 mL 4 g INTRAVENOUS PRNdocusate sodium 100 mg cap(s) (COLACE) 100 mg ORAL BID PRNbisacodyl 10 mg suppository (DULCOLAX) 10 mg RECTAL DAILY PRNniCARdipine 40 mg in NaCl 0.9% 200 mL infusion (CARDENE) 2.5-15 mg/hrINTRAVENOUS CONTINUOUSlabetalol 10 mg injection syringe (NORMODYNE) 10 mg INTRAVENOUS q 2 H PRNNaCl 0.9% iv infusion 75 mL/hr INTRAVENOUS CONTINUOUSondansetron (PF) 4 mg injection (ZOFRAN) 4 mg INTRAVENOUS q [address] 40 mg tab(s) (PROTONIX) 40 mg ORAL DAILY (6 AM)oxyCODONE-acetaminophen 5-325 mg 1-2 tablet (PERCOCET) 1-2 tablet ORAL q 4H PRNceFAZolin iv piggyback 1 g in D5W (iso-osmotic) 50 mL (ANCEF) 1 gINTRAVENOUS q 8 HRlevETIRAcetam iv piggyback 1,000 mg in NaCl (iso-osmotic) 100 mL (KEPPRA)1,000 mg INTRAVENOUS BIDatorvastatin 20 mg tab(s) (LIPITOR) 20 mg ORAL AT BEDTIMEmetoprolol tartrate (short acting) 25 mg tab(s) (LOPRESSOR) 25 mg ORAL BIDfamotidine 20 mg tab(s) (PEPCID) 20 mg ORAL DAILYPARoxetine 20 mg tab(s) (PAXIL) 20 mg ORAL DAILYHYDROmorphone 0.5 mg injection (DILAUDID) 0.5 mg INTRAVENOUS q 2 H PRNLABS: CBC, Coags, BMP, Mg, PhosRecent Labs 430WBC 14.74*HB 11.6HCT 35.6PLT 457*INR 0.91APTT 24.0NA 137K 5.4*CHLOR 109*CO2 21BUN 12CREAT 0.59GLUC 88CA 8.7MG 1.8DATA:Diagnostic tests reviewed for today's visit:Most recent labs and imaging results.Assessment/PlanNo Patient Care Coordination Note on file.Neuro:s/p hemicraniectomy POD #0-neurologically intact-continue Keppra 1000 BID-continue ancef?Cardiovascular: BP Management: SBP < 140 Nicardipine PRN for SBP >= 140 Labetalol for SBP >=140?Pulmonary: N/A?Renal/Electrolytes: Linda Present: Yes IV Fluids: 75mL/hr NS ICU electrolyte replacement protocol?GI/Nutrition Swallow Assessment: Complete prior to diet Dysphagia Screen: Passed GI Prophylaxis: At home Current Diet:Orders Placed This Encounter DIET REGULAR?Endo: Glucose Controlled: Yes?Infectious Disease: N/A?Heme/VTE: Calf SCD's -no chemoprophylaxis?Skin/Extremi ties: No skin ulcers present.?Lines/Access: PIV?Medication and Non-Pharmacologic VTE Prophylaxis/Cjdorbdqiatdpx57/ 31/18 1030 vte pharmacologic prophylaxis contraindicated ([place])03/16/18 1030 pneumatic compression stockings ([place])03/15/18 1445 vte pharmacologic prophylaxis contraindicated ([place])03/14/18 1700 pneumatic compression stockings ([place])VTE Prophylaxis: Contraindicated bleedingPATIENT CHECKLIST? Are restraints necessary: No? VTE prophylaxis administered: Yes. Mechanical- Yes. Pharmacological- No.? On sedation: No? Patient on ventilatory support: No? Central line or arterial line present: No? Mckeon present: Yes. Able to D/C: No, close I/O monitoringPERSONAL INVOLVEMENT IN CARE: Reviewing initiation, responses andadjustments to therapies, coordination of care, and updating updatingfamily with Staff Physician, Dr. Lawrence.SIGNATURE: Johanna Cali MD PATIENT NAME: Antione JACOBS: March 16, 2018 : 1:37 PM PAGER/CONTACT #: [phone] STAFF ALONDRAENDElizabeth Lawrence MDDoing well so far, neuro nonfocal except mild RUE pronator drift. MonitorHemovac output. Watch for neurologic decompensation in NSICU. Plan perneurosurgery.PERSONAL INVOLVEMENT IN CARE:??Patient/Family Updated: Patient and/or family were updated regarding thegoals of care,?medical plan for the day, etl consultant recommendations,medical disposition and current medical condition/prognosis as and ifclinically indicated. All questions and concerns were answered andaddressed at this juncture. I agree with the resident MD note as above,except as otherwise indicated; my additional comments, if necessary, arein bold.?This patient has a high probability of sudden, clinically significantdeterioration, which requires the highest level of physician preparednessto intervene urgently. I managed/supervised life or organ supportinginterventions that required frequent physician assessment. I devoted myfull attention to the direct care of this patient for the amount of timeindicated below. Time I spent with family or surrogate(s) is includedonly if the patient was incapable of providing the necessary informationor participating in medical decision making. Time devoted to teaching andto any procedures I billed separately is not included.?Critical Care Documentation: The patient has the following organ/systemimpairment(s): As aboveTime spent providing critical care services: 31 minutes.?SIGNATURE: Jarred Lawrence MD PATIENT NAME: Antione FERNANDEZATE: 03/16/18 : 4:29 PM PAGER/CONTACT #: [phone] [facility] Protein mass conc HNO ID: [id number] thor: Alina Tee (Dmitriy) Mitzi Wayice: NeurosurgeryAuthor Type: Physician AssistantType: Progress NotesFiled: 03/16/2018 12:45 PMNote Text:Neurosurgery Progress NoteSERVICE DATE: 03/16/2018SUBJECTIVE:Feels 'rough' but overall improved from last few days. Amnesic to much ofthe last few days as well. Has eaten a little bit without n/v. Deniesdizziness.OBJECTIVE:Vit als:Temp (24hrs), Av.3 ?C (97.3 ?F), Min:36 ?C (96.8 ?F), Max:36.7 ?C(98.1 ?F)BP 109/66 Pulse 61 Temp 36.1 ?C (97 ?F) (Temporal Artery) Resp 12 Ht 162.6 cm (5' 4) Wt 67.1 kg (148 lb) SpO2 99% BMI 25.40kg/m?O2 Therapy: Nasal CannulaIANDO:Date 03/15/18 07 - 03/16/18 0659 03/16/18 07 - 03/17/18 0659Shift 9701-3210 2116-7029 2505-5035 24 Hour Total 9262-7649 [id number] 24 Hour TotalINTAKE PO 150 240 390 220 220 PO 150 240 390 220 220 IV 081 326 7558 2060 300 300 NS 0.9% 860 860 300 300 Cefazolin IV 50 50 100 OR Crystalloid intake (mL) 060 092 3285 Levetiracetam IV 100 100 Shift Total 517 329 8965 2450 520 520OUTPUT Urine 2634 408 0691 550 550 Tube Output ( Indwelling Urinary Catheter 03/15/18 1700 Mckeon 16Fr) 0747 485 8487 550 550 Tubes 40 20 60 15 15 Drain/Tube Output (Drain/Tube 03/15/18 1257 Subdural Right Drain #1)40 20 60 15 15 Blood 75 75 Estimated Blood loss 75 75 Shift Total 75 6047 126 9915 565 565Weight (kg) 67.1 67.1 67.1 67.1 67.1 67.1 67.1 67.1MEDICATIONSCurrent Facility-Administered Medications:potassium chloride 80-120 mEq oral liquid 80-120 mEq ORAL/FEEDING TUBE PRNpotassium chloride iv piggyback 20 mEq in sterile water 100 mL 20 mEqINTRAVENOUS PRNmagnesium sulfate in water 2 g in sterile water 50 ml 2 g INTRAVENOUS PRNsodium phosphate 45 mmol in NaCl 0.9% 250 mL 45 mmol INTRAVENOUS PRNcalcium gluconate 4 g in NaCl 0.9% 250 mL 4 g INTRAVENOUS PRNdocusate sodium 100 mg cap(s) (COLACE) 100 mg ORAL BID PRNbisacodyl 10 mg suppository (DULCOLAX) 10 mg RECTAL DAILY PRNniCARdipine 40 mg in NaCl 0.9% 200 mL infusion (CARDENE) 2.5-15 mg/hrINTRAVENOUS CONTINUOUSlabetalol 10 mg injection syringe (NORMODYNE) 10 mg INTRAVENOUS q 2 H PRNNaCl 0.9% iv infusion 75 mL/hr INTRAVENOUS CONTINUOUSondansetron (PF) 4 mg injection (ZOFRAN) 4 mg INTRAVENOUS q [address] 40 mg tab(s) (PROTONIX) 40 mg ORAL DAILY (6 AM)oxyCODONE-acetaminophen 5-325 mg 1-2 tablet (PERCOCET) 1-2 tablet ORAL q 4H PRNceFAZolin iv piggyback 1 g in D5W (iso-osmotic) 50 mL (ANCEF) 1 gINTRAVENOUS q 8 HRlevETIRAcetam iv piggyback 1,000 mg in NaCl (iso-osmotic) 100 mL (KEPPRA)1,000 mg INTRAVENOUS BIDatorvastatin 20 mg tab(s) (LIPITOR) 20 mg ORAL AT BEDTIMEmetoprolol tartrate (short acting) 25 mg tab(s) (LOPRESSOR) 25 mg ORAL BIDfamotidine 20 mg tab(s) (PEPCID) 20 mg ORAL DAILYPARoxetine 20 mg tab(s) (PAXIL) 20 mg ORAL DAILYHYDROmorphone 0.5 mg injection (DILAUDID) 0.5 mg INTRAVENOUS q 2 H PRNLabs:Recent Labs NA 137K 5.4*CHLOR 109*CO2 21BUN 12CREAT 0.59GLUC 88ANION 12CA 8.7MG 1.8WBC 14.74*HB 11.6HCT 35.6PLT 457*INR 0.91Exam:GENERAL: No distress, AlertNEURO: oriented x 3, follows all commands, msp equal and intact, no facialdroop, perrl, eomiHEENT: normocephalic, dressing dry and intact, drain intact and [id number] since surgeryLUNGS: Unlabored breathingCARDIAC: Regular rate and rhythm as aboveABDOMEN: Soft, non-tender, non-distendedEXTREMITIES: HICKMAN, No deformities, No edemaSKIN: Skin color, texture, turgor normal, No rashes or lesionsASSESSMENT AND PLAN:Active Hospital Problems Diagnosis Date Noted- Subdural hematoma (HCC) 03/14/201859 year old female pod#1 crani for sdh- neuro improved- pain better- tsfr to nsicu- continue drain- pt/otSIGNATURE: DMITRIY Cook PATIENT NAME: Antione JACOBS: March 16, 2018 : 12:38 PM Pager: [facility] Protein mass conc HNO ID: [id number] thor: Alina Tee (Dmitriy) LLOYD Wayervice: NeurosurgeryAuthor Type: Physician AssistantType: Progress NotesFiled: 03/16/2018 11:26 AMNote Text:Neurosurgery Progress NoteSERVICE DATE: 03/16/2018SUBJECTIVE:c/o head pain that is different from her prior headache. Feels like'surgical pain'. Has eaten without n/v, denies dizzinessOBJECTIVE:Vitals:Tem p (24hrs), Av.3 ?C (97.3 ?F), Min:36 ?C (96.8 ?F), Max:36.7 ?C(98.1 ?F)BP 109/68 Pulse 65 Temp 36.1 ?C (97 ?F) (Temporal Artery) Resp 11 Ht 162.6 cm (5' 4) Wt 67.1 kg (148 lb) SpO2 98% BMI 25.40kg/m?O2 Therapy: Nasal CannulaIANDO:Date 03/15/18 07 - 03/16/18 0659 03/16/18 07 - 03/17/18 0659Shift 0374-0337 8981-1955 5483-3384 24 Hour Total 7664-7496 [id number] 24 Hour TotalINTAKE PO 150 240 390 220 220 PO 150 240 390 220 220 IV 851 314 3417 2060 NS 0.9% 860 860 Cefazolin IV 50 50 100 OR Crystalloid intake (mL) 636 267 2063 Levetiracetam IV 100 100 Shift Total 955 700 4831 2450 220 220OUTPUT Urine 8758 483 6836 Tube Output ( Indwelling Urinary Catheter 03/15/18 1700 Mckeon 16Fr) 4010 375 3356 Tubes 40 20 60 Drain/Tube Output (Drain/Tube 03/15/18 1257 Subdural Right Drain #1)40 20 60 Blood 75 75 Estimated Blood loss 75 75 Shift Total 75 1830 575 2480Weight (kg) 67.1 67.1 67.1 67.1 67.1 67.1 67.1 67.1MEDICATIONSCurrent Facility-Administered Medications:potassium chloride 80-120 mEq oral liquid 80-120 mEq ORAL/FEEDING TUBE PRNpotassium chloride iv piggyback 20 mEq in sterile water 100 mL 20 mEqINTRAVENOUS PRNmagnesium sulfate in water 2 g in sterile water 50 ml 2 g INTRAVENOUS PRNsodium phosphate 45 mmol in NaCl 0.9% 250 mL 45 mmol INTRAVENOUS PRNcalcium gluconate 4 g in NaCl 0.9% 250 mL 4 g INTRAVENOUS PRNdocusate sodium 100 mg cap(s) (COLACE) 100 mg ORAL BID PRNbisacodyl 10 mg suppository (DULCOLAX) 10 mg RECTAL DAILY PRNniCARdipine 40 mg in NaCl 0.9% 200 mL infusion (CARDENE) 2.5-15 mg/hrINTRAVENOUS CONTINUOUSlabetalol 10 mg injection syringe (NORMODYNE) 10 mg INTRAVENOUS q 2 H PRNNaCl 0.9% iv infusion 75 mL/hr INTRAVENOUS CONTINUOUSondansetron (PF) 4 mg injection (ZOFRAN) 4 mg INTRAVENOUS q [address] 40 mg tab(s) (PROTONIX) 40 mg ORAL DAILY (6 AM)oxyCODONE-acetaminophen 5-325 mg 1-2 tablet (PERCOCET) 1-2 tablet ORAL q 4H PRNceFAZolin iv piggyback 1 g in D5W (iso-osmotic) 50 mL (ANCEF) 1 gINTRAVENOUS q 8 HRlevETIRAcetam iv piggyback 1,000 mg in NaCl (iso-osmotic) 100 mL (KEPPRA)1,000 mg INTRAVENOUS BIDatorvastatin 20 mg tab(s) (LIPITOR) 20 mg ORAL AT BEDTIMEmetoprolol tartrate (short acting) 25 mg tab(s) (LOPRESSOR) 25 mg ORAL BIDfamotidine 20 mg tab(s) (PEPCID) 20 mg ORAL DAILYPARoxetine 20 mg tab(s) (PAXIL) 20 mg ORAL DAILYHYDROmorphone 0.5 mg injection (DILAUDID) 0.5 mg INTRAVENOUS q 2 H PRNLabs:Recent Labs 430NA 137K 5.4*CHLOR 109*CO2 21BUN 12CREAT 0.59GLUC 88ANION 12CA 8.7MG 1.8WBC 14.74*HB 11.6HCT 35.6PLT 457*INR 0.91Exam:GENERAL: No distress, AlertNEURO: oriented x3, follows all commands, CNII-XII intactmsp grossly intactact and equalperrl at 3mm brisk, eomiSpeech clear and appropriate - no slur or droopDressing dryDrain output 10 ccHEENT: normocephalic, atraumaticLUNGS: Unlabored breathingCARDIAC: Regular rate and rhythm as aboveABDOMEN: Soft, non-tender, non-distendedEXTREMITIES: HICKMAN, No deformities, No edemaSKIN: Skin color, texture, turgor normal, No rashes or lesionsASSESSMENT AND PLAN:Active Hospital Problems Diagnosis Date Noted- Subdural hematoma (HCC) 03/14/201859 year old female SDH progressive with severe headache and ms changes- pod#1 crani for evacuation- continue drain for now- [facility]- no anticoagsSIGNATURE: DMITRIY Cook PATIENT NAME: Antione FERNANDEZATE: March 16,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 [facility] Comment on above: Performed By: #### U RIN2 ####[place] [address] Ep Cells Urine 2.0 /hpf Normal 0.0-5.0 [facility] Comment on above: Performed By: #### U RIN2 ####[place] [address] Hyaline Cast 0.0 /lpf Normal 0.0-1.0 [facility] Comment on above: Performed By: #### U RIN2 ####[place] [address] RBC,Urine 7.6 /hpf High 0.0-5.0 [facility] Comment on above: Performed By: #### U RIN2 ####[place] [address] WBC, Urine 0.9 /hpf Normal 0.0-5.0 [facility] Comment on above: Performed By: #### U RIN2 ####[place] [address] Appearance Nom (U) CLEAR Normal [facility] Comment on above: Performed By: #### U RIN2 ####[place] [address] Bilirubin Urine Negative Normal Negative [facility] Comment on above: Performed By: #### U RIN2 ####[place] [address] Color Nom (U) YELLOW Normal [facility] Comment on above: Performed By: #### U RIN2 ####[facility] [place], [place] [address] Glucose Ql (U) Negative Normal Negative [facility] Comment on above: Performed By: #### U RIN2 ####[address] [address] Hemoglobin,Urine Negative Normal Negative [facility] Comment on above: Performed By: #### U RIN2 ####[place] [address] Ketone Urine TRACE Abnormal Negative [facility] Comment on above: Performed By: #### U RIN2 ####[place] [address] Leukocytes Esterase Negative Normal Negative [facility] Comment on above: Performed By: #### U RIN2 ####[place] [address] Nitrites Urine Negative Normal Negative [facility] Comment on above: Performed By: #### U RIN2 ####[place] [address] pH Test strip (U) 7.5 [pH] Normal 5.0-8.0 [facility] Comment on above: Performed By: #### U RIN2 ####[address] [address] Protein Urine Negative Normal Negative [facility] Comment on above: Performed By: #### U RIN2 ####[place] [address] Specific [place], Ur >1.045 Abnormal 1.005-1 .03 0 [facility] Comment on above: Performed By: #### U RIN2 ####[place] [address] Urobilinogen,Ur 1.0 EU/dL Normal 0.0-1.0 [facility] Comment on above: Performed By: #### U RIN2 ####[place] [address] Urine Drug Screenon 03-03-20 Urine Amphetamine Non-detected Normal Non-Detect ed [facility] Comment on above: Performed By: #### U DRG2 ####[facility] [place], [place] [address] Urine Barbiturates Non-detected Normal Non-Detec t ed [facility] Comment on above: Performed By: #### U DRG2 ####[facility] [place], [place] [address] Urine Benzodiazepine Non-detected Normal Non-Det ect ed [facility] Comment on above: Performed By: #### U DRG2 ####[facility] [place], [place] [address] Urine Cocaine Metab Non-detected Normal Non-Dete ct ed [facility] Comment on above: Performed By: #### U DRG2 ####[facility] [place], [place] [address] Urine Opiate Non-detected Normal Non-Detect ed [facility] Comment on above: Performed By: #### U DRG2 ####[facility] [place] [address] Urine PCP Non-detected Normal Non-Detect ed [facility] Comment on above: Performed By: #### U DRG2 ####[address] [address] Urine THC Non-detected Normal Non-Detect ed [facility] Comment on above: Result Comment: Urin e Drug Cutoff LevelsUrine Amphetamine 500 ng/mLUrine Barbiturate 200 ng/mLUrine Benzodiazepines 200 ng/mLUrine Cocaine 150 ng/mLUrine Phencyclidine (PCP) 25 ng/mLUrine Opiates 300 ng/mLUrine THC 50 ng/mLThe results of these analytes are unconfirmed and reportedqualitatively as detected or non-detected relative to the cutoffvalue. Detected results indicate the sample is likely to containthe analyte. Non-detected results indicate that either the sampledoes not contain the analyte or it is present in concentrations belowthe cutoff level. This drug screen should be used for medical diagnosticpurposes only. Performed By: #### U DRG2 ####[place] [address] Lab Report: Lipid Profileon 12-08-2017 Cholesterol 201 mg/dL High 200 [facility] [employer] [facility] Work Phone: HDL Cholesterol 43 mg/dL Invalid Interpretation Code [employer] Work Phone: [phone] LDL Cholesterol 97 mg/dL Invalid Interpretation Code 0-130 [employer] Work Phone: [phone] Triglyceride 305 mg/dL High [employer] Work Phone: [phone] very low density lipoproteins 61 mg/dL High 5-40 [employer] Work Phone: [phone] Lab Report: Liver Profileon 12-08-2017 Alanine aminotransferase (ALT) 26 U/L Invalid Interpretation Code 13-56 [employer] Work Phone: [phone] Albumin 3.7 g/dL Invalid Interpretation Code 3.2-5.0 [employer] Work Phone: [phone] Alkaline phosphatase (ALP) 95 U/L Invalid Interpretation Code 45-117 [employer] Work Phone: [phone] Aspartate aminotransferase (AST) 19 U/L Invalid Interpretation Code 15-37 [employer] Work Phone: [phone] Bilirubin (direct) 0.18 mg/dL Invalid Interpretation Code 0.00-0.30 [employer] Work Phone: [phone] Bilirubin (total) 1.00 mg/dL Invalid Interpretation Code 0.20-1.00 [employer] Work Phone: [phone] Globulin 4.1 g/dL Invalid Interpretation Code 2.2-4.2 [employer] Work Phone: [phone] Protein 7.8 g/dL Invalid Interpretation Code 6.4-8.2 [employer] Work Phone: [phone] Office Visiton 06-13-2017 Dietary management education, guidance, and counseling (procedure) yes Invalid Interpretation Code [employer] Work Phone: [phone] Documentation of current medications (procedure) Done Invalid Interpretation Code [employer] Work Phone: [phone] Fall risk assessment No Invalid Interpretation Code [employer] Work Phone: [phone] Protein mass conc Done [employer] Work Phone: [phone] Tobacco smoking status NHIS Tobacco smoking status NHIS Invalid Interpretation Code [employer] Work Phone: [phone] Tobacco smoking status NHIS Never smoker [employer] Work Phone: [phone] Replaced Document: Heron [place] 06-13-2017 EKG QRS axis 24 deg [employer] Work Phone: electrocardiogram interpretation Sinus Rhythm WITHIN NORMAL LIMITS Invalid Interpretation Code [employer] Work Phone: [phone] GE use only - for [employer] import when terms are not otherwise specified 402 ms Invalid Interpretation Code [employer] Work Phone: Interpretation Sinus Rhythm WITHIN NORMAL LIMITS [employer] Work Phone: P [place] 24 deg [employer] Work Phone: P wave axis, electrocardiogram 24 deg Invalid Interpretation Code [employer] Work Phone: RI Interval 162 ms [employer] Work Phone: RI interval, electrocardiogram 162 ms Invalid Interpretation Code [employer] Work Phone: Pulse (Heart Rate) 65 /min Invalid Interpretation Code [employer] Work Phone: QRS axis, electrocardiogram 24 deg Invalid Interpretation Code [employer] Work Phone: QRS Duration 86 ms [employer] Work Phone: QRS duration, electrocardiogram 86 ms Invalid Interpretation Code [employer] Work Phone: QT Interval new path ms [employer] Work Phone: QT interval, electrocardiogram new path ms Invalid Interpretation Code [employer] Work Phone: QTc Taylor 402 ms [employer] Work Phone: T [place] 25 deg [employer] Work Phone: T wave axis, electrocardiogram 25 deg Invalid Interpretation Code [employer] Work Phone: [phone] Lab Report: Lipid Profileon 06-01-2017 Cholesterol 191 mg/dL 200 [employer] Work Phone: HDL Cholesterol 51 mg/dL [employer] Work Phone: LDL Cholesterol 94 mg/dL 0-130 [facility] Work Phone: [phone] Triglyceride 229 mg/dL High [facility] Work Phone: [phone] very low density lipoproteins 46 mg/dL High 5-40 [facility] Work Phone: [phone] Lab Report: Liver Profileon 06-01-2017 Alanine aminotransferase (ALT) 26 U/L 12-78 [facility] [employer] Work Phone: [phone] Albumin 3.7 g/dL 3.4-5.0 [facility] Work Phone: [phone] Alkaline phosphatase (ALP) 96 U/L Invalid Interpretation Code 45-117 [facility] [employer] Work Phone: [phone] ALP enzyme act/vol (Bld) 96 U/L 45-117 [facility] [employer] Work Phone: [phone] Aspartate aminotransferase (AST) 18 U/L 15-37 [facility] [employer] Work Phone: [phone] Bilirubin (direct) 0.19 mg/dL 0.00-0.30 [facility] Work Phone: [phone] Bilirubin (total) 1.00 mg/dL 0.20-1.00 [facility] [employer] Work Phone: [phone] Globulin 3.9 g/dL High 2.3-3.5 [facility] [employer] Work Phone: [phone] Globulin mass conc (S) 3.9 g/dL High 2.3-3.5 [facility] [employer] Work Phone: [phone] Protein 7.6 g/dL 6.4-8.2 [facility] [employer] Work Phone: [phone] Office Visit: [facility] 12-08-19 17 Documentation of current medications (procedure) Done Invalid Interpretation Code [facility] [employer] Work Phone: [phone] Protein mass conc Done [facility] [employer] Work Phone: [phone] Clinical Lists Update: Prelo reel slitter 12-06-2016 Left ventricular Ejection fraction 60 % Invalid Interpretation Code [facility] [employer] Work Phone: [phone] Office Visiton 06-11-2016 Dietary management education, guidance, and counseling (procedure) yes Invalid Interpretation Code [facility] [employer] Work Phone: [phone] Replaced Document: Heron Lowe 06-11-2016 EKG QRS axis 23 deg [facility] Work Phone: [phone] electrocardiogram interpretation Sinus Rhythm WITHIN NORMAL LIMITS Invalid Interpretation Code [employer] [facility] [employer] Work Phone: [phone] GE use only - for [employer] import when terms are not otherwise specified 391 ms Invalid Interpretation Code [facility] [employer] Work Phone: [phone] Interpretation Sinus Rhythm WITHIN NORMAL LIMITS [facility] Work Phone: [phone] P [place] 23 deg [facility] Work Phone: [phone] P wave axis, electrocardiogram 23 deg Invalid Interpretation Code [facility] [employer] Work Phone: [phone] RI Interval 152 ms [facility] [employer] Work Phone: [phone] RI interval, electrocardiogram 152 ms Invalid Interpretation Code [facility] [employer] Work Phone: [phone] Pulse (Heart Rate) 85 /min Invalid Interpretation Code [facility] [employer] Work Phone: [phone] QRS axis, electrocardiogram 23 deg Invalid Interpretation Code [facility] [employer] Work Phone: [phone] QRS Duration 90 ms [facility] [employer] Work Phone: QRS duration, electrocardiogram 90 ms Invalid Interpretation Code [employer] [facility] [employer] Work Phone: [phone] QT Interval new path ms [facility] [employer] Work Phone: QT interval, electrocardiogram new path ms Invalid Interpretation Code [facility] [employer] Work Phone: [phone] QTc Taylor 391 ms [facility] [employer] Work Phone: [phone] T [place] 28 deg [facility] [employer] Work Phone: T wave axis, electrocardiogram 28 deg Invalid Interpretation Code [facility] [employer] Work Phone: [phone] Office Visit: F/u Gerd and L ipidson 02-10-2016 Tobacco smoking status NHIS Never Invalid Interpretation Code [facility] [employer] Work Phone: [phone] Tobacco smoking status NHIS Never smoker [employer] [facility] [employer] Work Phone: [phone] Tobacco use CPHS Never smoker Invalid Interpretation Code [facility] [employer] Work Phone: [phone] Rx Refill: eRx Request for O MEPRAZOLE DR 40MG CAPon 08-10-2015 e-scripts messenger refill request [id number]`OMEPRAZOLE DR 40MG CAP`40MG``30 Capsule`30`TAKE ONE CAPSULE BY MOUTH ONCE DAILY``1`0`02/04/2015` 015`Marisela Renee*`[id number]`[phone]``OME[address]OLE DR 40MG CAP Quantity: 30 Capsule Instructions: TAKE ONE CAPSULE BY MOUTH ONCE DAILY [employer] [facility] [employer] Work Phone: [facility]_ [id number]`OMEPRAZO LE DR 40MG CAP`40MG``30 Capsule`30`TAKE ONE CAPSULE BY MOUTH ONCE DAILY``1`0`02/04/2015` 015`Marisela Wright [place]*`[id number]`[phone]``OMEPRAZOLE DR 40MG CAP Quantity: 30 Capsule Instructions: TAKE ONE CAPSULE BY MOUTH ONCE DAILY [employer] Work Phone: Lab Report: Rheumatoid Facto carson 04-23-2015 rheumatoid factor < 10.0 Invalid Interpretation Code <15 [facility] [employer] Work Phone: Office Visit: [facility] 10-07-20 14 cardiac risk group C Invalid Interpretation Code [facility] [employer] Work Phone: General cardiovascular disease 10Y risk [#] Ophelia.D'Edita N/A Invalid Interpretation Code [facility] [employer] [facility] Work Phone: Replaced Document: Heron ROSARIO Observationson 01-07-2014 Pulse (Heart Rate) 425 ms Invalid Interpretation Code [facility] [employer] Work Phone: Lab Report: TROPon 4 Troponin I ng/mL Normal <0.06 [facility] [facility] Work Phone: Vital Signs Date Time Vital Sign Value Performing Clinician Rey viera 03-27-2025 02:50-0400 Body temperature 98 [degF] Dr. Charlotte Fatima DO Work Phone: [facility] 03-27-2025 02:50-0400 Diastolic blood pressure 72 mm[Hg] Dr. Charlotte Fatima DO Work Phone: [facility] 03-27-2025 02:50-0400 Heart rate 80 /min Dr. Charlotte Fatima DO Work Phone: [facility] 03-27-2025 02:50-0400 Respiratory rate 14 /min Dr. Charlotte Fatima DO Work Phone: [facility] 03-27-2025 02:50-0400 SaO2% (BldA) [Mass fraction] 100 % Dr. Charlotte Fatima DO Work Phone: [facility] 03-27-2025 02:50-0400 Systolic blood pressure 132 mm[Hg] Dr. Charlotte Fatima DO Work Phone: [facility] 03-26-2025 22:56-0400 Body height 162.[address] Charlotte Fatima DO Work Phone: [facility] 03-26-2025 22:56-0400 Body mass index (BMI) [Ratio] 30.8 kg/m2 Dr. Charlotte Fatima DO Work Phone: [facility] 03-26-2025 22:56-0400 Body weight 81.[address] Charlotte Fatima DO Work Phone: [facility] 12-07-2024 13:04-0500 Body height 162.[address] Charlotte Fatima DO Work Phone: [facility] 12-07-2024 13:04-0500 Body mass index (BMI) [Ratio] 30.5 kg/m2 Dr. Charlotte Fatima DO Work Phone: [facility] 12-07-2024 13:04-0500 Body temperature 96.1 [degF] Dr. Charlotte Fatima DO Work Phone: [facility] 12-07-2024 13:04-0500 Body weight 80.[address] Charlotte Fatima DO Work Phone: [facility] 12-07-2024 13:04-0500 Diastolic blood pressure 73 mm[Hg] Dr. Charlotte Fatima DO Work Phone: [facility] 12-07-2024 13:04-0500 Heart rate 67 /min Dr. Charlotte Fatima DO Work Phone: [facility] 12-07-2024 13:04-0500 Respiratory rate 16 /min Dr. Charlotte Fatima DO Work Phone: [facility] 12-07-2024 13:04-0500 SaO2% (BldA) [Mass fraction] 96 % Dr. Charlotte Fatima DO Work Phone: [facility] 12-07-2024 13:04-0500 Systolic blood pressure 147 mm[Hg] Dr. Charlotte Fatima DO Work Phone: [facility] 12-12-2023 13:16-0500 Body height 162.[address] Charlotte Fatima Work Phone: [facility] 12-12-2023 13:16-0500 Body mass index (BMI) [Ratio] 30 kg/m2 Dr. Charlotte Fatima Work Phone: [facility] 12-12-2023 13:16-0500 Body temperature 97.6 [degF] Dr. Charlotte Fatima Work Phone: [facility] 12-12-2023 13:16-0500 Body weight 79.[address] Charlotte Fatima Work Phone: [facility] 12-12-2023 13:16-0500 Diastolic blood pressure 63 mm[Hg] Dr. Charlotte Fatima Work Phone: [facility] 12-12-2023 13:16-0500 Heart rate 77 /min Dr. Charlotte Fatima Work Phone: [facility] 12-12-2023 13:16-0500 Respiratory rate 14 /min Dr. Charlotte Fatima Work Phone: [facility] 12-12-2023 13:16-0500 SaO2% (BldA) [Mass fraction] 94 % Dr. Charlotte Fatima Work Phone: [facility] 12-12-2023 13:16-0500 Systolic blood pressure 132 mm[Hg] Dr. Charlotte Fatima Work Phone: [facility] 07-22-2023 11:00-0400 Body height 162.[address] Charlotte Fatima Work Phone: [facility] 07-22-2023 11:00-0400 Body mass index (BMI) [Ratio] 30 kg/m2 Dr. Charlotte Fatima Work Phone: [facility] 07-22-2023 11:00-0400 Body weight 79.[address] Charlotte Fatima Work Phone: [facility] 07-22-2023 11:00-0400 Heart rate 79 /min Dr. Charlotte Fatima Work Phone: [facility] 07-22-2023 11:00-0400 Respiratory rate 16 /min Dr. Charlotte Fatima Work Phone: [facility] 06-13-2023 13:09-0400 Body height 162.56 cm [facility] 06-13-2023 13:09-0400 Body mass index (BMI) [Ratio] 29.2 kg/m2 [facility] 06-13-2023 13:09-0400 Body temperature 97.1 [degF] [facility] 06-13-2023 13:09-0400 Body weight 77.11 kg [facility] 06-13-2023 13:09-0400 Diastolic blood pressure 79 mm[Hg] [facility] 06-13-2023 13:09-0400 Heart rate 70 /min [facility] 06-13-2023 13:09-0400 Respiratory rate 16 /min [facility] 06-13-2023 13:09-0400 SaO2% (BldA) [Mass fraction] 97 % [facility] 06-13-2023 13:09-0400 Systolic blood pressure 139 mm[Hg] [facility] 12-14-2022 11:59-0500 Body height 162.[address] Charlotte Fatima Work Phone: [facility] 12-14-2022 11:59-0500 Body mass index (BMI) [Ratio] 29.2 kg/m2 Dr. Charlotte Fatima Work Phone: [facility] 12-14-2022 11:59-0500 Body temperature 97.8 [degF] Dr. Charlotte Fatima Work Phone: [facility] 12-14-2022 11:59-0500 Body weight 77.[address] Charlotte Fatima Work Phone: [facility] 12-14-2022 11:59-0500 Diastolic blood pressure 74 mm[Hg] Dr. Charlotte Fatima Work Phone: [facility] 12-14-2022 11:59-0500 Heart rate 76 /min Dr. Charlotte Fatima Work Phone: [facility] 12-14-2022 11:59-0500 Respiratory rate 16 /min Dr. Charlotte Fatima Work Phone: [facility] 12-14-2022 11:59-0500 SaO2% (BldA) [Mass fraction] 93 % Dr. Charlotte Fatima Work Phone: [facility] 12-14-2022 11:59-0500 Systolic blood pressure 123 mm[Hg] Dr. Charlotte Fatima Work Phone: [facility] 12-02-2022 08:45-0500 Body mass index (BMI) [Ratio] 29.2 kg/m2 Dr. Charlotte Fatima Work Phone: [facility] 12-02-2022 08:45-0500 Body weight 77.[address] Charlotte Fatima Work Phone: [facility] 02-16-2023 08:45-0500 Diastolic blood pressure 84 mm[Hg] Dr. Charlotte Fatima Work Phone: [facility] 12-02-2022 08:45-0500 Heart rate 71 /min Dr. Charlotte Fatima Work Phone: [facility] 12-02-2022 08:45-0500 Respiratory rate 18 /min Dr. Charlotte Fatima Work Phone: [facility] 12-02-2022 08:45-0500 SaO2% (BldA) [Mass fraction] 92 % Dr. Charlotte Fatima Work Phone: [facility] 12-02-2022 08:45-0500 Systolic blood pressure 129 mm[Hg] Dr. Charlotte Fatima Work Phone: [facility] 06-13-2017 14:44-0400 Heart rate 65 /min Vasu Trivedi MD [facility] Work Phone: 06-13-2017 14:31-0400 BMI (Body Mass Index) 25.74 kg/m2 [facility] Work Phone: 06-13-2017 14:31-0400 BP Diastolic 72 mm[Hg] [facility] Work Phone: 06-13-2017 14:31-0400 BP Systolic 108 mm[Hg] [facility] Work Phone: 06-13-2017 14:31-0400 Height 162.56 cm [facility] Work Phone: 06-13-2017 14:31-0400 Pulse (Heart Rate) 68 /min [facility] Work Phone: 06-13-2017 14:31-0400 Respiratory Rate 16 /min [facility] Work Phone: 06-13-2017 14:31-0400 Weight 68.04 kg [facility] Work Phone: 12-08-2016 14:29-0500 BMI (Body Mass Index) 26.81 kg/m2 Vasu Trivedi MD [facility] Work Phone: 12-08-2016 14:29-0500 BP Diastolic 70 mm[Hg] Vasu Trivedi MD [facility] Work Phone: 12-08-2016 14:29-0500 BP Systolic 122 mm[Hg] Vasu Trivedi MD [facility] Work Phone: 12-08-2016 14:29-0500 BSA (Body Surface Area) 1.76 m2 Vasu Trivedi MD [facility] Work Phone: 12-08-2016 14:29-0500 Pulse (Heart Rate) 68 /min [facility] Work Phone: 12-08-2016 14:29-0500 Respiratory Rate 18 /min Vasu Trivedi MD [facility] Work Phone: 12-08-2016 14:29-0500 Weight 70.85 kg Vasu Trivedi MD [facility] Work Phone: 06-11-2016 14:45-0400 Heart rate 85 /min Harumi DeFinis [facility] Work Phone: 02-10-2016 08:26-0400 Body Temperature 98.9 [degF] Vasu Trivedi MD [facility] Work Phone: 01-07-2014 08:13-0400 Heart rate 425 ms Harumi DeFinis [facility] Work Phone: 12-25-2013 09:26-0400 Height 162.56 cm Vasu Trivedi MD [facility] Work Phone: Encounters Encounter Date Encounter Type Care Provider Facility Start: 06-07-2025 ambulatory Charlotte Fatima Facility:[facility] Start: 06-03-2025 ambulatory Charlotte Fatima Facility:[facility] Start: 05-14-2025 End: 05-14-[address] Charlotte Fatima DO Work Phone: [facility] Start: 05-14-2025 End: 05-14-[address] Charlotte Fatima DO [facility] Work Phone: Start: 05-14-2025 End: 05-14-2025 ambulatory Charlotte Fatima Facility:[facility] Start: 03-26-2025 End: 03-27-2025 Emergency department patient visit Dr. Charlotte Fatima DO Work Phone: -Emergency Department Work Phone: Start: 12-13-2024 End: 12-13-[address] Charlotte Fatima DO Work Phone: [facility] Work Phone: Start: 12-13-2024 End: 12-13-[address] Charlotte Fatima DO -Outpatient Bone Densitometry Work Phone: Start: 12-13-2024 End: 12-13-2024 ambulatory Charlotte Fatima Facility:[facility] Start: 12-07-2024 End: 12-07-[address] Charlotte Fatima DO -Medical Out Work Phone: Start: 12-07-2024 End: 12-07-2024 ambulatory Charlotteholland Fatima Facility:[facility] Start: 08-22-2024 End: 08-22-2024 ambulatory Charlotte Malnils Facility:[facility] Start: 07-19-2024 End: 07-19-2024 ambulatory Charlotte Malnils Facility:[facility] Start: 07-10-2024 End: 07-10-2024 ambulatory Charlotte Malys Facility:[facility] Start: 06-12-2024 End: 06-12-2024 [facility] Start: 02-09-2024 End: 02-09-[address] Charlotte Fatima Work Phone: [facility] Work Phone: Start: 02-09-2024 End: 02-09-[address] Charlotte Fatima Work Phone[facility] Start: 12-12-2023 End: 12-12-[address] Charlotte Fatima Work Phone: [facility]-Medical Out Work Phone: Start: 11-07-2023 End: 11-07-2023 Non-patient / Non-visit Dr. Charlotte Fatima Work Phone: [facility] Work Phone: Start: 11-07-2023 End: 11-07-[address] Charlotte Fatima Work Phone: [facility] Work Phone: Start: 11-07-2023 End: 11-07-[address] Charlotte Fatima Work Phone: [facility] Work Phone: Start: 08-19-2023 End: 08-19-[address] Charlotte Fatima Work Phone: [facility] Work Phone: Start: 08-19-2023 End: 08-19-[address] Charlotte Fatima Work Phone: [facility]-Laboratory Work Phone: Start: 07-22-2023 End: 07-22-[address] Charlotte Fatima Work Phone: [facility] Work Phone: Start: 06-13-2023 End: 06-13-2023 ambulatory [facility] Work Phone: Start: 06-13-2023 End: 06-13-2023 Patient encounter procedure [facility]-Medical Out Work Phone: Start: 01-27-2023 End: 01-27-[address] Charlotte Fatima Work Phone: [facility] Work Phone: Start: 01-27-2023 End: 01-27-[address] Charlotte Fatima Work Phone: [facility]-Sleep Lab Start: 01-12-2023 End: 01-12-[address] Charlotte Fatima Work Phone: [facility] Work Phone: Start: 01-12-2023 End: 01-12-[address] Charlotte Fatima Work Phone: [facility]-Sleep Lab Start: 12-20-2022 End: 12-20-[address] Charlotte Fatima Work Phone: [facility] Work Phone: Start: 12-20-2022 End: 12-20-[address] Charlotte Fatima Work Phone: [facility]-Sleep Lab Start: 12-14-2022 End: 12-14-[address] Charlotte Fatima Work Phone: [facility] Work Phone: Start: 12-14-2022 End: 12-14-[address] Charlotte Fatima Work Phone: [facility]-Medical Out Start: 12-13-2022 Non-patient / Non-visit Dr. Charlotte Fatima Work Phone: [facility] Start: 12-10-2022 Non-patient / Non-visit Dr. Charlotte Fatima Work Phone: [facility] Start: 12-10-2022 End: 12-10-[address] Charlotte Fatima Work Phone: [facility] Work Phone: Start: 12-10-2022 End: 12-10-[address] Charlotte Fatima Work Phone: [facility]-Cardiovascular Services Start: 12-02-2022 End: 12-02-[address] Charlotte Fatima Work Phone: [facility] Start: 11-04-2022 End: 11-04-2022 ambulatory [facility] Work Phone: Start: 11-04-2022 End: 11-04-2022 Patient encounter procedure [facility]-Outpatient Bone Densitometry Start: 10-20-2022 End: 10-20-2022 ambulatory [facility] Work Phone: Start: 10-20-2022 End: 10-20-2022 Patient encounter procedure [facility], Jacob Hager [facility] Start: 08-18-2022 End: 08-18-2022 ambulatory [facility] Work Phone: Start: 08-18-2022 End: 08-18-2022 Patient encounter procedure [facility]-Outpatient Breast Imaging Start: 01-09-2021 End: 01-09-2021 Patient encounter procedure [facility] Start: 12-19-2020 End: 12-19-2020 Patient encounter procedure [facility] Start: 10-13-2020 End: 10-17-2020 Evaluation and management of inpatient BOWEN RAMSEY [facility] Start: 08-10-2018 End: 08-11-2018 Patient encounter procedure [facility] Start: 07-06-2018 End: 07-07-2018 Patient encounter procedure NORM [facility] Start: 05-25-2018 Patient encounter procedure NORM [facility] Start: 05-01-2018 End: 05-01-2018 Patient encounter procedure [facility] Start: 04-13-2018 End: 04-13-2018 Patient encounter procedure NORM [facility] Start: 03-27-2018 Patient encounter procedure NORM MONTES [facility] Start: 03-15-2018 Evaluation and management of inpatient Norm Montes Facility:[facility] Start: 03-14-2018 End: 03-21-2018 Evaluation and management of inpatient NORM MONTES [facility] Start: 03-14-2018 Patient encounter procedure NORM MONTES [facility] Start: 03-03-2018 End: 03-06-2018 Evaluation and management of inpatient JHONNY SEBASTIAN [facility] Start: 03-02-2018 End: 03-02-2018 Ambulatory UNKNOWN PROVIDER Facility:[facility] Procedures Date Procedure Procedure Detail Performing Clinician Start: 05-14-2025 MRI of brain with contrast Dr. Charlotte Fatima DO Work Phone: Start: 03-26-2025 Plain chest X-ray Dr. Elyssa Fatima DO Work Phone: Start: 03-26-[address] Charlotte Fatima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 for Visit Atherosclerotic hear t disease of [place] coronary artery without angina pectoris Pure hypercholesterolemia Chief Complaint 1 y fu PREV PFM PT SCREENING Unilateral primary osteoarthritis, left knee PREOP Reason for Visit Atherosclerotic hear t disease of [place] coronary artery without angina pectoris Pure hypercholesterolemia Chief Complaint Unilateral primary o steoarthritis, left knee PREOP PROLIA BIOPSY Chief Complaint Admit Date PROLIA December 07, 2024 12:51pm OSTEO December 13, 2024 12:44pm Chief Complaint Admit Date PROLIA December 07, 2024 12:51pm OSTEO December 13, 2024 12:44pm chest March 26, 2025 10:5 4pm Chief Complaint Admit Date chest March 26, 2025 10:5 4pm RIGHT ARM WEAKNESS, NUMBNESS, DYSARTHRIA May 14, 2025 9:56am Additional Source Comments INFORMATION SOURCE (unrecogn ized section and content) DATE CREATED AUTHOR 04/04/2018 [facility] DATE CREATED AUTHOR AUTHOR'S ORGANIZ ATION 09/16/2018 [facility] DATE CREATED AUTHOR AUTHOR'S ORGANIZ ATION 09/16/2018 [facility] DATE CREATED AUTHOR AUTHOR'S ORGANIZ ATION 01/21/2021 [facility] DATE CREATED AUTHOR AUTHOR'S ORGANIZ ATION 06/01/2025 [facility] Goals (unrecognized section and content) Goals may be documented in a n alternate sectionGoals may be documented in an alternate sectionGoals may be documented in an alternate sectionGoals may be documented in an alternate sectionGoals may be documented in an alternate sectionGoals may be documented in an alternate sectionGoals may be documented in an alternate sectionGoals may be documented in an alternate sectionGoals may be documented in an alternate sectionGoals may be documented in an alternate sectionGoals may be documented in an alternate sectionGoals may be documented in an alternate sectionGoals may be documented in an alternate sectionGoals may be documented in an alternate sectionGoals may be documented in an alternate section Care Teams (unrecognized sec tion and content) Team Status: Active Member Role Status Dates Dr. Charlotte Fatima , DO Family Provider Active Dr. Charlotte Fatima , DO Primary Care Provider Active Team Status: Inactive Member Role Status Dates Dr. Charlotte Fatima DO Primary Care Provider, Attending P rovider Active Team Status: Active Member Role Status Dates Dr. Charlotte Fatima DO Primary Care Provide r, Attending Provider, Referring Provider Active Team Status: Inactive Member Role Status Dates Dr. Charlotte Fatima DO Primary Care Provide r, Attending Provider, Referring Provider Active Team Status: Inactive Member Role Status Dates Dr. Charlotte Fatima DO Primary Care Provider, Referring P rovider Active Clive H Silvio MANAGER MOTOR, MANAGER MOTOR-C Attending Provider Active Team Status: Active Member Role Status Dates Dr. Charlotte Fatima DO Primary Care Provider Active Clive Anguiano MANAGER MOTOR, MANAGER MOTOR-C Referring Provider, Other Provide r Active Dr. Vasu Trivedi MD Attending Provider Active Team Status: Active Member Role Status Dates Dr. Charlotte Fatima DO Primary Care Provider Active Clive H Silvio MANAGER MOTOR, MANAGER MOTOR-C Attending Provider Active Team Status: Inactive Member Role Status Dates Dr. Charlotte Fatima DO Primary Care Provider Active Clive H Silvio MANAGER MOTOR, MANAGER MOTOR-C Attending Provider, Referring Pro vider Active Team Status: Inactive Member Role Status Dates Dr. Charlotte Fatima DO Primary Care Provider, Referring P rovider Active Dr. Fede Andre MD Attending Provider Active Team Status: Inactive Member Role Status Dates Dr. Charlotte Fatima DO Primary Care Provider Active Dr. Paco Woods DO Attending Provider, Referring P rovider Active Team Status: Inactive Member Role Status Dates Dr. Charlotte Fatima DO Primary Care Provider Active Dr. Fede Andre MD Attending Provider Active Team Status: Active Member Role Status Dates Dr. Charlotte Fatima DO Primary Care Provider Active Dr. Roosevelt Taylor MD Attending Provider Active Dr. Solis Jung MD Referring Provider Active Team Status: Inactive Member Role Status Dates Dr. Charlotte Fatima DO Primary Care Provider Active Dr. Solis Jung MD Attending Provider, Referring P rovider Active Team Status: Active Member Role Status Dates Dr. Charlotte Fatima DO Primary Care Provider Active Team Status: Inactive Member Role Status Dates Dr. Charlotte Fatima DO Primary Care Provider Active Start: December 07, 2024 End: December 07, 2024 Dr. Charlotte Fatima DO Attending Provider Active St art: December 07, 2024 End: December 07, 2024 Dr. Charlotte Fatima DO Referring Provider Active St art: December 07, 2024 End: December 07, 2024 Team Status: Inactive Member Role Status Dates Dr. Charlotte Fatima DO Primary Care Provider Active Start: December 13, 2024 End: December 13, 2024 Dr. Charlotte Fatima DO Attending Provider Active St art: December 13, 2024 End: December 13, 2024 Dr. Charlotte Fatima DO Referring Provider Active St art: December 13, 2024 End: December 13, 2024 Team Status: Inactive Member Role Status Dates Dr. Charlotte Fatima DO Primary Care Provider Active Start: March 26, 2025 End: March 27, 2025 Dr. Bobby Tran DO Emergency Provider Active Start: March 26, 2025 End: March 27, 2025 Team Status: Active Member Role/Relationship Status Dates Dr. Charlotte Fatima DO Primary Care Provider Active Team Status: Inactive Member Role/Relationship Status Dates Dr. Charlotte Fatima DO Primary Care Provider Active Start: March 26, 2025 End: March 27, 2025 Dr. Bobby Tran DO Attending Provider Active Start: March 26, 2025 End: March 27, 2025 Dr. Bobby Tran DO Emergency Provider Active Start: March 26, 2025 End: March 27, 2025 Team Status: Inactive Member Role/Relationship Status Dates Dr. Charlotte Fatima DO Primary Care Provider Active Start: May 14, 2025 End: May 14, 2025 Dr. Charlotte Fatima DO Attending Provider Active St art: May 14, 2025 End: May 14, 2025 Dr. Charlotte Fatima DO Referring Provider Active St art: May 14, 2025 End: May 14, 2025 FOR RECORDS PERTAINING TO PATIENTS WHO ARE OR HAVE BEEN ENROLLED IN A CHEMICAL DEPENDENCY/SUBSTANCEABUSE PROGRAM, SOME INFORMATION MAY BE OMITTED. This clinical summary was aggregated from multiple sources. Caution should be exercised in using it in the provision of clinical care. This summary normalizes information from multiple sources, and as a consequence, information in this document may materially change the coding, format and clinical context of patient data. In addition, data may be omitted in some cases. CLINICAL DECISIONS SHOULD BE BASED ON THE PRIMARY CLINICAL RECORDS. [employer] provides no warranty or guarantee of the accuracy or completeness of information in this document.
== END | disposition home or self-care (01) ==
PROVIDERS: PCP Family Medicine; Referring Provider Family Medicine; Visit Provider Family Medicine
DX: R29.898 Other symptoms and signs involving the musculoskeletal system (principal); R20.0 Anesthesia of skin; R47.1 Dysarthria and anarthria
CPT/HCPCS: 70544

== ENCOUNTER 2025-06-07 12:06 | Outpatient (CLI) | payer MEDICARE, SELFPAY ==
[2025-06-07 12:26] VITALS: BP 121/73; PULSE 73; RESP 16; TEMP 35.9; O2SAT 95; BMI 30.5
[2025-06-07] MEDS: DENOSUMAB 60 MG/ML SC (12:27)
== END 2025-06-07 23:59 | disposition home or self-care (01) ==
LOC: MEDOUTP 12:06
PROVIDERS: PCP Family Medicine; Referring Provider Family Medicine; Visit Provider Family Medicine
DX: M81.0 Age-related osteoporosis without current pathological fracture (principal)
CPT/HCPCS: 96372; J0897

== ENCOUNTER → 2025-08-23 | Outpatient (CLI) | payer MEDICARE, SELFPAY ==
--- NOTE | 2025-08-23 11:57 | BI_ITS ---
EXAM: SCRN MAMM (CAD)W/HENNY BILAT DATE: 08/23/2025 CLINICAL HISTORY: F, Age 65 y/o , SCREEN TECHNIQUE: Procedure Code: [id number] Modality: MG Procedure: SCRN MAMM (CAD)W/HENNY BILAT COMPARISON: Prior exam(s) dated 08/22/2024, 08/19/2023, 08/18/2022. FINDINGS: TISSUE DENSITY: There are scattered areas of fibroglandular density. Bilateral Breast Mammographic Findings: No significant masses, calcifications or other abnormalities are identified. BI/SCRN MAMM (CAD)W/HENNY BILAT IMPRESSION: There is no mammographic evidence of malignancy. OVERALL FINAL ASSESSMENT BI-RADS 1: NEGATIVE. RECOMMENDATION: Routine annual follow-up in 1 Year Additional Recommendation none A letter with findings and recommendations will be mailed to the patient. Reading Location: [id number]
== END | disposition home or self-care (01) ==
LOC: OPBI 11:55
PROVIDERS: PCP Family Medicine; Referring Provider Family Medicine; Visit Provider Family Medicine
DX: Z12.31 Encounter for screening mammogram for malignant neoplasm of breast (principal)
CPT/HCPCS: 77063; 77067

== ENCOUNTER → 2025-09-30 | Outpatient (CLI) | payer MEDICARE, SELFPAY ==
[2025-09-30 10:22] LABS: Hematocrit 44.4 % (37-47); Hemoglobin 14.5 g/dL (12.0-15.0); Immature Granulocytes Count 0.050 X10^3/uL (0.0-0.0); Mean Corp Hgb Conc 32.7 g/dL (32-36); Mean Corpuscular Volume 90.1 fL (81-99); Mean Platelet Vol. 10.2 fl (6.2-12.0); NRBC Flagged by Analyzer 0 % (0-5); Platelet Count 375 K/mm3 (150-450); RBC Distribution Width CV 12.5 % (11.6-14.6); RBC Distribution Width SD 41.1 fl (35.1-43.9); Red Blood Count 4.93 M/mm3 (4.2-5.4); White Blood Count 9.0 K/mm3 (4.4-11.0)
[2025-09-30 10:47] LABS: AST(SGOT) 63 U/L (<=31); Alanine Aminotransfer ALT/SGPT 85 U/L (<=34); Albumin, Serum 4.4 g/dL (3.4-4.8); Alkaline Phosphatase 54 U/L (35-104); Anion Gap 11 (5-15); BUN 12 mg/dL (4-19); BUN/Creat Ratio 10.7 RATIO (10-20); Calcium,Total 9.5 mg/dL (7.6-11.0); Carbon Dioxide 26.8 mmol/L (21.0-32.0); Chloride 105 mmol/L (98-108); Cholesterol 174 mg/dL (<=200); Globulin 3.1 g/dL (2.2-4.2); Glucose 118 mg/dL (70-99); Low Density Lipoprotein Calc. 90 mg/dL; Potassium 4.4 mmol/L (3.3-5.1); Triglycerides 209 mg/dL; Very Low Density Lipoprotein 42 mg/dL (5-40); cholesterol:hdl ratio screen 3.59
== END | disposition home or self-care (01) ==
LOC: LAB 09:51
PROVIDERS: PCP Family Medicine; Referring Provider Family Medicine; Visit Provider Family Medicine
DX: E78.5 Hyperlipidemia, unspecified (principal); Z51.81 Encounter for therapeutic drug level monitoring; R73.01 Impaired fasting glucose
CPT/HCPCS: 36415; 80053; 80061; 83036; 85025